=== PATIENT | male | born 1955 | race Caucasian/White ===

== ENCOUNTER 2020-04-01 14:48 | Observation (INO) | payer OTHER ==
[2020-04-01] MEDS ORDERED: SODIUM CHLORIDE 0.9% 1,000 ML IV STA (15:45)
[2020-04-01] MEDS ORDERED: KETOROLAC 15 MG/ML 1 ML VIAL IVP STA (15:45)
[2020-04-01 16:03] LABS: Basophils # (A) 0.1 k/uL (0-0.2); Basophils % (A) 1 %; Eosinophils # (A) 0.1 k/uL (0-0.7); Eosinophils % (A) 1 %; HGB 16.4 gm/dL (13.0-17.5); Lymphocytes # (A) 1.2 k/uL (1.0-4.8); Lymphocytes % (A) 11 %; MCH 31.6 pg (25.0-35.0); MCHC 34.3 g/dL (31.0-37.0); MCV 92.1 fL (80.0-100.0); Mean Platelet Volume 6.5; Monocytes # (A) 0.8 k/uL (0-1.0); Monocytes % (A) 7 %; Neutrophils # (A) 9.2 k/uL (1.3-7.7); Neutrophils % (A) 79 %; Platelet Count 342 k/uL (150-450); RBC 5.21 m/uL (4.30-5.90); RDW 13.1 % (11.5-15.5); WBC 11.6 k/uL (3.8-10.6)
[2020-04-01 16:04] LABS: Appearance,Urine Clear (Clear); Bilirubin,Urine Negative (Negative); Blood,Urine Negative (Negative); Color,Urine Light Yellow; Glucose,Urine (UA) Negative (Negative); Ketones,Urine Negative (Negative); Leukocyte Esterase,Urine Negative (Negative); Nitrite,Urine Negative (Negative); Protein,Urine Negative (Negative); Specific Gravity,Urine 1.004 (1.001-1.035); Urobilinogen,Urine <2.0 mg/dL (<2.0)
--- NOTE | 2020-04-01 16:13 | ED ---
Abdominal Pain HPI - General Source: patient Mode of arrival: ambulatory Limitations: no limitations <Radha Minor - Last Filed: 04/01/20 18:30> <Miriam Johnson - Last Filed: 04/02/20 13:24> - General Chief Complaint: Abdominal Pain Stated Complaint: abd pain Time Seen by Provider: 04/01/20 15:16 - History of Present Illness Initial Comments: Patient is a 64-year-old male presenting to emergency Department with complaints of lower abdominal pain that started about 4 AM this morning. Patient states he tried to go back to sleep however he only slept for about an hour and the pain continued. He describes the pain as going back and forth his lower abdomen but then has localized to the right lower quadrant. He denies history of abdominal surgeries. He states he does not have an appetite today, but denies any nausea or vomiting. He denies diarrhea. He denies history of fever, chills, shortness of breath or chest pain. He states he had a bowel movement today which was normal. No trouble with urination. He has no further complaints at this time. Upon arrival to the ER his vital signs are stable. (Radha Minor) - Related Data Home Medications Medication Instructions Recorded Confirmed Aspirin EC [Ecotrin Low Dose] 81 mg PO DAILY 04/01/20 04/01/20 Cholecalciferol [Vitamin D3 (25 1,000 unit PO DAILY 04/01/20 04/01/20 Mcg = 1000 Iu)] HYDROcodone/APAP 7.5-325MG [[place] 1 tab PO TID PRN 04/01/20 04/01/20 7.5-325] Metoprolol Succinate [Toprol XL] 50 mg PO DAILY 04/01/20 04/01/20 amLODIPine [Norvasc] 10 mg PO DAILY 04/01/20 04/01/20 lisinopriL 40 mg PO DAILY 04/01/20 04/01/20 Allergies Allergy/AdvReac Type Severity Reaction Status Date / Time No Known Allergies Allergy Verified 04/01/20 17:30 Review of Systems ROS Other: All systems not noted in ROS Statement are negative. <Radha Minor - Last Filed: 04/01/20 18:30> ROS Other: All systems not noted in ROS Statement are negative. <Miriam Johnson - Last Filed: 04/02/20 13:24> ROS Statement: Those systems with pertinent positive or pertinent negative responses have been documented in the HPI. Past Medical History Past Medical History: Hypertension Additional Past Medical History / Comment(s): hypercholestremia. History of Any Multi-Drug Resistant Organisms: None Reported Additional Past Surgical History / Comment(s): below the knee amputation. 2 fatty tumors removed. Past Psychological History: No Psychological Hx Reported Smoking Status: Never smoker Past Alcohol Use History: Rare Past Drug Use History: None Reported <Radha Minor - Last Filed: 04/01/20 18:30> General Exam Limitations: no limitations <Radha Minor - Last Filed: 04/01/20 18:30> - General Exam Comments Initial Comments: GENERAL: Patient is well-developed and well-nourished. Patient is nontoxic and in no acute distress, but does look mildly uncomfortable. HEAD: Atraumatic, normocephalic. EYES: Pupils equal round and reactive to light, extraocular movements intact, sclera anicteric, conjunctiva are normal. Eyelids were unremarkable. ENT: TMs normal, nares patent, oropharynx clear without exudates. Moist mucous membranes. NECK: Normal range of motion, supple without lymphadenopathy or JVD. LUNGS: Unlabored respirations. Breath sounds clear to auscultation bilaterally and equal. No wheezes rales or rhonchi. HEART: Regular rate and rhythm without murmurs, rubs or gallops. ABDOMEN: Tender to palpation in the right lower quadrant. Soft, normoactive bowel sounds. No guarding, no rebound. No masses appreciated. : Deferred MUSCULOSKELETAL: Normal extremities with adequate strength and normal range of motion, no pitting or edema. No clubbing or cyanosis. NEUROLOGICAL: Patient is alert and oriented x 3. Motor and sensory are also intact. Cranial nerves II through XII grossly intact. Symmetrical smile. Normal speech, normal gait. PSYCH: Normal mood, normal affect. SKIN: Warm, Dry, normal turgor, no rashes or lesions noted. (Radha Minor) Course Vital Signs 04/01/20 04/01/20 15:05 18:39 Temperature 98.6 F 98.8 F Pulse Rate 77 59 L Respiratory 20 12 Rate Blood Pressure 182/102 176/85 O2 Sat by Pulse 97 98 Oximetry Medical Decision Making - Lab Data Result diagrams: 04/01/20 15:52 04/01/20 15:52 <Radha Minor - Last Filed: 04/01/20 18:30> - Lab Data Result diagrams: 04/01/20 15:52 04/01/20 15:52 <Miriam Johnson - Last Filed: 04/02/20 13:24> - Medical Decision Making Patient is 64-year-old male here for right lower quadrant tenderness since 4 AM this morning. Vital signs are stable. Lab work shows slight leukocytosis of 11.6, rest of vitals are within normal limits. CT of the abdomen and pelvis shows appendix measuring up to 8 mm, no significant fast riding around the appendix. This could be very early acute appendicitis. She was given some fluids and pain control. We did speak to on-call surgeon, Dr. Box who agreed to admission. We will give him a dose of Zosyn, keep him NPO until further notice. Patient is agreeable with this plan of care. Case discussed with Dr. Johnson. (Radha Minor) I was available for consultation in the emergency department. The history and physical exam were done by the midlevel provider. I was consulted for this patie nts care. I reviewed the case with the midlevel provider and based on their presentation of the patient, I agree with the assessment, medical decision making and plan of care as documented. I evaluated the patient myself. I agree with the diagnosis and therefore called Dr. Box. She agreed to admit the patient. Patient remains NPO for her evaluation. Chart was dictated using [employer] dictation software. Attempts were made to correct any dictation errors however some typographical errors may persist. Patient was seen during a national state of emergency due to the Covid-19 pandemic. (Miriam Johnson) - Lab Data Lab Results 04/01/20 04/01/20 04/01/20 Range/Units 15:52 15:52 15:52 WBC 11.6 H (3.8-10.6) k/uL RBC 5.21 (4.30-5.90) m/uL Hgb 16.4 (13.0-17.5) gm/dL Hct 48.0 (39.0-53.0) % MCV 92.1 (80.0-100.0) fL MCH 31.6 (25.0-35.0) pg MCHC 34.3 (31.0-37.0) g/dL RDW 13.1 (11.5-15.5) % Plt Count 342 (150-450) k/uL Neutrophils % 79 % Lymphocytes % 11 % Monocytes % 7 % Eosinophils % 1 % Basophils % 1 % Neutrophils # 9.2 H (1.3-7.7) k/uL Lymphocytes # 1.2 (1.0-4.8) k/uL Monocytes # 0.8 (0-1.0) k/uL Eosinophils # 0.1 (0-0.7) k/uL Basophils # 0.1 (0-0.2) k/uL Sodium 137 (137-145) mmol/L Potassium 4.2 (3.5-5.1) mmol/L Chloride 101 (98-107) mmol/L Carbon Dioxide 26 (22-30) mmol/L Anion Gap 10 mmol/L BUN 15 (9-20) mg/dL Creatinine 0.97 (0.66-1.25) mg/dL Est GFR (CKD-EPI)AfAm >90 (>60 ml/min/1.73 sqM) Est GFR (CKD-EPI)NonAf 82 (>60 ml/min/1.73 sqM) Glucose 104 H (74-99) mg/dL Plasma Lactic Acid [place] (0.7-2.0) mmol/L Calcium 9.8 (8.4-10.2) mg/dL Total Bilirubin 1.1 (0.2-1.3) mg/dL AST 32 (17-59) U/L ALT 54 H (4-49) U/L Alkaline Phosphatase 125 (38-126) U/L Total Protein 7.9 (6.3-8.2) g/dL Albumin 4.7 (3.5-5.0) g/dL Lipase 91 (23-300) U/L Urine Color Light Yellow Urine Appearance Clear (Clear) Urine pH 6.0 (5.0-8.0) Ur Specific [place] 1.004 (1.001-1.035) Urine Protein Negative (Negative) Urine Glucose (UA) Negative (Negative) Urine Ketones Negative (Negative) Urine Blood Negative (Negative) Urine Nitrite Negative (Negative) Urine Bilirubin Negative (Negative) Urine Urobilinogen <2.0 (<2.0) mg/dL Ur Leukocyte Esterase Negative (Negative) 04/01/20 Range/Units 15:52 WBC (3.8-10.6) k/uL RBC (4.30-5.90) m/uL Hgb (13.0-17.5) gm/dL Hct (39.0-53.0) % MCV (80.0-100.0) fL MCH (25.0-35.0) pg MCHC (31.0-37.0) g/dL RDW (11.5-15.5) % Plt Count (150-450) k/uL Neutrophils % % Lymphocytes % % Monocytes % % Eosinophils % % Basophils % % Neutrophils # (1.3-7.7) k/uL Lymphocytes # (1.0-4.8) k/uL Monocytes # (0-1.0) k/uL Eosinophils # (0-0.7) k/uL Basophils # (0-0.2) k/uL Sodium (137-145) mmol/L Potassium (3.5-5.1) mmol/L Chloride (98-107) mmol/L Carbon Dioxide (22-30) mmol/L Anion Gap mmol/L BUN (9-20) mg/dL Creatinine (0.66-1.25) mg/dL Est GFR (CKD-EPI)AfAm (>60 ml/min/1.73 sqM) Est GFR (CKD-EPI)NonAf (>60 ml/min/1.73 sqM) Glucose (74-99) mg/dL Plasma Lactic Acid [place] 1.6 (0.7-2.0) mmol/L Calcium (8.4-10.2) mg/dL Total Bilirubin (0.2-1.3) mg/dL AST (17-59) U/L ALT (4-49) U/L Alkaline Phosphatase (38-126) U/L Total Protein (6.3-8.2) g/dL Albumin (3.5-5.0) g/dL Lipase (23-300) U/L Urine Color Urine Appearance (Clear) Urine pH (5.0-8.0) Ur Specific [place] (1.001-1.035) Urine Protein (Negative) Urine Glucose (UA) (Negative) Urine Ketones (Negative) Urine Blood (Negative) Urine Nitrite (Negative) Urine Bilirubin (Negative) Urine Urobilinogen (<2.0) mg/dL Ur Leukocyte Esterase (Negative) Disposition Decision Date: 04/01/20 Decision Time: 18:07 <Radha Minor - Last Filed: 04/01/20 18:30> <Miriam Johnson - Last Filed: 04/02/20 13:24> Clinical Impression: Abdominal pain, Appendicitis Disposition: ADMITTED IP TO THIS HOSP Condition: Good
[2020-04-01 16:14] LABS: ALT 54 U/L (4-49); AST 32 U/L (17-59); African American GFR (CKD) >90 (>60 ml/min/1.73 sqM); Albumin 4.7 g/dL (3.5-5.0); Alkaline Phosphatase 125 U/L (38-126); Anion Gap 10 mmol/L; Blood Urea Nitrogen 15 mg/dL (9-20); Calcium 9.8 mg/dL (8.4-10.2); Carbon Dioxide 26 mmol/L (22-30); Chloride 101 mmol/L (98-107); Glucose 104 mg/dL (74-99); Non-African American GFR(CKD) 82 (>60 ml/min/1.73 sqM); Potassium 4.2 mmol/L (3.5-5.1); Sodium 137 mmol/L (137-145); Total Bilirubin 1.1 mg/dL (0.2-1.3); Total Protein 7.9 g/dL (6.3-8.2)
--- NOTE | 2020-04-01 17:22 | CT ---
EXAMINATION TYPE: CT abdomen pelvis w con DATE OF EXAM: 04/01/2020 COMPARISON: None HISTORY: RLQ pain CT DLP: 1744.5 mGycm Automated exposure control for dose reduction was used. CONTRAST: Performed with IV Contrast, patient injected with 100 mL of Isovue 300. The lung bases are clear. There is no pleural effusion. Heart size is normal. There is no pericardial effusion. There is fatty infiltration of the liver. Gallbladder appears normal. Bile ducts are not dilated. Spl een is intact. There is no pancreatic mass. Stomach is intact. There is no adrenal mass. Kidneys show satisfactory contrast opacification. There is no hydronephrosi s. There is no retroperitoneal adenopathy. The delayed images show normal renal excretion. There is n o evidence of a renal mass. Ureters are not dilated. Bladder distends smoothly. There is no inguinal hernia. There is no free fluid in the pelvis. There is no sign of a pelvic mass. Appendix measures up to 8 mm. I do not see any significant fat stranding around the appendix. Lumbar vertebra have normal alignment. Posterior elements are intact. Disc spaces are fairly normal. There is no compression fracture. The bony pelvis is intact. Hip joints are intact. IMPRESSION: Appendix is top normal in size. No renal stone or obstruction. A very early acute appendicitis cannot be entirely excluded.
[2020-04-01] MEDS ORDERED: MORPHINE SULFATE 4 MG/ML SYRINGE IV PRN (18:05)
[2020-04-01] MEDS ORDERED: NALOXONE 0.4 MG/ML 1 ML VIAL IV PRN (18:05)
[2020-04-01] MEDS ORDERED: KETOROLAC 15 MG/ML 1 ML VIAL IVP PRN (18:05)
[2020-04-01] MEDS ORDERED: ONDANSETRON 4 MG/2 ML VIAL IVP PRN (18:05)
[2020-04-01] MEDS ORDERED: ACETAMINOPHEN TAB 325 MG TAB PO PRN (18:05)
[2020-04-01] MEDS ORDERED: PIPERACILLIN-TAZOBACTAM 3.375 GM in SODIUM CHLORIDE 0.9% 100 ML IVPB STA (18:06)
--- NOTE | 2020-04-01 18:31 | P.GSHP ---
History of Present Illness H&P Date: 04/01/20 Chief Complaint: Abdominal pain The patient's a 64-year-old man who began having abdominal pain in the mid abdomen about 4 AM. He thought maybe he needed to have a bowel movement so went into the bathroom and did have a bowel movement with no relief of pain. He laid down to go to sleep and wasn't able to fall asleep very long. The pain gradually radiated to the right lower quadrant. He had no appetite. He had some fevers and chills. He has never had anything like this in the past. No prior abdominal surgery. No diarrhea, constipation, blood in the stool or urin e. No prior viral illness. No notes is been ill. - Review of Systems All systems: negative Past Medical History Past Medical History: Hypertension Additional Past Medical History / Comment(s): hypercholestremia. History of Any Multi-Drug Resistant Organisms: None Reported Additional Past Surgical History / Comment(s): below the knee amputation. 2 fatty tumors removed. Past Psychological History: No Psychological Hx Reported Smoking Status: Never smoker Past Alcohol Use History: Rare Past Drug Use History: None Reported Medications and Allergies Home Medications Medication Instructions Recorded Confirmed Type Aspirin EC [Ecotrin Low Dose] 81 mg PO DAILY 04/01/20 04/01/20 History Cholecalciferol [Vitamin D3 (25 1,000 unit PO DAILY 04/01/20 04/01/20 History Mcg = 1000 Iu)] HYDROcodone/APAP 7.5-325MG [[place] 1 tab PO TID PRN 04/01/20 04/01/20 History 7.5-325] Metoprolol Succinate [Toprol XL] 50 mg PO DAILY 04/01/20 04/01/20 History amLODIPine [Norvasc] 10 mg PO DAILY 04/01/20 04/01/20 History lisinopriL 40 mg PO DAILY 04/01/20 04/01/20 History Allergies Allergy/AdvReac Type Severity Reaction Status Date / Time No Known Allergies Allergy Verified 04/01/20 17:30 Surgical - Exam Osteopathic Statement: *. No significant issues noted on an osteopathic structural exam other than those noted in the History and Physical/Consult. Vital Signs Temp Pulse Resp BP Pulse Ox 98.6 F 77 20 182/102 97 04/01/20 15:05 04/01/20 15:05 04/01/20 15:05 04/01/20 15:05 04/01/20 15:05 - General well developed, well nourished, no distress - Eyes normal ocular movement - Neck trachea midline - Respiratory normal respiratory effort, clear to auscultation - Cardiovascular Rhythm: regular - Abdomen Abdomen: soft, tender (Right lower quadrant), guarding (Mild voluntary), no rigid, rebound (Tender to percussion right lower quadrant) Hernia: no umbilical Results - Labs 04/01/20 15:52 04/01/20 15:52 Abnormal Lab Results - Last 24 Hours (Table) 04/01/20 04/01/20 Range/Units 15:52 15:52 WBC 11.6 H (3.8-10.6) k/uL Neutrophils # 9.2 H (1.3-7.7) k/uL Glucose 104 H (74-99) mg/dL ALT 54 H (4-49) U/L Diabetes panel 04/01/20 Range/Units 15:52 Sodium 137 (137-145) mmol/L Potassium 4.2 (3.5-5.1) mmol/L Chloride 101 (98-107) mmol/L Carbon Dioxide 26 (22-30) mmol/L BUN 15 (9-20) mg/dL Creatinine 0.97 (0.66-1.25) mg/dL Glucose 104 H (74-99) mg/dL Calcium 9.8 (8.4-10.2) mg/dL AST 32 (17-59) U/L ALT 54 H (4-49) U/L Alkaline Phosphatase 125 (38-126) U/L Total Protein 7.9 (6.3-8.2) g/dL Albumin 4.7 (3.5-5.0) g/dL Calcium panel 04/01/20 Range/Units 15:52 Calcium 9.8 (8.4-10.2) mg/dL Albumin 4.7 (3.5-5.0) g/dL Pituitary panel 04/01/20 Range/Units 15:52 Sodium 137 (137-145) mmol/L Potassium 4.2 (3.5-5.1) mmol/L Chloride 101 (98-107) mmol/L Carbon Dioxide 26 (22-30) mmol/L BUN 15 (9-20) mg/dL Creatinine 0.97 (0.66-1.25) mg/dL Glucose 104 H (74-99) mg/dL Calcium 9.8 (8.4-10.2) mg/dL Adrenal panel 04/01/20 Range/Units 15:52 Sodium 137 (137-145) mmol/L Potassium 4.2 (3.5-5.1) mmol/L Chloride 101 (98-107) mmol/L Carbon Dioxide 26 (22-30) mmol/L BUN 15 (9-20) mg/dL Creatinine 0.97 (0.66-1.25) mg/dL Glucose 104 H (74-99) mg/dL Calcium 9.8 (8.4-10.2) mg/dL Total Bilirubin 1.1 (0.2-1.3) mg/dL AST 32 (17-59) U/L ALT 54 H (4-49) U/L Alkaline Phosphatase 125 (38-126) U/L Total Protein 7.9 (6.3-8.2) g/dL Albumin 4.7 (3.5-5.0) g/dL - Imaging CT scan - abdomen: report reviewed, image reviewed Assessment and Plan (1) Abdominal pain Current Visit: Yes Status: Acute Code(s): R10.9 - UNSPECIFIED ABDOMINAL PAIN SNOMED Code(s): 99727380 (2) Appendicitis Current Visit: Yes Status: Acute Code(s): K37 - UNSPECIFIED APPENDICITIS SNOMED Code(s): 21889114 Plan: I discussed early appendicitis with the patient. His history is difficult appendicitis. I recommended laparoscopic appendectomy possible open. The procedure, risks, complications in usual postoperative course was discussed with him. Questions were encouraged and answered. He'll receive prophylactic antibiotics along with DVT and ulcer prophylaxis. Recommendations to follow.
[2020-04-01] MEDS ORDERED: ROCURONIUM 10 MG/ML (10 ML VIAL) IV ONE (19:01)
[2020-04-01] MEDS ORDERED: LACTATED RINGERS 1,000 ML IV ONE (19:01)
[2020-04-01] MEDS ORDERED: HYDROmorphone (PF) 1 MG/ML ONE (19:01)
[2020-04-01] MEDS ORDERED: SUCCINYLCHOLINE CHLORIDE 100 MG/5 ML SYR IV ONE (19:01)
[2020-04-01] MEDS ORDERED: METOPROLOL TARTRATE 5 MG/5 ML VIAL IVP ONE (19:01)
[2020-04-01] MEDS ORDERED: LIDOCAINE 1% INJ 10MG/ML (20 ML MDV) ONE (19:01)
[2020-04-01] MEDS ORDERED: PROPOFOL 10 MG/ML 20 ML VIAL IV ONE (19:01)
[2020-04-01] MEDS ORDERED: fentaNYL (PF) 50 MCG/ML 2 ML AMP ONE (19:01)
[2020-04-01] MEDS ORDERED: BUPIVACAINE (PF) 0.25% 30 ML VIAL SQ ONE ×2 (19:20)
[2020-04-01] MEDS ORDERED: LIDOCAINE 1%-EPI 1:100,000 20 ML VIAL SQ ONE ×2 (19:20)
[2020-04-01] MEDS ORDERED: HYDROcodone/APAP 5-325MG 1 EACH TAB PO PRN ×2 (19:45)
[2020-04-01] MEDS ORDERED: HYDROmorphone 0.5 MG/0.5 ML SYRINGE IVP PRN (19:45)
--- NOTE | 2020-04-01 19:45 | P.OP ---
Date of Procedure: 04/01/20 Preoperative Diagnosis: Acute appendicitis Postoperative Diagnosis: Acute appendicitis Procedure(s) Performed: Laparoscopic appendectomy Anesthesia: YUN Surgeon: Denia Box Estimated Blood Loss (ml): 10 Pathology: other (Appendix) Condition: stable Disposition: PACU Indications for Procedure: The patient presented with abdominal pain which radiated down to the right lower quadrant along with fevers, chills, nausea and vomiting. CT was suggestive of early acute appendicitis Description of Procedure: The patient's taken the operative suite where he is prepped and draped in the usual sterile manner under general endotracheal anesthetic. An infraumbilical incision was made and a Veress needle was placed into the abdominal cavity. Pneumoperitoneum was established with CO2 gas. Sites are chosen for accessory trochars needs are placed through small skin incisions. The appendix is inflamed and there is some localized peritonitis. No evidence of gangrenous change. The liver, diaphragm, large and small bowel were otherwise normal where they were seen. The mesentery the appendix was taken down with harmonic scissors. The appendix was then ligated with 0 PDS Endoloops 2. The appendix was then transected and placed into a specimen retrieval bag. Some was examined and noted be hemostatic. The excess irrigant was suctioned out. The pneumoperitoneum was released. The trochars were removed. The specimen retrieval bag was removed. The fascia at the umbilicus was closed with 0 Vicryl. The skin incisions were closed with 4-0 Vicryl in a subcuticular manner. Steri-Strips and dressings were applied. He tolerated the procedure w ithout difficulty and was taken recovery room in satisfactory condition. According to or personnel, all counts were correct.
[2020-04-01] MEDS ORDERED: HYDROcodone/APAP 7.5-325MG 1 EACH TAB PO PRN (19:47)
[2020-04-01] MEDS ORDERED: HYDROmorphone 0.5 MG/0.5 ML SYRINGE IVP ONE ×2 (19:55→20:00)
[2020-04-01] MEDS ORDERED: SODIUM CHLORIDE 0.9% 1,000 ML IV ONE (20:11)
[2020-04-01] MEDS: SODIUM CHLORIDE 0.9% 1,000 ML IV SCH (20:58)
[2020-04-01] MEDS: FAMOTIDINE 20 MG TAB PO SCH (21:17)
[2020-04-02] MEDS: FAMOTIDINE 20 MG TAB PO SCH (07:55)
[2020-04-02] MEDS ORDERED: amLODIPine 10 MG TAB PO SCH (09:00)
[2020-04-02] MEDS ORDERED: ASPIRIN 81 MG PO SCH (09:00)
[2020-04-02] MEDS ORDERED: CHOLECALCIFEROL 1,000 UNIT TAB PO SCH (09:00)
[2020-04-02] MEDS ORDERED: METOPROLOL SUCCINATE (ER) 50 MG TAB.ER.24H PO SCH (09:00)
[2020-04-02] MEDS ORDERED: lisinopriL 20 MG TAB PO SCH (09:00)
[2020-04-02 09:12] VITALS: BP 175/82; PULSE 82; RESP 18; TEMP 97.6
--- NOTE | 2020-04-02 11:40 | P.DS ---
Providers Date of admission: 04/01/20 18:12 Expected date of discharge: 04/02/20 Attending physician: Denia Box Primary care physician: Alli Spear - Discharge Diagnosis(es) (1) Abdominal pain Current Visit: Yes Status: Acute (2) Appendicitis Current Visit: Yes Status: Acute Hospital Course: Patient presented with typical symptoms and signs of acute appendicitis. He was taken to the OR where he underwent laparoscopic appendectomy. He was given prophylactic antibiotics. Watch overnight. He was doing well postoperative day 1 and felt to be stable for discharge. Patient Condition at Discharge: Good Plan - Discharge Summary Discharge Rx Participant: No New Discharge Prescriptions: No Action Metoprolol Succinate [Toprol XL] 50 mg PO DAILY HYDROcodone/APAP 7.5-325MG [[place] 7.5-325] 1 tab PO TID PRN PRN Reason: Pain Cholecalciferol [Vitamin D3 (25 Mcg = 1000 Iu)] 1,000 unit PO DAILY lisinopriL 40 mg PO DAILY amLODIPine [Norvasc] 10 mg PO DAILY Aspirin EC [Ecotrin Low Dose] 81 mg PO DAILY Discharge Medication List Aspirin EC [Ecotrin Low Dose] 81 mg PO DAILY 04/01/20 [History] Cholecalciferol [Vitamin D3 (25 Mcg = 1000 Iu)] 1,000 unit PO DAILY 04/01/20 [History] HYDROcodone/APAP 7.5-325MG [[place] 7.5-325] 1 tab PO TID PRN 04/01/20 [History] Metoprolol Succinate [Toprol XL] 50 mg PO DAILY 04/01/20 [History] amLODIPine [Norvasc] 10 mg PO DAILY 04/01/20 [History] lisinopriL 40 mg PO DAILY 04/01/20 [History] Follow up Appointment(s)/Referral(s): Alli Spear MD [Primary Care Provider] - 1-2 days Denia Box DO [Doctor of Osteopathic Medicine] - 2 Weeks Activity/Diet/Wound Care/Special Instructions: The Band-Aids may be removed Friday then you may shower. No tub bath for 1 week. Remove the small tapes in 1 week. Follow-up with Dr. Box in 2 weeks. Call with questions or concerns. Discharge Disposition: HOME SELF-CARE
[2020-04-02] MEDS: SODIUM CHLORIDE 0.9% 1,000 ML IV SCH (12:14)
== END 2020-04-02 13:54 | disposition home or self-care (01) ==
LOC: EC 14:48 → 1SOBS 18:12
PROVIDERS: ADMIT Surgery; ATTEND Surgery
DX: K35.80 Unspecified acute appendicitis (principal); I10 Essential (primary) hypertension; Z79.899 Other long term (current) drug therapy; Z89.511 Acquired absence of right leg below knee; G47.33 Obstructive sleep apnea (adult) (pediatric); Z99.89 Dependence on other enabling machines and devices; Z87.891 Personal history of nicotine dependence; Z79.82 Long term (current) use of aspirin; Z98.890 Other specified postprocedural states
CPT/HCPCS: 44970; 96361; 96374; 99285; 36415; 88304; 80053; 83605; 83690; 85025; 81003; 74177; G0378 ×2; J2405; J2001; J3010; J1170 ×2; J1885 ×2; J0330; J2704; Q9967

== ENCOUNTER 2020-12-18 02:05 | Inpatient (IN) | payer MEDICARE, OTHER ==
[2020-12-18 02:29] LABS: Basophils # (A) 0.1 k/uL (0-0.2); Basophils % (A) 1 %; Eosinophils # (A) 0.2 k/uL (0-0.7); Eosinophils % (A) 2 %; HCT 44.1 % (39.0-53.0); HGB 15.4 gm/dL (13.0-17.5); Lymphocytes # (A) 1.6 k/uL (1.0-4.8); Lymphocytes % (A) 22 %; MCH 31.2 pg (25.0-35.0); Mean Platelet Volume 6.3; Monocytes # (A) 0.6 k/uL (0-1.0); Monocytes % (A) 9 %; Neutrophils # (A) 4.5 k/uL (1.3-7.7); Neutrophils % (A) 64 %; Platelet Count 292 k/uL (150-450); RBC 4.96 m/uL (4.30-5.90); RDW 12.9 % (11.5-15.5); WBC 7.1 k/uL (3.8-10.6)
--- NOTE | 2020-12-18 02:33 | ED ---
Chest Pain HPI - General Chief Complaint: Chest Pain Stated Complaint: Chest Pain Time Seen by Provider: 12/18/20 02:13 Source: patient Mode of arrival: wheelchair Limitations: no limitations - History of Present Illness MD Complaint: chest pain Onset/Timin -: minutes(s) Onset: during rest Pain Location: left chest Pain Radiation: LUE Severity: moderate Quality: dull Consistency: constant Improves With: nothing Worsens With: nothing Anginal Symptoms: diaphoresis, dyspnea Treatments Prior to Arrival: none - Related Data Home Medications Medication Instructions Recorded Confirmed Aspirin EC [Ecotrin Low Dose] 81 mg PO DAILY 04/01/20 04/01/20 Cholecalciferol [Vitamin D3 (25 1,000 unit PO DAILY 04/01/20 04/01/20 Mcg = 1000 Iu)] HYDROcodone/APAP 7.5-325MG [[place] 1 tab PO TID PRN 04/01/20 04/01/20 7.5-325] Metoprolol Succinate [Toprol XL] 50 mg PO DAILY 04/01/20 04/01/20 amLODIPine [Norvasc] 10 mg PO DAILY 04/01/20 04/01/20 lisinopriL 40 mg PO DAILY 04/01/20 04/01/20 Allergies Allergy/AdvReac Type Severity Reaction Status Date / Time No Known Allergies Allergy Verified 12/18/20 02:10 Review of Systems ROS Statement: Those systems with pertinent positive or pertinent negative responses have been documented in the HPI. ROS Other: All systems not noted in ROS Statement are negative. Constitutional: Denies: fever, chills Respiratory: Reports: dyspnea. Denies: cough Cardiovascular: Reports: chest pain. Denies: palpitations, orthopnea, edema, syncope Gastrointestinal: Denies: abdominal pain, nausea, vomiting Genitourinary: Denies: dysuria, hematuria Musculoskeletal: Denies: back pain Skin: Denies: rash Neurological: Denies: headache, weakness, numbness EKG Findings - EKG Results: EKG: interpreted by SAI KATHLEEN, sinus rhythm (Rate 67 bpm), normal axis, normal QRS, normal ST/T, no acute changes Past Medical History Past Medical History: Coronary Artery Disease (CAD), Hypertension, Sleep Apnea/CPAP/BIPAP Additional Past Medical History / Comment(s): hypercholestremia History of Any Multi-Drug Resistant Organisms: None Reported Past Surgical History: Heart Catheterization Additional Past Surgical History / Comment(s): below the knee amputation. 2 fatty tumors removed. Past Anesthesia/Blood Transfusion Reactions: No Reported Reaction Past Psychological History: No Psychological Hx Reported Smoking Status: Former smoker Past Alcohol Use History: Rare Past Drug Use History: None Reported General Exam Limitations: no limitations General appearance: alert, in no apparent distress Head exam: Present: atraumatic, normocephalic Eye exam: Present: normal appearance. Absent: scleral icterus, conjunctival injection ENT exam: Present: normal oropharynx Neck exam: Present: normal inspection Respiratory exam: Present: normal lung sounds bilaterally. Absent: respiratory distress, wheezes, rales, rhonchi, stridor Cardiovascular Exam: Present: regular rate, normal rhythm, normal heart sounds. Absent: systolic murmur, diastolic murmur, rubs, gallop GI/Abdominal exam: Present: soft. Absent: distended, tenderness, guarding, rebound, rigid, mass Extremities exam: Present: normal capillary refill, other (Right above-knee amputation). Absent: pedal edema, calf tenderness Back exam: Present: normal inspection. Absent: CVA tenderness (R), CVA t enderness (L) Neurological exam: Present: alert Skin exam: Present: warm, dry, intact, normal color. Absent: rash Course Vital Signs 12/18/20 02:06 Temperature 98.3 F Pulse Rate 78 Respiratory 20 Rate Blood Pressure 225/96 O2 Sat by Pulse 99 Oximetry Disposition Referrals: Alli Spear MD [Primary Care Provider] - 1-2 days
[2020-12-18 02:38] LABS: INR 0.9 (<1.2); Partial Thromboplastin Time 24.9 sec (22.0-30.0); Prothrombin Time 9.8 sec (9.0-12.0)
[2020-12-18 02:45] LABS: Albumin 4.5 g/dL (3.5-5.0); Calcium 9.1 mg/dL (8.4-10.2); Magnesium 1.9 mg/dL (1.6-2.3); Potassium 3.4 mmol/L (3.5-5.1); Total Bilirubin 0.7 mg/dL (0.2-1.3); Total Protein 7.3 g/dL (6.3-8.2)
[2020-12-18] MEDS ORDERED: MORPHINE SULFATE 4 MG/ML SYRINGE IV STA (02:46)
[2020-12-18] MEDS ORDERED: ASPIRIN 81 MG PO STA (02:46)
[2020-12-18] MEDS ORDERED: NITROGLYCERIN SL TABS 0.4 MG TAB SUBLINGUAL STA (02:46)
--- NOTE | 2020-12-18 02:59 | XR ---
EXAMINATION TYPE: XR chest 2V DATE OF EXAM: 12/18/2020 COMPARISON: 04/13/2012 HISTORY: Chest pain TECHNIQUE: FINDINGS: Heart is normal. Lungs are clear of consolidation. There is no heart failure. There are aura st leads. There are no hilar masses. Costophrenic angles are clear. IMPRESSION: No active cardiopulmonary disease. Normal heart. No change.
[2020-12-18] MEDS ORDERED: HEPARIN SODIUM 1,000 UN/ML (10ML VL) IV ONE (03:10)
[2020-12-18] MEDS ORDERED: HEPARIN SODIUM 1,000 UN/ML (10ML VL) IV PRN (03:10)
[2020-12-18] MEDS ORDERED: NITROGLYCERIN SL TABS 0.4 MG TAB SUBLINGUAL PRN ×2 (03:11→12:19)
[2020-12-18] MEDS ORDERED: HEPARIN SOD,PORK IN 0.45% NACL 25,000 UNIT in 0.45% NACL 1 250ML.BAG IV SCH (03:15)
[2020-12-18] MEDS: METOPROLOL TARTRATE 25 MG TAB PO SCH ×2 (08:00→20:20)
[2020-12-18] MEDS ORDERED: ATORVASTATIN 40 MG TAB PO SCH (10:15)
[2020-12-18] MEDS ORDERED: VERAPAMIL 2.5 MG/ML 2 ML AMP ONE (11:01)
[2020-12-18] MEDS ORDERED: HEPARIN SODIUM 1,000 UN/ML (10ML VL) ONE (11:01)
[2020-12-18] MEDS ORDERED: fentaNYL (PF) 50 MCG/ML 2 ML AMP ONE (11:02)
[2020-12-18] MEDS ORDERED: LIDOCAINE 1% INJ 10MG/ML (20 ML MDV) ONE (11:02)
--- NOTE | 2020-12-18 11:10 | P.CRDCN ---
History of Present Illness Consult date: 12/18/20 Consult reason: chest pain History of present illness: The patient is a 65-year-old male who presented to the emergency room after experiencing epigastric discomfort with associated diaphoresis and tightness in his throat. He states he experienced a similar episode several months back, however it resolved within a half an hour. He states he was sitting in his recliner chair around 1 AM when his symptoms started. He did not take any nitroglycerin, however he did take a full-strength aspirin. He states when the pain did not resolve within a reasonable amount of time, he notified his son to bring him to the emergency room. The patient was interviewed and examined resting comfortably in bed. He does state he has been more fatigued with exertional activities during the last several months. He states caring in the groceries several days ago, he had to stop and rest due to fatigue and shortness of breath. No chest pain currently. The patient states his father has atrial fibrillation and his mother has congestive heart failure. No family history of coronary artery disease. The patient states he underwent left heart cath almost 10 years ago, which was unremarkable. He states he was told to take statins, however he discontinued the medication after several months. He states he is compliant with his current medical regimen including antihypertensives. He quit smoking several years back. He denies regular alcohol use or recreational drug use. DIAGNOSTICS: Chest x-ray shows no acute cardiopulmonary disease EKG shows sinus mechanism with mild ST depression in the lateral precordial leads Laboratory data: CBC 7.1, hemoglobin 15.4, hematocrit 44.1, platelet 292, sodium 137, potassium 3.4, BUN 20, creatinine 1.01, magnesium 1.9, AST 26, ALT 41, troponin 0.05, 0.29, 0.40 PAST MEDICAL HISTORY: Hypertension, dyslipidemia, appendicitis, right BKA REVIEW OF SYSTEMS: No fever or chills. No cough or expectoration. No diaphoresis. Patient denies headache, dizziness, blurred vision, double vision. Patient denies any stomach discomfort. No nausea, vomiting. No hematochezia. No hematemesis. Denies any black stools or blood in his stools. Denies dysuria or hematuria. No muscle weakness or numbness. PHYSICAL EXAMINATION: This is a 65-year-old obese male in no apparent distress at the time of my examination. HEENT: Head is atraumatic, normocephalic. Pupils are equal, round. Sclerae anicteric. Conjunctivae are clear. Mucous membranes of the mouth are moist. Neck is supple. There is no jugular venous distention. No carotid bruit is heard. CHEST EXAMINATION: Lungs are clear to auscultation. No chest wall tenderness is noted on palpation or with deep breathing. HEART EXAMINATION: Heart regular rate and rhythm. S1, S2 heard. No murmurs, gallops or rub. ABDOMEN: Soft, nontender. Bowel sounds are heard. No organomegaly noted. EXTREMITIES: 2+ peripheral pulses with no evidence of peripheral edema and no ca lf tenderness noted. Right BKA. NEUROLOGIC EXAMINATION: Patient is awake, alert and oriented x3. FINAL ASSESSMENT AND PLAN: Non-ST elevated myocardial infarction, rising troponins, proceed with coronary angiogram Hypertension Dyslipidemia, noncompliant with statin therapy Obesity, BMI 31 Former smoker PLAN: Continue heparin drip Proceed with coronary angiogram to rule out severe coronary artery disease Resume statin therapy Further recommendations will be based on clinical course The patient has been seen and evaluated. Plan of care has been reviewed and agreed upon by Dr Pendleton. Past Medical History Past Medical History: Coronary Artery Disease (CAD), Hypertension, Sleep Apnea/CPAP/BIPAP Additional Past Medical History / Comment(s): hypercholestremia History of Any Multi-Drug Resistant Organisms: None Reported Past Surgical History: Heart Catheterization Additional Past Surgical History / Comment(s): below the knee amputation. 2 fatty tumors removed. Past Anesthesia/Blood Transfusion Reactions: No Reported Reaction Past Psychological History: No Psychological Hx Reported Smoking Status: Former smoker Past Alcohol Use History: Rare Past Drug Use History: None Reported Additional Drug Use History / Comment(s): quit smoking 2015. Ocasional marijuana use. - Past Family History Mother Family Medical History: Congestive Heart Failure (CHF), Hypertension Father Family Medical History: Cancer, Hypertension Additional Family Medical History / Comment(s): prostate cancer Medications and Allergies Home Medications Medication Instructions Recorded Confirmed Type Cholecalciferol [Vitamin D3 (25 2,000 unit PO DAILY 04/01/20 12/18/20 History Mcg = 1000 Iu)] HYDROcodone/APAP 7.5-325MG [[place] 1 tab PO TID PRN 04/01/20 12/18/20 History 7.5-325] Metoprolol Succinate [Toprol XL] 50 mg PO DAILY 04/01/20 12/18/20 History amLODIPine [Norvasc] 10 mg PO DAILY 04/01/20 12/18/20 History lisinopriL 40 mg PO DAILY 04/01/20 12/18/20 History [place]-3 Fatty Acids [[place]-3] 1,000 mg PO DAILY 12/18/20 12/18/20 History Zinc 50 mg PO DAILY 12/18/20 12/18/20 History Allergies Allergy/AdvReac Type Severity Reaction Status Date / Time No Known Allergies Allergy Verified 12/18/20 07:15 Physical Exam Vitals: Vital Signs Temp Pulse Pulse Resp BP BP Pulse Ox 12/18/20 08:00 56 L 12/18/20 07:53 98.1 F 56 L 18 138/74 94 L 12/18/20 04:14 98.2 F 62 16 153/75 98 12/18/20 03:32 68 18 141/75 95 12/18/20 02:06 98.3 F 78 20 225/96 99 Intake and Output 12/17/20 12/18/20 12/18/20 22:59 06:59 14:59 Other: Voiding Method Toilet # Voids 1 Weight 112.4 kg Results 12/18/20 02:20 12/18/20 02:20 Cardiac Enzymes 12/18/20 12/18/20 12/18/20 Range/Units 02:20 02:20 06:04 AST 26 (17-59) U/L Troponin I 0.056 H* 0.293 H* (0.000-0.034) ng/mL 12/18/20 Range/Units 09:01 AST (17-59) U/L Troponin I 0.409 H* (0.000-0.034) ng/mL Coagulation 12/18/20 12/18/20 Range/Units 02:20 09:01 PT 9.8 (9.0-12.0) sec APTT 24.9 38.2 H (22.0-30.0) sec CBC 12/18/20 Range/Units 02:20 WBC 7.1 (3.8-10.6) k/uL RBC 4.96 (4.30-5.90) m/uL Hgb 15.4 (13.0-17.5) gm/dL Hct 44.1 (39.0-53.0) % Plt Count 292 (150-450) k/uL Comprehensive Metabolic Panel 12/18/20 Range/Units 02:20 Sodium 137 (137-145) mmol/L Potassium 3.4 L (3.5-5.1) mmol/L Chloride 104 (98-107) mmol/L Carbon Dioxide 24 (22-30) mmol/L BUN 20 (9-20) mg/dL Creatinine 1.01 (0.66-1.25) mg/dL Glucose 135 H (74-99) mg/dL Calcium 9.1 (8.4-10.2) mg/dL AST 26 (17-59) U/L ALT 41 (4-49) U/L Alkaline Phosphatase 138 H (38-126) U/L Total Protein 7.3 (6.3-8.2) g/dL Albumin 4.5 (3.5-5.0) g/dL Current Medications Generic Name Dose Route Start Last Admin Trade Name Freq PRN Reason Stop Dose Admin Aspirin 325 mg 12/19/20 09:00 Aspirin 325 Mg Tab PO DAILY [facility] Atorvastatin Calcium 40 mg 12/18/20 10:15 12/18/20 10:53 Atorvastatin 40 Mg Tab PO 40 mg DAILY SUNITA Administration Heparin Sodium (Porcine) 0 unit 12/18/20 03:10 Heparin Sodium 1,000 Un/Ml (10ml Vl) IV PER PROTOCOL PRN Low PTT Protocol Heparin Sodium/Sodium Chloride 250 mls @ 10 mls/hr 12/18/20 03:15 12/18/20 03:31 25,000 unit/ Sodium Chloride IV 8.5849 units/kg/hr .Q24H SUNITA 10 mls/hr Administration Protocol 8.5849 UNITS/KG/HR Metoprolol Tartrate 25 mg 12/18/20 09:00 12/18/20 08:00 Metoprolol Tartrate 25 Mg Tab PO 25 mg BID SUNITA Administration Nitroglycerin 0.4 mg 12/18/20 03:11 Nitroglycerin Sl Tabs 0.4 Mg Tab SUBLINGUAL Q5M PRN Chest Pain Intake and Output 12/17/20 12/18/20 12/18/20 22:59 06:59 14:59 Other: Voiding Method Toilet # Voids 1 Weight 112.4 kg 12/18/20 02:20 07/05/21 02:20
[2020-12-18] MEDS ORDERED: MIDAZOLAM 2 MG/2 ML VIAL IV ONE (11:18)
[2020-12-18] MEDS ORDERED: fentaNYL (PF) 50 MCG/ML 2 ML AMP IV ONE (11:18)
[2020-12-18] MEDS ORDERED: LIDOCAINE 1% INJ 10MG/ML (20 ML MDV) SQ ONE (11:19)
[2020-12-18] MEDS ORDERED: IV FLUID CONTINUATION 500 ML IV ONE (11:19)
[2020-12-18] MEDS ORDERED: VERAPAMIL SYRINGE (5 MG/10 ML) INTRAARTER ONE (11:22)
[2020-12-18] MEDS: HEPARIN SODIUM 1,000 UN/ML (10ML VL) IV ONE ×2 (11:27→11:52)
[2020-12-18] MEDS ORDERED: TICAGRELOR 90 MG TAB ONE (11:28)
[2020-12-18] MEDS ORDERED: TICAGRELOR 90 MG TAB PO ONE (11:30)
[2020-12-18] MEDS: NITROGLYCERIN 1000MCG/10ML SYRINGE INTRACORON ONE ×2 (11:39→11:52)
[2020-12-18] MEDS ORDERED: IOPAMIDOL-370 125ML BTL INJ ONE (11:50)
[2020-12-18] MEDS ORDERED: IOPAMIDOL-370 100ML BTL INJ ONE (11:57)
[2020-12-18] MEDS ORDERED: RX INFO: IV CONTRAST WAS GIVEN 1 EACH MISC MISCELLANE PRN (12:19)
[2020-12-18] MEDS ORDERED: ZOLPIDEM 5 MG TAB PO PRN (12:19)
[2020-12-18] MEDS ORDERED: ATROPINE SULFATE 0.1 MG/ML 10ML SYRINGE IV PRN (12:19)
[2020-12-18] MEDS ORDERED: MAG HYDROX/AL HYDROX/SIMETH 30 ML CUP PO PRN (12:19)
[2020-12-18] MEDS ORDERED: SODIUM CHLORIDE 0.9% 1,000 ML IV SCH (12:30)
--- NOTE | 2020-12-18 14:54 | CC ---
CARDIAC CATHETERIZATION REPORT Dear Dr. Spear: Mr Burroughs underwent cardiac cath and angioplasty on 12/18 and a full copy of his procedure note will be forwarded to you. In brief, he was found to have critical stenosis involving the distal right coronary artery and the proximal ramus intermedius and underwent successful stenting of both vessels. I am hoping this procedure will stabilize his status. Thank you again for allowing me to participate in this portion of his care. Please feel free to call for any questions or issues. Sincerely yours, Raphael Griffin MD. FELIPE / NEREIDA: [id number] / RAINE
--- NOTE | 2020-12-18 17:33 | P.HPIM ---
History of Present Illness H&P Date: 12/18/20 This is a 65-year-old pleasant gentleman patient of Dr. Spear he has underlying history of hyperlipidemia hypertension, obstructive sleep apnea, previous tobacco use, who was well until he experienced epigastric discomfort, and tightening of the chest and neck, this associated with diaphoresis, he does take daily aspirin, however she quit his cholesterol medication without any reasonable side effect, comes in now with acute coronary syndrome, and NSTEMI, during his ER presentation. He has relief with nitroglycerin when seen in emergency room, patient does not have any nitroglycerin at home, and was not provided for 1. Patient denies any history of coronary artery disease, heart cath was over 10 years ago, and was reportedly be to be normal In emergency room, chest x-ray shows no acute pulmonary disease, EKG shows normal sinus rhythm, with mild ST segment depression in lateral leads, hem oglobin was 15.4, WBC 7.1, creatinine 1.01, BUN 20, potassium 3.4, a LT ESTRELLA is acceptable limits, troponin was 0.0 5.29, and 0.4 Patient was seen by cardiology, and underwent heart cath December 18 showing critical disease, with stenosis distal right coronary artery, and proximal ramus, intermedius, underwent a successful stenting of both vessels. Patient remains to be on statin, beta debbie, aspirin, brilliant, and nitro when necessary. Lipitor is at 80 mg Review of Systems Constitutional: Reports as per HPI, Reports fatigue Ears, nose, mouth and throat: Reports as per HPI Cardiovascular: Reports as per HPI, Reports chest pain, Reports decreased exercise tolerance, Reports dyspnea on exertion, Denies claudication, Denies edema, Denies high blood pressure, Denies irregular heart beat, Denies leg marylou a, Denies lightheadedness, Denies orthopnea, Denies palpitations, Denies paroxysmal nocturnal dyspnea, Denies phlebitis, Denies rapid heart beat, Denies shortness of breath, Denies syncope Respiratory: Reports as per HPI, Reports snoring, Denies congestion, Denies cough, Denies cough with sputum, Denies dyspnea, Denies excessive sputum, Denies hemoptysis, Denies home oxygen, Denies pain, Denies pain on inspiration, Denies pleurisy, Denies respiratory infections, Denies sleep apnea, Denies wheezing Gastrointestinal: Reports as per HPI, Denies abdominal pain, Denies belching, Denies bloating, Denies BRBPR, Denies change in bowel habits, Denies coffee ground emesis, Denies constipation, Denies diarrhea, Denies dyspepsia, Denies early satiety, Denies excessive gas, Denies heartburn, Denies hematemesis, Denies hematochezia, Denies indigestion, Denies jaundice, Denies lactose intolerance, Denies loss of appetite, Denies melena, Denies nausea, Denies vomiting Genitourinary: Reports as per HPI, Denies urinary frequency Musculoskeletal: Denies gait dysfunction, Denies hot joints, Denies leg n umbness/tingling Integumentary: Reports as per HPI Neurological: Reports as per HPI, Denies aphasia, Denies ataxia, Denies balance difficulties, Denies burning pain, Denies change in mentation, Denies change in smell/taste, Denies change in speech, Denies confusion, Denies convulsions, Denies double vision, Denies gait dysfunction, Denies head injury, Denies headaches, Denies hearing difficulties, Denies lack of coordination, Denies loss of vision, Denies memory loss, Denies migraines, Denies motor disturbance, Denies numbness, Denies paralysis, Denies paresthesias, Denies seizures, Denies sensory deficit, Denies spasticity, Denies syncope, Denies tic, Denies tingling, Denies transient paralysis, Denies tremors, Denies vertigo, Denies weakness, Denies visual changes Psychiatric: Reports as per HPI, Denies change in sleep habits, Denies difficulty concentrating, Denies hypersomnia, Denies insomnia, Denies suicidal ideation Endocrine: Reports as per HPI, Denies fatigue, Denies heat intolerance, Denies high blood sugars, Denies low blood sugars Hematologic/Lymphatic: Reports as per HPI Allergic/Immunologic: Reports as per HPI Past Medical History Past Medical History: Coronary Artery Disease (CAD), Hypertension, Sleep Apnea/CPAP/BIPAP Additional Past Medical History / Comment(s): hypercholestremia History of Any Multi-Drug Resistant Organisms: None Reported Past Surgical History: Heart Catheterization Additional Past Surgical History / Comment(s): below the knee amputation. 2 fatty tumors removed. Past Anesthesia/Blood Transfusion Reactions: No Reported Reaction Past Psychological History: No Psychological Hx Reported Smoking Status: Former smoker Past Alcohol Use History: Rare Past Drug Use History: None Reported Additional Drug Use History / Comment(s): quit smoking 2016. Ocasional marijuana use. - Past Family History Mother Family Medical History: Cancer (Bladder cancer), Congestive Heart Failure (CHF), Hypertension Father Family Medical History: Cancer, Hypertension Additional Family Medical History / Comment(s): prostate cancer Brother(s) Family Medical History: Congestive Heart Failure (CHF) Sister(s) Family Medical History: Cancer (Uterine cancer) Medications and Allergies Home Medications Medication Instructions Recorded Confirmed Type Cholecalciferol [Vitamin D3 (25 2,000 unit PO DAILY 04/01/20 12/18/20 History Mcg = 1000 Iu)] HYDROcodone/APAP 7.5-325MG [[place] 1 tab PO TID PRN 04/01/20 12/18/20 History 7.5-325] Metoprolol Succinate [Toprol XL] 50 mg PO DAILY 04/01/20 12/18/20 History amLODIPine [Norvasc] 10 mg PO DAILY 04/01/20 12/18/20 History lisinopriL 40 mg PO DAILY 04/01/20 12/18/20 History [place]-3 Fatty Acids [[place]-3] 1,000 mg PO DAILY 12/18/20 12/18/20 History Zinc 50 mg PO DAILY 12/18/20 12/18/20 History Allergies Allergy/AdvReac Type Severity Reaction Status Date / Time No Known Allergies Allergy Verified 12/18/20 07:15 Physical Exam Vitals: Vital Signs Temp Pulse Pulse Resp BP BP Pulse Ox 12/18/20 08:00 56 L 12/18/20 07:53 98.1 F 56 L 18 138/74 94 L 12/18/20 04:14 98.2 F 62 16 153/75 98 12/18/20 03:32 68 18 141/75 95 12/18/20 02:06 98.3 F 78 20 225/96 99 Intake and Output 12/17/20 12/18/20 12/18/20 22:59 06:59 14:59 Intake Total 100 Balance 100 Intake: IV 100 Other: Voiding Method Toilet # Voids 1 Weight 112.4 kg - Constitutional General appearance: cooperative, no acute distress - EENT Eyes: EOMI, PERRLA, dentition normal, normal appearance ENT: hearing grossly normal - Neck Neck: normal ROM - Respiratory Respiratory: bilateral: CTA, negative: diminished, dullness, rales, rhonchi - Cardiovascular Rhythm: regular Heart sounds: normal: S1, S2 Abnormal Heart Sounds: no systolic murmur, no diastolic murmur, no rub, no S3 Gallop, no S4 Gallop, no click, no other - Gastrointestinal General gastrointestinal: normal bowel sounds, soft - Integumentary Integumentary: normal, normal turgor - Neurologic Neurologic: CNII-XII intact - Musculoskeletal Musculoskeletal: gait normal, strength equal bilaterally Results CBC & Chem 7: 12/18/20 02:20 12/18/20 02:20 Labs: Abnormal Lab Results - Last 24 Hours (Table) 12/18/20 12/18/20 12/18/20 Range/Units 02:20 02:20 06:04 APTT (22.0-30.0) sec Potassium 3.4 L (3.5-5.1) mmol/L Glucose 135 H (74-99) mg/dL Alkaline Phosphatase 138 H (38-126) U/L Troponin I 0.056 H* 0.293 H* (0.000-0.034) ng/mL 12/18/20 12/18/20 Range/Units 09:01 09:01 APTT 38.2 H (22.0-30.0) sec Potassium (3.5-5.1) mmol/L Glucose (74-99) mg/dL Alkaline Phosphatase (38-126) U/L Troponin I 0.409 H* (0.000-0.034) ng/mL Laboratory Results WBC 7.1 k/uL (3.8-10.6) 12/18/20 02:20 RBC 4.96 m/uL (4.30-5.90) 12/18/20 02:20 Hgb 15.4 gm/dL (13.0-17.5) 12/18/20 02:20 Hct 44.1 % (39.0-53.0) 12/18/20 02:20 MCV 89.0 fL (80.0-100.0) 12/18/20 02:20 MCH 31.2 pg (25.0-35.0) 12/18/20 02:20 MCHC 35.0 g/dL (31.0-37.0) 12/18/20 02:20 RDW 12.9 % (11.5-15.5) 12/18/20 02:20 Plt Count 292 k/uL (150-450) 12/18/20 02:20 MPV 6.3 12/18/20 02:20 Neutrophils % 64 % 12/18/20 02:20 Lymphocytes % 22 % 12/18/20 02:20 Monocytes % 9 % 12/18/20 02:20 Eosinophils % 2 % 12/18/20 02:20 Basophils % 1 % 12/18/20 02:20 Neutrophils # 4.5 k/uL (1.3-7.7) 12/18/20 02:20 Lymphocytes # 1.6 k/uL (1.0-4.8) 12/18/20 02:20 Monocytes # 0.6 k/uL (0-1.0) 12/18/20 02:20 Eosinophils # 0.2 k/uL (0-0.7) 12/18/20 02:20 Basophils # 0.1 k/uL (0-0.2) 12/18/20 02:20 PT 9.8 sec (9.0-12.0) 12/18/20 02:20 INR 0.9 (<1.2) 12/18/20 02:20 APTT 38.2 sec (22.0-30.0) H 12/18/20 09:01 Sodium 137 mmol/L (137-145) 12/18/20 02:20 Potassium 3.4 mmol/L (3.5-5.1) L 12/18/20 02:20 Chloride 104 mmol/L (98-107) 12/18/20 02:20 Carbon Dioxide 24 mmol/L (22-30) 12/18/20 02:20 Anion Gap 9 mmol/L 12/18/20 02:20 BUN 20 mg/dL (9-20) 12/18/20 02:20 Creatinine 1.01 mg/dL (0.66-1.25) 12/18/20 02:20 Est GFR (CKD-EPI)AfAm 89 (>60 ml/min/1.73 sqM) 12/18/20 02:20 Est GFR (CKD-EPI)NonAf 77 (>60 ml/min/1.73 sqM) 12/18/20 02:20 Glucose 135 mg/dL (74-99) H 12/18/20 02:20 Calcium 9.1 mg/dL (8.4-10.2) 12/18/20 02:20 Magnesium 1.9 mg/dL (1.6-2.3) 12/18/20 02:20 Total Bilirubin 0.7 mg/dL (0.2-1.3) 12/18/20 02:20 AST 26 U/L (17-59) 12/18/20 02:20 ALT 41 U/L (4-49) 12/18/20 02:20 Alkaline Phosphatase 138 U/L (38-126) H 12/18/20 02:20 Troponin I 0.409 ng/mL (0.000-0.034) H* 12/18/20 09:01 Total Protein 7.3 g/dL (6.3-8.2) 12/18/20 02:20 Albumin 4.5 g/dL (3.5-5.0) 12/18/20 02:20 Thrombosis Risk Factor Assmnt - Choose All That Apply Any of the Below Risk Factors Present?: Yes Each Factor Represents 1 point: Obesity (BMI >25) Other Risk Factors: Yes Each Risk Factor Represents 2 Points: Age 61-74 years Thrombosis Risk Factor Assessment Total Risk Factor Score: 3 Thrombosis Risk Factor Assessment Level: Moderate Risk Assessment and Plan Plan: [address] segment depression, and lateral leads, has critical disease in distal right coronary artery, and proximal ramus intermedius, underwent stenting on 2 vessels, 12/18/2020, patient remains to be on aspirin, Brillinta, Lipitor 80 a started, and Toprol XL 25 twice a day lisinopril 20 mg twice a day 2. Hyperlipidemia, now on statin 3. Hypertension, lisinopril 40 mg, current dose at 20 mg twice a day 4. History of obstructive sleep apnea, on CPAP device, from home no O2 requirements 5 Previous tobacco use, quit over 5 years ago, 6 Beer binging, 6 beers per 1 day each 1 weekend GI prophylaxis with Pepcid Senokot 1 daily and DVT prophylaxis early ambulation, on aspirin, and brillianta
[2020-12-18] MEDS: TICAGRELOR 90 MG TAB PO SCH (20:20)
[2020-12-18] MEDS: lisinopriL 20 MG TAB PO SCH (20:20)
[2020-12-18] MEDS: FAMOTIDINE 20 MG TAB PO SCH (20:20)
[2020-12-18] MEDS ORDERED: ATORVASTATIN 80 MG TAB PO SCH (21:00)
[2020-12-18] MEDS ORDERED: FUROSEMIDE 10 MG/ML 4 ML VIAL IV STA (22:22)
[2020-12-18] MEDS ORDERED: ALPRAZolam 0.25 MG TAB PO PRN (22:22)
--- NOTE | 2020-12-18 23:47 | XR ---
EXAMINATION TYPE: XR chest 1V portable DATE OF EXAM: 12/18/2020 COMPARISON: Today HISTORY: Fluid overload. TECHNIQUE: FINDINGS: Heart is normal. Lungs are clear of infiltrate. There is no heart failure. I see no evidenc e of pleural fluid. There are no hilar masses. There is minimal pleural thickening at the lung apices . IMPRESSION: Apical pleural scarring. No acute lung disease. No heart failure. No change.
--- NOTE | 2020-12-19 07:18 | ECHOF ---
Referral Reason:abn CE MEASUREMENTS -------- HEIGHT: 188.0 cm WEIGHT: 112.0 kg BP: 138/74 RVIDd: 2.8 cm (< 3.3) IVSd: 1.3 cm (0.6 - 1.1) LVIDd: 4.2 cm (3.9 - 5.3) LVPWd: 1.3 cm (0.6 - 1.1) IVSs: 1.9 cm LVIDs: 3.0 cm LVPWs: 1.6 cm LA Diam: 4.2 cm (2.7 - 3.8) LAESV Index (A-L): 31.29 ml/m Ao Diam: 3.7 cm (2.0 - 3.7) AV Cusp: 2.2 cm (1.5 - 2.6) MV EXCURSION: 17.332 mm (> 18.000) MV EF SLOPE: 104 mm/s (70 - 150) EPSS: 0.8 cm MV E Ashish: 0.76 m/s MV DecT: 272 ms MV A Ashish: 0.75 m/s MV E/A Ratio: 1.01 FINDINGS -------- Sinus rhythm. This was a technically adequate study. The left ventricular size is normal. There is mild concentric left ventricular hypertrophy. Overa ll left ventricular systolic function is low-normal with, an EF between 50 - 55 %. Basal inferior L V wall motion is hypokinetic. Basal inferoseptal LV wall motion is hypokinetic. The right ventricle is normal in size. LA is midly dilated 29-33ml/m2. The right atrial size is normal. There is mild aortic valve sclerosis. The mitral valve is normal. Mild mitral regurgitation is present. The tricuspid valve appears structurally normal. Trace tricuspid regurgitation present. There is no pulmonic regurgitation present. The aortic root size is normal. IVC Not well visulized. There is no pericardial effusion. CONCLUSIONS -------- 1. There is mild concentric left ventricular hypertrophy. 2. Overall left ventricular systolic function is low-normal with, an EF between 50 - 55 %. 3. Basal inferior LV wall motion is hypokinetic. 4. Basal inferoseptal LV wall motion is hypokinetic. 5. LA is midly dilated 29-33ml/m2. 6. There is mild aortic valve sclerosis. 7. Mild mitral regurgitation is present. 8. Trace tricuspid regurgitation present. 9. There is no pericardial effusion. FILAMENT MAKER: Aliya Varma RDCS
[2020-12-19 08:04] LABS: Basophils # (A) 0.1 k/uL (0-0.2); Basophils % (A) 1 %; Eosinophils # (A) 0.1 k/uL (0-0.7); Eosinophils % (A) 1 %; HCT 43.3 % (39.0-53.0); HGB 14.9 gm/dL (13.0-17.5); Lymphocytes % (A) 13 %; MCH 30.5 pg (25.0-35.0); MCHC 34.3 g/dL (31.0-37.0); Mean Platelet Volume 6.4; Monocytes # (A) 0.5 k/uL (0-1.0); Monocytes % (A) 7 %; Neutrophils # (A) 6.2 k/uL (1.3-7.7); Neutrophils % (A) 78 %; Platelet Count 278 k/uL (150-450); RBC 4.87 m/uL (4.30-5.90)
--- NOTE | 2020-12-19 08:04 | CC ---
CARDIAC CATHETERIZATION REPORT PROCEDURE PERFORMED: Cardiac catheterization. INDICATIONS FOR PROCEDURE: Mr. Burroughs is a 65-year-old male with a known history of hypertension who presented with symptoms of chest discomfort, with mild troponin elevation. He was evaluated by Dr. Pendleton and recommendation made regarding cardiac catheterization. The procedure, as well as the risks and the complications, were discussed with the patient who is in full understanding and agreement. 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 Using Xylocaine anesthesia such technique a 6-[place] sheath was introduced in the right radial artery. Selective right and left coronary angiography performed using 5-[place] 3.5 bend right and left Ej catheter. Multiple views of the coronary artery including hemiaxial views were obtained. Following that, a 5-[place] tight pigtail catheter introduced into the left ventricle and pressures were calculated. Following that, catheters were removed, images were reviewed. LEFT MAIN: This is a short-sized vessel bifurcating into left anterior descending and left circumflex, and ramus intermedius. Left main coronary artery has no evidence of high-grade stenosis. LEFT ANTERIOR DESCENDING ARTERY: This is a large-sized vessel reaching to the apex tapers down distal third, giving rise to large diagonal branch proximally. The left anterior descending artery has mild plaque proximally of 20% without any evidence of high-grade stenosis. LEFT CIRCUMFLEX: This is a nondominant vessel giving rise to one obtuse marginal branch the left circumflex, as well as branches, have no evidence of obstructive disease. RAMUS INTERMEDIUS: This is a large-sized vessel reaching to the apical lateral wall. The ramus intermedius has a tubular lesion of 85% stenosis. The rest of the vessel has no high-grade stenosis. RIGHT CORONARY ARTERY: This is a dominant vessel bifurcating distally PDA and posterolateral segment branches prior to the bifurcation. It has a 99% stenosis. The rest of the vessel has no high-grade stenosis. LEFT VENTRICULOGRAM: Left ventriculogram was not performed. HEMODYNAMICS: There was no gradient across the aortic valve the ventricle end-diastolic pressure was 20-22 mmHg. CONCLUSION: 1. Critical stenosis at the distal segment of the RCA prior to the bifurcation. 2. Significant stenosis in the ramus intermedius. RECOMMENDATION: In view of finding anatomy, I recommend proceeding with angioplasty and stenting of the RCA and the ramus intermedius. The procedure as well as the risks and the complications were discussed with the patient who is in full understanding and agreement. MMSVITLANAL / IJN: [id number] / MTDD
[2020-12-19 08:08] LABS: Prothrombin Time 10.3 sec (9.0-12.0)
--- NOTE | 2020-12-19 08:08 | CC ---
CARDIAC CATHETERIZATION REPORT PROCEDURE PERFORMED: Angioplasty. INDICATIONS FOR PROCEDURE: Mr. Burroughs is a 65-year-old male with known history of hypertension who presented with symptoms of chest discomfort, had evidence non ST-segment elevation myocardial infarction. He underwent cardiac catheterization, was found to have critical stenosis in the distal right coronary artery and the proximal ramus intermedius. In view of that, recommendation regarding angioplasty and stenting. The procedure as well as the risks and complications were discussed with the patient who is in full understanding and agreement. PROCEDURE: A 6-Syriac 0.75 AL guiding catheter introduced in the system after encountering the right coronary ostium. a 0.014 balanced medium weight J-wire was advanced across the lesion, positioned distally. Then, a 2.25 x 12 mm Trek balloon was advanced and one inflation at 10 atmospheres was done. Following that, the balloon was removed and a 2.5 x 15 mm Xience Luci stent was advanced, deployed and post dilated at 14 atmospheres. After the last inflation, after appropriate wait, the balloon and the guidewire were withdrawn back in the guiding catheter. Images were obtained, repeated those images, reveal stable successful stenting. At that point, the guiding catheter, the balloon and the guidewire were removed and a 6-Syriac [place] 3.5 guiding catheter introduced in the system and a 0.014 balanced medium weight J-wire was advanced across the ramus intermedius, positioned distally. Subsequently, a 3.0 x 33 mm Xience Luci stent was advanced, deployed and dilated at 16 atmospheres. After the last inflation, after appropriate wait, the balloon and the guidewire were withdrawn back in the guiding catheter. Images were obtained, repeated. Those images reveal stable successful stenting. At that point, the guiding catheter, the balloon and the guidewire were removed. The sheath was removed, hemostasis was obtained with deployment of a TR band. There was no immediate complication, patient was returned to his room in stable condition. Of note, the patient had mild chest discomfort with the inflation that resulted in the procedure. He received 9000 units intravenous heparin throughout the procedure. His ACT was followed and he received an oral loading dose of Brilinta. RESULTS: 1. Successful stenting of the distal right coronary artery with reduction of stenosis from 99% to to 0%. 2. Successful stenting of the ramus intermedius with reduction of stenosis from 85% to 0%. RECOMMENDATION: Patient be continued on aspirin, Brilinta, beta debbie, ESTRELLA and statin the importance of dual antiplatelet treatment were discussed with the patient and his family who are in full understanding and agreement. Duration of sedation is 45 minutes. MMODL / IJN: [id number] / MTDD
[2020-12-19 08:09] LABS: African American GFR (CKD) >90 (>60 ml/min/1.73 sqM); Anion Gap 9 mmol/L; Blood Urea Nitrogen 13 mg/dL (9-20); Calcium 9.2 mg/dL (8.4-10.2); Carbon Dioxide 25 mmol/L (22-30); Chloride 103 mmol/L (98-107); Glucose 101 mg/dL (74-99); Non-African American GFR(CKD) >90 (>60 ml/min/1.73 sqM); Potassium 3.8 mmol/L (3.5-5.1); Sodium 137 mmol/L (137-145)
[2020-12-19] MEDS: lisinopriL 20 MG TAB PO SCH (08:53)
[2020-12-19] MEDS: FAMOTIDINE 20 MG TAB PO SCH (08:54)
[2020-12-19] MEDS: TICAGRELOR 90 MG TAB PO SCH (08:54)
[2020-12-19] MEDS: METOPROLOL TARTRATE 25 MG TAB PO SCH (08:54)
[2020-12-19] MEDS ORDERED: FUROSEMIDE 20 MG TAB PO SCH (09:00)
[2020-12-19] MEDS ORDERED: ASPIRIN 81 MG PO SCH (09:00)
[2020-12-19] MEDS ORDERED: SENNOSIDES-DOCUSATE SODIUM 1 EACH TAB PO SCH (09:00)
[2020-12-19] MEDS ORDERED: ASPIRIN 325 MG TAB PO SCH (09:00)
[2020-12-19 09:01] VITALS: BP 173/99; PULSE 78; RESP 18; TEMP 98.2
--- NOTE | 2020-12-19 09:50 | P.DS ---
Providers Date of admission: 12/18/20 11:37 Expected date of discharge: 12/19/20 Attending physician: Kiesha Tapia Consults: 12/18/20 03:11 Consult Physician Urgent Consulting Provider: [facility] Reason/Comments: Chief coronary syndrome Do you want consulting provider notified?: Yes 12/18/20 12:19 Consult Physician Routine Consulting Provider: [facility] Consult Reason/Comments: Post Interventional patient Do you want consulting provider notified?: Already Contacted Primary care physician: Alli Spear [facility] Course: HISTORY OF PRESENT ILLNESS This is a 65-year-old pleasant gentleman patient of Dr. Spear he has underlying history of hyperlipidemia hypertension, obstructive sleep apnea, previous tobacco use, who was well until he experienced epigastric discomfort, and tightening of the chest and neck, this associated with diaphoresis, he does take daily aspirin, however she quit his cholesterol medication without any reasonable side effect, comes in now with acute coronary syndrome, and NSTEMI, during his ER presentation. He has relief with nitroglycerin when seen in emergency room, patient does not have any nitroglycerin at home, and was not provided for 1. Patient denies any history of coronary artery disease, heart cath was over 10 years ago, and was reportedly be to be normal In emergency room, chest x-ray shows no acute pulmonary disease, EKG shows normal sinus rhythm, with mild ST segment depression in lateral leads, hemoglobin was 15.4, WBC 7.1, creatinine 1.01, BUN 20, potassium 3.4, a LT ESTRELLA is acceptable limits, troponin was 0.0 5.29, and 0.4 Patient was seen by cardiology, and underwent heart cath December 18 showing critical disease, with stenosis distal right coronary artery, and proximal ramus, intermedius, underwent a successful stenting of both vessels. Patient remains to be on statin, beta debbie, aspirin, brilliant, and nitro when necessary. Lipitor is at 80 mg 12/19: Echocardiogram reveals EF of 50-55%, mild mitral regurgitation, trace tricuspid regurgitation. Patient denies having any chest pain or shortness of breath. No lightheadedness or dizziness. Patient has been afebrile, heart rate in the 60s and 70s, blood pressure 166/93. nursing home director is sinus rhythm. Repeat blood work reveals normal CBC, normal electrolytes and renal function with creatinine of 0.78 and BUN 13. Blood sugar 101. Right triglycerides 363, cholesterol 202, LDL 101, HDL 28. Patient will be discharged home today in stable condition. Patient has been seen by cardiology and cleared for discharge. DISCHARGE DIAGNOSES 1. NSTEMI status post heart catheterization finding critical disease in distal right coronary artery, and proximal ramus intermedius, underwent stenting to the RCA and ramus intermedius on 12/18., 2. Hyperlipidemia 3. Hypertension 4. History of obstructive sleep apnea, on CPAP 5. Previous tobacco use, quit over 5 years ago, 6. Beer binging, 6 beers per 1 day each 1 weekend DISCHARGE PLAN Home Impression and plan of care have been directed as dictated by the signing physician. Gaby Doyle nurse practitioner acting as scribe for signing physician. Plan - Discharge Summary Discharge Rx Participant: No New Discharge Prescriptions: New Aspirin 81 mg PO DAILY chew Furosemide [Lasix] 20 mg PO MOWEFR #30 tab Atorvastatin [Lipitor] 80 mg PO HS #30 tab lisinopriL [Zestril] 20 mg PO BID #60 tab Ticagrelor [Brilinta] 90 mg PO BID #60 tab Metoprolol Tartrate [Lopressor] 25 mg PO BID #60 tab Nitroglycerin Sl Tabs [Nitrostat] 0.4 mg SUBLINGUAL Q5M PRN #25 tab PRN Reason: Chest Pain amLODIPine [Norvasc] 10 mg PO DAILY #90 tablet Continue HYDROcodone/APAP 7.5-325MG [[place] 7.5-325] 1 tab PO TID PRN PRN Reason: Pain Cholecalciferol [Vitamin D3 (25 Mcg = 1000 Iu)] 2,000 unit PO DAILY Zinc 50 mg PO DAILY [place]-3 Fatty Acids [[place]-3] 1,000 mg PO DAILY Discontinued Metoprolol Succinate [Toprol XL] 50 mg PO DAILY lisinopriL 40 mg PO DAILY amLODIPine [Norvasc] 10 mg PO DAILY Discharge Medication List Cholecalciferol [Vitamin D3 (25 Mcg = 1000 Iu)] 2,000 unit PO DAILY 04/01/20 [History] HYDROcodone/APAP 7.5-325MG [[place] 7.5-325] 1 tab PO TID PRN 04/01/20 [History] [place]-3 Fatty Acids [[place]ma-3] 1,000 mg PO DAILY 12/18/20 [History] Zinc 50 mg PO DAILY 12/18/20 [History] Aspirin 81 mg PO DAILY chew 12/19/20 [Rx] Atorvastatin [Lipitor] 80 mg PO HS #30 tab 12/19/20 [Rx] Furosemide [Lasix] 20 mg PO MOWEFR #30 tab 12/19/20 [Rx] Metoprolol Tartrate [Lopressor] 25 mg PO BID #60 tab 12/19/20 [Rx] Nitroglycerin Sl Tabs [Nitrostat] 0.4 mg SUBLINGUAL Q5M PRN #25 tab 12/19/20 [Rx] Ticagrelor [Brilinta] 90 mg PO BID #60 tab 12/19/20 [Rx] amLODIPine [Norvasc] 10 mg PO DAILY #90 tablet 12/19/20 [Rx] lisinopriL [Zestril] 20 mg PO BID #60 tab 12/19/20 [Rx] Follow up Appointment(s)/Referral(s): Zhang Pendleton MD [STAFF PHYSICIAN] - 1 Week (Office will call patient with an appointment date and time.) Alli Spear MD [Primary Care Provider] - 12/26/20 11:00 am Patient Instructions/Handouts: *Surgery [facility] - After Heart Catheterization - Band Sewer Instructions Discharge Disposition: HOME SELF-CARE
[2020-12-19 10:52] VITALS: BMI 31.0
[2020-12-19 12:49] LABS: Chol/HDL Ratio 7.21; LDL Cholesterol,Calculated 101.4 mg/dL (0.0-131.0); VLDL Calculation 72.6 mg/dL (5.00-40.00)
--- NOTE | 2020-12-19 13:36 | P.PN ---
Subjective Progress Note Date: 12/19/20 HISTORY OF PRESENT ILLNESS: Patient is status post cardiac catheterization with PCI to RCA and ramus intermedius. Patient examined this for the bedside. Patient denies chest pain or pressure. He denies shortness of breath. Patient's blood pressure is elevated with a systolic in the 190s. PHYSICAL EXAM: VITAL SIGNS: Reviewed. GENERAL: Well-developed in no acute distress. NECK: Supple. No JVD or thyromegaly LUNGS: Respirations even and unlabored. Lungs essentially clear to auscultation bilaterally. HEART: Regular rate and rhythm. S1 and S2 heard. EXTREMITIES: Normal range of motion. No clubbing or cyanosis. Peripheral pulses intact. No lower extremity edema. Right radial cath site with pulse present. ASSESSMENT: Non-STEMI, s/p PCI Hypertension Hyperlipidemia, noncompliant with statin therapy Former nicotine dependence Obesity PLAN: Continue dual antiplatelet therapy Continue additional cardiac medications Add Norvasc 10mg daily for optimal blood pressure control Patient may be discharged home today from a cardiac standpoint Nurse practitioner note has been reviewed by physician. Signing provider agrees with the documented findings, assessment, and plan of care. Objective - Vital Signs Vital signs: Vital Signs Temp 98.2 F 12/19/20 08:50 Pulse 78 12/19/20 08:50 Resp 18 12/19/20 08:50 BP 173/99 12/19/20 08:50 Pulse Ox 96 12/19/20 08:50 Intake & Output 12/18/20 12/19/20 12/19/20 18:59 06:59 18:59 Intake Total 100 740 180 Output Total 525 Balance 100 215 180 Weight 109.6 kg 109.6 kg Intake: IV 100 Oral 740 180 Output: Urine 525 Other: Voiding Method Toilet # Voids 2 - Labs CBC & Chem 7: 12/19/20 06:46 12/19/20 06:46 Labs: Abnormal Lab Results - Last 24 Hours (Table) 12/19/20 12/19/20 Range/Units 06:46 06:46 Glucose 101 H (74-99) mg/dL Triglycerides 363.0 H (0.0-149.0) mg/dL Cholesterol 202 H (0-200) mg/dL VLDL Cholesterol, Calc 72.60 H (5.00-40.00) mg/dL HDL Cholesterol 28.0 L (40.0-60.0) mg/dL
== END 2020-12-19 11:19 | disposition home or self-care (01) | DRG 247 ==
LOC: EC 02:05 → 3SCARD 03:11 → OBSVTOIN 11:37
PROVIDERS: ADMIT Family Medicine; ATTEND Family Medicine
PROC: 4A023N7 Measurement of Cardiac Sampling and Pressure, Left Heart, Percutaneous Approach (ICD-10-PCS; principal; 2020-12-18 10:49)
PROC: 027135Z Dilation of Coronary Artery, Two Arteries with Two Drug-eluting Intraluminal Devices, Percutaneous Approach (ICD-10-PCS; principal; 2020-12-18 10:49)
PROC: B2111ZZ Fluoroscopy of Multiple Coronary Arteries using Low Osmolar Contrast (ICD-10-PCS; principal; 2020-12-18 10:49)
DX: I21.4 Non-ST elevation (NSTEMI) myocardial infarction (principal); E78.5 Hyperlipidemia, unspecified; Z89.511 Acquired absence of right leg below knee; I25.10 Atherosclerotic heart disease of native coronary artery without angina pectoris; I08.0 Rheumatic disorders of both mitral and aortic valves; I10 Essential (primary) hypertension; G47.33 Obstructive sleep apnea (adult) (pediatric); T46.6X6A Underdosing of antihyperlipidemic and antiarteriosclerotic drugs, initial encounter; Z91.128 Patient's intentional underdosing of medication regimen for other reason; E66.9 Obesity, unspecified; Z68.31 Body mass index [BMI] 31.0-31.9, adult; Z79.82 Long term (current) use of aspirin; Z79.899 Other long term (current) drug therapy; Z87.891 Personal history of nicotine dependence; Z87.2 Personal history of diseases of the skin and subcutaneous tissue; Z87.19 Personal history of other diseases of the digestive system; Z90.49 Acquired absence of other specified parts of digestive tract; Z98.890 Other specified postprocedural states; Z71.3 Dietary counseling and surveillance; Z80.52 Family history of malignant neoplasm of bladder; Z82.49 Family history of ischemic heart disease and other diseases of the circulatory system; Z80.42 Family history of malignant neoplasm of prostate; Z80.49 Family history of malignant neoplasm of other genital organs
CPT/HCPCS: 36415; 71045; 71046; 80048; 80053; 80061; 83735; 83880; 84484; 85025; 85610; 85730; 93005; 93306; 93458; 96374; 99285

== ENCOUNTER 2021-03-15 01:08 | Emergency (ER) | payer MEDICARE, OTHER ==
[2021-03-15 01:17] VITALS: BP 162/85; PULSE 89; RESP 20; TEMP 98.4
--- NOTE | 2021-03-15 02:20 | ED ---
General Adult HPI - General Chief complaint: Extremity Injury, Upper Stated complaint: R arm bruising Time Seen by Provider: 03/15/21 01:31 Source: patient Mode of arrival: ambulatory Limitations: no limitations - History of Present Illness Initial comments: 65-year-old male presents to the emergency room for a chief complaint of pain in the right arm. Patient reports that about a week ago he was pulling on a wrench very hard when he felt a pop in his bicep area. It has been slightly painful at that time. A couple days ago he started to notice bruising around the area and became concerned as he is on Brillinta. Patient does have an appointment with his doctor who wanted to get it checked out.Patient has no other complaints at this time including shortness of breath, chest pain, abdominal pain, nausea or vomiting, headache, or visual changes. - Related Data Home Medications Medication Instructions Recorded Confirmed Cholecalciferol [Vitamin D3 (25 2,000 unit PO DAILY 04/01/20 12/18/20 Mcg = 1000 Iu)] HYDROcodone/APAP 7.5-325MG [[place] 1 tab PO TID PRN 04/01/20 12/18/20 7.5-325] [place]-3 Fatty Acids [[place]-3] 1,000 mg PO DAILY 12/18/20 12/18/20 Zinc 50 mg PO DAILY 12/18/20 12/18/20 Previous Rx's Medication Instructions Recorded Aspirin 81 mg PO DAILY chew 12/19/20 Atorvastatin [Lipitor] 80 mg PO HS #30 tab 12/19/20 Furosemide [Lasix] 20 mg PO MOWEFR #30 tab 12/19/20 Metoprolol Tartrate [Lopressor] 25 mg PO BID #60 tab 12/19/20 Nitroglycerin Sl Tabs [Nitrostat] 0.4 mg SUBLINGUAL Q5M PRN #25 tab 12/19/20 Ticagrelor [Brilinta] 90 mg PO BID #60 tab 12/19/20 amLODIPine [Norvasc] 10 mg PO DAILY #90 tablet 12/19/20 lisinopriL [Zestril] 20 mg PO BID #60 tab 12/19/20 Allergies Allergy/AdvReac Type Severity Reaction Status Date / Time No Known Allergies Allergy Verified 03/15/21 01:13 Review of Systems ROS Statement: Those systems with pertinent positive or pertinent negative responses have been documented in the HPI. ROS Other: All systems not noted in ROS Statement are negative. Past Medical History Past Medical History: Coronary Artery Disease (CAD), Hypertension, Sleep Apnea/CPAP/BIPAP Additional Past Medical History / Comment(s): hypercholestremia History of Any Multi-Drug Resistant Organisms: None Reported Past Surgical History: Heart Catheterization Additional Past Surgical History / Comment(s): below the knee amputation. 2 fatty tumors removed. Past Anesthesia/Blood Transfusion Reactions: No Reported Reaction Past Psychological History: No Psychological Hx Reported Smoking Status: Former smoker Past Alcohol Use History: Rare Past Drug Use History: None Reported - Past Family History Mother Family Medical History: Cancer (Bladder cancer), Congestive Heart Failure (CHF), Hypertension Father Family Medical History: Cancer, Hypertension Additional Family Medical History / Comment(s): prostate cancer Brother(s) Family Medical History: Congestive Heart Failure (CHF) Sister(s) Family Medical History: Cancer (Uterine cancer) General Exam Limitations: no limitations General appearance: alert, in no apparent distress Head exam: Present: atraumatic Eye exam: Present: normal appearance, PERRL, EOMI. Absent: scleral icterus, conjunctival injection ENT exam: Present: normal exam, mucous membranes moist Neck exam: Present: normal inspection, full ROM. Absent: tenderness Respiratory exam: Present: normal lung sounds bilaterally. Absent: respiratory distress, wheezes Cardiovascular Exam: Present: regular rate, normal rhythm, normal heart sounds Extremities exam: Present: full ROM (Full range of motion noted of the right arm.), normal capillary refill (Capillary refill less than 2 seconds, radial pulse 2+.), joint swelling (Patient does have ecchymosis of the right antecubital area and anterior humerus. No increased warmth or redness. No significant swelling.), other (Ecchymosis noted on the anterior aspect of the proximal forearm and distal humerus.) Course Vital Signs 03/15/21 01:14 Temperature 98.4 F Pulse Rate 89 Respiratory 20 Rate Blood Pressure 162/85 O2 Sat by Pulse 96 Oximetry Medical Decision Making - Medical Decision Making Vitals are stable. Patient has a radial pulse of 2+. He does have ecchymosis of the left anterior arm and bicep area. X-ray does not show any obvious fractures. At this time patient likely has injury to the biceps tendon and biceps muscle. He will follow up with orthopedics. He will return for any worsening symptoms. Disposition Clinical Impression: Biceps tendon tear, Ecchymosis Disposition: HOME SELF-CARE Condition: Good Instructions (If sedation given, give patient instructions): Tendon Rupture (ED) Additional Instructions: Please follow up with orthopedics or primary care in 1-2 days. Return to the ER for any worsening symptoms. Is patient prescribed a controlled substance at d/c from ED?: No Referrals: Alli Spear MD [Primary Care Provider] - 1-2 days Yan Doherty DO [Doctor of Osteopathic Medicine] - 1-2 days Time of Disposition: 03:20
--- NOTE | 2021-03-15 03:28 | XR ---
EXAMINATION TYPE: XR elbow complete RT DATE OF EXAM: 03/15/2021 COMPARISON: NONE HISTORY: Elbow pain TECHNIQUE: 3 views FINDINGS: There is no sign of fracture nor dislocation. There is no evidence of joint effusion. Joint spaces appear normal. IMPRESSION: Negative right elbow exam.
== END 2021-03-15 03:33 | disposition home or self-care (01) ==
LOC: EC 01:08
DX: S46.212A Strain of muscle, fascia and tendon of other parts of biceps, left arm, initial encounter (principal); I10 Essential (primary) hypertension; I25.10 Atherosclerotic heart disease of native coronary artery without angina pectoris; Z79.82 Long term (current) use of aspirin; Z79.899 Other long term (current) drug therapy; Z87.891 Personal history of nicotine dependence; Z82.49 Family history of ischemic heart disease and other diseases of the circulatory system; X50.1XXA Overexertion from prolonged static or awkward postures, initial encounter
CPT/HCPCS: 99283

== ENCOUNTER 2022-04-01 19:53 | Emergency (ER) | payer MEDICARE, OTHER ==
[2022-04-01 20:17] VITALS: TEMP 99
[2022-04-01] MEDS ORDERED: SODIUM CHLORIDE 0.9% 1,000 ML IV STA (23:31)
[2022-04-01] MEDS ORDERED: MORPHINE SULFATE 4 MG/ML SYRINGE IV STA (23:32)
[2022-04-01] MEDS ORDERED: ONDANSETRON 4 MG/2 ML VIAL IVP STA (23:32)
--- NOTE | 2022-04-01 23:37 | ED ---
Skin/Abscess/FB HPI - General Chief complaint: Skin/Abscess/Foreign Body Stated complaint: INFECTION IN LEG Time Seen by Provider: 04/01/22 23:26 Source: patient, RN notes reviewed Mode of arrival: wheelchair Limitations: no limitations - History of Present Illness Initial comments: This is a pleasant 66-year-old male with a history of hypertension, coronary artery disease, and sleep apnea. 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 Patient states he occasionally gets irritation to the residual limb. He states he tried to scrape off a callus to the end of the limb. HEENT, some bleeding and believes he may have cause an infection. Patient states the right lower extremity is hot and somewhat painful. States he can actually feel discomfort up into the medial eye area. No definitive fever. No history of MRSA or other recalcitrant skin infections. No headache, no fever or chills, no changes in vision or hearing, no sore throat or difficulty with speech, no neck pain, no chest pain or shortness of breath, no abdominal pain, no nausea or vomiting, no changes in urination or bowel movements, no numbness or tingling, no extremity pain, no skin rashes or lesions. Past medical, surgical, social, and family history reviewed. - Related Data Home Medications Medication Instructions Recorded Confirmed Cholecalciferol [Vitamin D3 (25 2,000 unit PO DAILY 04/01/20 12/18/20 Mcg = 1000 Iu)] HYDROcodone/APAP 7.5-325MG [[place] 1 tab PO TID PRN 04/01/20 12/18/20 7.5-325] [place]-3 Fatty Acids [[place]-3] 1,000 mg PO DAILY 12/18/20 12/18/20 Zinc 50 mg PO DAILY 12/18/20 12/18/20 Previous Rx's Medication Instructions Recorded Aspirin 81 mg PO DAILY chew 12/19/20 Atorvastatin [Lipitor] 80 mg PO HS #30 tab 12/19/20 Furosemide [Lasix] 20 mg PO MOWEFR #30 tab 12/19/20 Metoprolol Tartrate [Lopressor] 25 mg PO BID #60 tab 12/19/20 Nitroglycerin Sl Tabs [Nitrostat] 0.4 mg SUBLINGUAL Q5M PRN #25 tab 12/19/20 Ticagrelor [Brilinta] 90 mg PO BID #60 tab 12/19/20 amLODIPine [Norvasc] 10 mg PO DAILY #90 tablet 12/19/20 lisinopriL [Zestril] 20 mg PO BID #60 tab 12/19/20 HYDROcodone/APAP 5-325MG [[place] 1 tab PO Q6HR PRN 3 Days #12 tab 04/02/22 5-325] Allergies Allergy/AdvReac Type Severity Reaction Status Date / Time No Known Allergies Allergy Verified 04/01/22 20:17 Review of Systems ROS Statement: Those systems with pertinent positive or pertinent negative responses have been documented in the HPI. ROS Other: All systems not noted in ROS Statement are negative. Past Medical History Past Medical History: Coronary Artery Disease (CAD), Hypertension, Myocardial Infarction (HI), Sleep Apnea/CPAP/BIPAP Additional Past Medical History / Comment(s): hypercholestremia History of Any Multi-Drug Resistant Organisms: None Reported Past Surgical History: Heart Catheterization With Stent Additional Past Surgical History / Comment(s): below the knee amputation. 2 fatty tumors removed. Past Anesthesia/Blood Transfusion Reactions: No Reported Reaction Past Psychological History: No Psychological Hx Reported Smoking Status: Former smoker Past Alcohol Use History: Rare Past Drug Use History: None Reported - Past Family History Mother Family Medical History: Cancer (Bladder cancer), Congestive Heart Failure (CHF), Hypertension Father Family Medical History: Cancer, Hypertension Additional Family Medical History / Comment(s): prostate cancer Brother(s) Family Medical History: Congestive Heart Failure (CHF) Sister(s) Family Medical History: Cancer (Uterine cancer) General Exam - General Exam Comments Initial Comments: Vital signs reviewed, patient does not appear to be overtly ill or toxic. Noted to be tachycardic. Limitations: no limitations General appearance: alert, in distress Head exam: Present: atraumatic, normocephalic, normal inspection Eye exam: Present: normal appearance, PERRL, EOMI. Absent: scleral icterus, conjunctival injection, periorbital swelling ENT exam: Present: normal exam, mucous membranes moist Neck exam: Present: normal inspection, full ROM. Absent: tenderness, meningismus, lymphadenopathy Respiratory exam: Present: normal lung sounds bilaterally. Absent: respiratory distress, wheezes, rales, rhonchi, stridor Cardiovascular Exam: Present: normal rhythm, tachycardia, normal heart sounds. Absent: systolic murmur, diastolic murmur, rubs, gallop, clicks GI/Abdominal exam: Present: soft, normal bowel sounds. Absent: distended, tenderness, guarding, rebound, rigid Extremities exam: Present: full ROM, normal capillary refill. Absent: normal inspection (Right BKA with a noted abrasion to the residual limb. Calor is p resent with tenderness of the soft tissues up to and including the medial aspect of the thigh. No definitive palpable cord. No crepitus. Mild if any erythema.), tenderness, pedal edema, joint swelling, calf tenderness Back exam: Present: normal inspection. Absent: rash noted Neurological exam: Present: alert, oriented X3, CN II-XII intact Psychiatric exam: Present: normal affect, normal mood Skin exam: Present: warm, dry, intact, normal color. Absent: rash Course Vital Signs 04/01/22 04/02/22 20:14 02:49 Temperature 99 F 99 F Pulse Rate 118 H 82 Respiratory 20 18 Rate Blood Pressure 152/83 140/87 O2 Sat by Pulse 98 97 Oximetry - Reevaluation(s) Reevaluation #1: 04/02/22 01:54 Patient reevaluated prior to discharge as doing well. Pain is controlled. Hemodynamically stable. Heart rate 84 by auscultation and radial pulse. Medical Decision Making - Medical Decision Making Patient presents with symptomology consistent with cellulitis of the right lower extremity. Patient noted to be tachycardic but did miss his carvedilol dose. Patient is going to take his own home medications here. We'll order pain medication. I'm going to order antibiotics in the form of cefazolin 2 g IV piggyback. Will also order a venous Doppler to ensure there is no blood clot. Patient has no chest pain or shortness of breath. Patient hemodynamically stable at discharge. I did give the patient the option of admission versus discharge. Patient feels well enough to go home and follow- up with his regular physician. Patient states he'll make an appointment in the morning. Patient was told to return to the ER for any signs or symptoms worsen. Told to return immediately if any other problems arise. All questions answered. Treatment plan discussed. Patient in agreement Every effort has been made to ensure accuracy of this dictation. However, due to the limitations of electronic medical records and dictation devices, errors in charting still occur. The case was discussed in detail with ED attending physician. Presentation, findings, treatment plan discussed in detail. Supervising Dr. Quinteros - Lab Data Result diagrams: 04/02/22 00:40 04/02/22 00:40 Lab Results 04/02/22 04/02/22 04/02/22 Range/Units 00:40 00:40 00:40 WBC 14.8 H (3.8-10.6) k/uL RBC 5.19 (4.30-5.90) m/uL Hgb 16.5 (13.0-17.5) gm/dL Hct 46.3 (39.0-53.0) % MCV 89.1 (80.0-100.0) fL MCH 31.7 (25.0-35.0) pg MCHC 35.6 (31.0-37.0) g/dL RDW 13.4 (11.5-15.5) % Plt Count 276 (150-450) k/uL MPV 7.1 Neutrophils % 83 % Lymphocytes % 8 % Monocytes % 6 % Eosinophils % 1 % Basophils % 1 % Neutrophils # 12.3 H (1.3-7.7) k/uL Lymphocytes # 1.2 (1.0-4.8) k/uL Monocytes # 0.9 (0-1.0) k/uL Eosinophils # 0.1 (0-0.7) k/uL Basophils # 0.1 (0-0.2) k/uL Sodium 135 L (137-145) mmol/L Potassium 3.8 (3.5-5.1) mmol/L Chloride 95 L (98-107) mmol/L Carbon Dioxide 25 (22-30) mmol/L Anion Gap 15 mmol/L BUN 12 (9-20) mg/dL Creatinine 1.06 (0.66-1.25) mg/dL Est GFR (CKD-EPI)AfAm 84 (>60 ml/min/1.73 sqM) Est GFR (CKD-EPI)NonAf 73 (>60 ml/min/1.73 sqM) Glucose 112 H (74-99) mg/dL Plasma Lactic Acid P[place] 1.6 (0.7-2.0) mmol/L Calcium 9.2 (8.4-10.2) mg/dL Total Bilirubin 1.4 H (0.2-1.3) mg/dL AST 37 (17-59) U/L ALT 61 H (4-49) U/L Alkaline Phosphatase 161 H (38-126) U/L Total Protein 7.8 (6.3-8.2) g/dL Albumin 4.8 (3.5-5.0) g/dL Disposition Clinical Impression: Cellulitis of right leg without foot Disposition: HOME SELF-CARE Condition: Stable Instructions (If sedation given, give patient instructions): Cellulitis (ED) Additional Instructions: Follow-up with your regular physician as directed. Return to the ER immediately if any symptoms worsen, new symptoms arise, or any other problems develop. Take the antibiotics as directed. Call tomorrow morning to schedule follow-up appointment with your primary physician. Prescriptions: HYDROcodone/APAP 5-325MG [[place] 5-325] 1 tab PO Q6HR PRN 3 Days #12 tab PRN Reason: Pain Is patient prescribed a controlled substance at d/c from ED?: Yes When asked, does pt state using other controlled substances?: No If prescribed controlled substance>3 days was MAPS reviewed?: Prescribed <3 Days If opioid is for acute pain is fill amount 7 days or less?: Yes Referrals: Alli Spear MD [Primary Care Provider] - 1-2 days Time of Disposition: 01:55
--- NOTE | 2022-04-02 00:12 | XR ---
EXAMINATION TYPE: XR Femur RT 1 View DATE OF EXAM: 04/02/2022 COMPARISON: NONE HISTORY: Infection TECHNIQUE: 2 views FINDINGS: The hip joint and knee joint appear intact. I see no fracture nor dislocation. Soft tissues are intact. No evidence of soft tissue air. IMPRESSION: Negative right femur exam
--- NOTE | 2022-04-02 00:14 | XR ---
EXAMINATION TYPE: XR tibia fibula RT DATE OF EXAM: 04/02/2022 COMPARISON: NONE HISTORY: Infection TECHNIQUE: 2 views FINDINGS: There is below-knee amputation at the mid tibia. I see no fracture nor dislocation. No foca l bone destruction. Knee joint spaces are normal. IMPRESSION: Amputation deformity. No fracture. No sign of osteomyelitis.
[2022-04-02 01:02] LABS: Basophils # (A) 0.1 k/uL (0-0.2); Basophils % (A) 1 %; Eosinophils # (A) 0.1 k/uL (0-0.7); Eosinophils % (A) 1 %; HCT 46.3 % (39.0-53.0); HGB 16.5 gm/dL (13.0-17.5); Lymphocytes # (A) 1.2 k/uL (1.0-4.8); Lymphocytes % (A) 8 %; MCH 31.7 pg (25.0-35.0); MCHC 35.6 g/dL (31.0-37.0); MCV 89.1 fL (80.0-100.0); Mean Platelet Volume 7.1; Monocytes # (A) 0.9 k/uL (0-1.0); Monocytes % (A) 6 %; Neutrophils # (A) 12.3 k/uL (1.3-7.7); Neutrophils % (A) 83 %; Platelet Count 276 k/uL (150-450); RBC 5.19 m/uL (4.30-5.90); RDW 13.4 % (11.5-15.5); WBC 14.8 k/uL (3.8-10.6)
[2022-04-02 01:18] LABS: Albumin 4.8 g/dL (3.5-5.0); Calcium 9.2 mg/dL (8.4-10.2); Potassium 3.8 mmol/L (3.5-5.1); Total Bilirubin 1.4 mg/dL (0.2-1.3); Total Protein 7.8 g/dL (6.3-8.2)
--- NOTE | 2022-04-02 01:27 | US ---
EXAMINATION TYPE: US venous doppler duplex LE RT DATE OF EXAM: 04/02/2022 12:03 AM COMPARISON: NONE CLINICAL HISTORY: Right leg pain. Right leg pain SIDE PERFORMED: Right TECHNIQUE: The lower extremity deep venous system is examined utilizing real time linear array sonog mitesh with graded compression, doppler sonography and color-flow sonography. VESSELS IMAGED: Common Femoral Vein Deep Femoral Vein Greater Saphenous Vein * Femoral Vein Popliteal Vein Small Saphenous Vein * Proximal Calf Veins (* superficial vessels) Right Leg: Appears negative for DVT IMPRESSION: No evidence of deep vein thrombosis in the right leg.
[2022-04-02] MEDS ORDERED: ACET/COD 300 MG/30 MG STARTER PACK 6 TAB BTL PO STA (01:48)
[2022-04-02] MEDS ORDERED: CEPHALEXIN 500MG STARTER PACK 4 CAP BTL PO STA (01:48)
[2022-04-02 02:50] VITALS: BP 140/87; PULSE 82; RESP 18
== END 2022-04-02 02:50 | disposition home or self-care (01) ==
LOC: EC 19:53
DX: L03.115 Cellulitis of right lower limb (principal); I25.10 Atherosclerotic heart disease of native coronary artery without angina pectoris; I10 Essential (primary) hypertension; I25.2 Old myocardial infarction; Z87.891 Personal history of nicotine dependence; Z79.82 Long term (current) use of aspirin; Z79.899 Other long term (current) drug therapy
CPT/HCPCS: 36415; 80053; 83605; 85025; 87040; 73551; 73590; 93971; 99284; 96365; 96375 ×2; J2270; J0690; J2405

== ENCOUNTER 2023-09-24 19:31 | Emergency (ER) | payer MEDICARE, OTHER ==
[2023-09-24 19:44] VITALS: TEMP 98.6
--- NOTE | 2023-09-24 19:59 | XR ---
EXAMINATION TYPE: XR chest 2V DATE OF EXAM: 09/24/2023 7:55 PM CLINICAL INDICATION:Male, 68 years old with history of fever, cough. COMPARISON: Chest radiographs from 12/18/2020. TECHNIQUE: XR chest 2V Frontal and lateral views of the chest. FINDINGS: Lungs/Pleura: There is no evidence of pleural effusion, focal consolidation, or pneumothorax. Pulmonary vascularity: Unremarkable. Heart/mediastinum: Cardiomediastinal silhouette is unremarkable. Musculoskeletal: No acute osseous pathology. IMPRESSION: No acute cardiopulmonary disease/process.
--- NOTE | 2023-09-24 20:18 | ED ---
General Adult HPI - General Chief complaint: Upper Respiratory Infection Stated complaint: SOB congestion Time Seen by Provider: 09/24/23 19:46 Source: patient Mode of arrival: ambulatory Limitations: no limitations - History of Present Illness Initial comments: 68-year-old male presenting to the ED with a chief complaint of. Patient reports for the past week and a half has had cough productive with green-yellow sputum, congestion, rhinorrhea. Patient also notes some associated chills and subjective fever with this. Patient states that he wears a CPAP to sleep at night and this dries him out for a few hours however reports that congestion and rhinorrhea progressively return during the day. No chest pain or shortness of breath. Patient is a former smoker. No other complaints at this time. - Related Data Home Medications Medication Instructions Recorded Confirmed Cholecalciferol [Vitamin D3 (25 2,000 unit PO DAILY 04/01/20 12/18/20 Mcg = 1000 Iu)] HYDROcodone/APAP 7.5-325MG [[place] 1 tab PO TID PRN 04/01/20 12/18/20 7.5-325] [place]-3 Fatty Acids [[place]-3] 1,000 mg PO DAILY 12/18/20 12/18/20 Zinc 50 mg PO DAILY 12/18/20 12/18/20 Previous Rx's Medication Instructions Recorded Aspirin 81 mg PO DAILY chew 12/19/20 Atorvastatin [Lipitor] 80 mg PO HS #30 tab 12/19/20 Furosemide [Lasix] 20 mg PO MOWEFR #30 tab 12/19/20 Metoprolol Tartrate [Lopressor] 25 mg PO BID #60 tab 12/19/20 Nitroglycerin Sl Tabs [Nitrostat] 0.4 mg SUBLINGUAL Q5M PRN #25 tab 12/19/20 Ticagrelor [Brilinta] 90 mg PO BID #60 tab 12/19/20 amLODIPine [Norvasc] 10 mg PO DAILY #90 tablet 12/19/20 lisinopriL [Zestril] 20 mg PO BID #60 tab 12/19/20 HYDROcodone/APAP 5-325MG [[place] 1 tab PO Q6HR PRN 3 Days #12 tab 04/02/22 5-325] Albuterol Inhaler [Ventolin Hfa 1 - 2 puff INHALATION Q6H PRN #1 09/24/23 Inhaler] each predniSONE [Deltasone] 60 mg PO DAILY 5 Days #15 tab 09/24/23 Allergies Allergy/AdvReac Type Severity Reaction Status Date / Time No Known Allergies Allergy Verified 09/24/23 19:44 Review of Systems ROS Statement: Those systems with pertinent positive or pertinent negative responses have been documented in the HPI. ROS Other: All systems not noted in ROS Statement are negative. Past Medical History Past Medical History: Coronary Artery Disease (CAD), Hypertension, Myocardial Infarction (MT), Sleep Apnea/CPAP/BIPAP Additional Past Medical History / Comment(s): hypercholestremia History of Any Multi-Drug Resistant Organisms: None Reported Past Surgical History: Heart Catheterization With Stent Additional Past Surgical History / Comment(s): below the knee amputation. 2 fatty tumors removed. Past Anesthesia/Blood Transfusion Reactions: No Reported Reaction Past Psychological History: No Psychological Hx Reported Smoking Status: Former smoker Past Alcohol Use History: Rare Past Drug Use History: Marijuana - Past Family History Mother Family Medical History: Cancer (Bladder cancer), Congestive Heart Failure (CHF), Hypertension Father Family Medical History: Cancer, Hypertension Additional Family Medical History / Comment(s): prostate cancer Brother(s) Family Medical History: Congestive Heart Failure (CHF) Sister(s) Family Medical History: Cancer (Uterine cancer) General Exam Limitations: no limitations General appearance: alert, in no apparent distress Eye exam: Present: normal appearance Neck exam: Present: normal inspection Respiratory exam: Present: other (Coarse breath sounds bilaterally.). Absent: respiratory distress, accessory muscle use Cardiovascular Exam: Present: regular rate GI/Abdominal exam: Present: soft Extremities exam: Absent: pedal edema Neurological exam: Present: alert, oriented X3 Skin exam: Present: warm, dry Course Vital Signs 09/24/23 09/24/23 09/24/23 19:37 21:16 22:07 Temperature 98.6 F Pulse Rate 92 82 75 Respiratory 20 18 Rate Blood Pressure 104/52 117/70 O2 Sat by Pulse 92 L 93 L Oximetry 09/24/23 09/24/23 22:12 22:21 Temperature Pulse Rate 76 Respiratory Rate Blood Pressure O2 Sat by Pulse 95 Oximetry Medical Decision Making - Medical Decision Making Was pt. sent in by a medical professional or institution (, PA, ABRASIVE W[employer] JET CUTTER OPERATOR, urgent care, hospital, or half-way...) When possible be specific @ -No Did you speak to anyone other than the patient for history (EMS, parent, family, police, friend...)? What history was obtained from this source @ -No Did you review nursing and triage notes (agree or disagree)? Why? @ -I reviewed and agree with nursing and triage notes Were old charts reviewed (outside hosp., previous admission, EMS record, old EKG, old radiological studies, urgent care reports/EKG's, half-way records)? Report findings @ -No old charts were reviewed Differential Diagnosis (chest pain, altered mental status, abdominal pain women, abdominal pain men, vaginal bleeding, weakness, fever, dyspnea, syncope, headache, dizziness, GI bleed, back pain, seizure, CVA, palpatations, mental health, musculoskeletal)? @ -Differential Dyspnea: Coronary syndrome, arrhythmia, tamponade, asthma, COPD, pulmonary embolism, pneumonia, pneumothorax, pulmonary effusion, anaphylaxis, diabetic ketoacidosis, flailed chest, pulmonary contusion, diaphragmatic rupture, anemia, neuromuscular, this is not meant to be an all-inclusive list. EKG interpreted by me (3pts min.). @ -None X-rays interpreted by me (1pt min.). @ -Chest x-ray interpreted me which revealed no evidence of acute finding. CT interpreted by me (1pt min.). @ -None done U/S interpreted by me (1pt. min.). @ -None done What testing was considered but not performed or refused? (CT, X-rays, U/S, labs)? Why? @ -None What meds were considered but not given or refused? Why? @ -None Did you discuss the management of the patient with other professionals (professionals i.e. , PA, ABR[employer]IVE W[employer] J[employer] CUTTER OPERATOR, lab, RT, psych nurse, vp digital marketing social media and crm, assistant clinical director, teacher, sales and service officer, sample case porter)? Give summary @ -No Was smoking cessation discussed for >3mins.? @ -No Was critical care preformed (if so, how long)? @ -No Were there social determinants of health that impacted care today? How? ( Homelessness, low income, unemployed, alcoholism, drug addiction, transportation, low edu. Level, literacy, decrease access to med. care, assisted, rehab)? @ -No Was there de-escalation of care discussed even if they declined (Discuss DNR or withdrawal of care, Hospice)? DNR status @ -No What co-morbidities impacted this encounter? (DM, HTN, Smoking, COPD, CAD, Cancer, CVA, ARF, Chemo, Hep., AIDS, mental health diagnosis, sleep apnea, morbid obesity)? @ -Obesity, prior tobacco use Was patient admitted / discharged? Hospital course, mention meds given and route, prescriptions, significant lab abnormalities, going to OR and other pertinent info. @ -Discharge 68-year-old male presenting to the ED with complaints of cough and congestion for the past week and a half. Serology panel unremarkable. Chest x-ray revealed no evidence of pneumonia or other acute process. On exam some wheezing in bilateral lung peoples which showed some improvement after breathing treatment here. Patient provided dose of prednisone here and discharged home with prescriptions for prednisone and albuterol inhaler. Advise close follow-up with his PCP. Discussed return precautions with patient who verbalized agreement. Undiagnosed new problem with uncertain prognosis? @ -No Drug Therapy requiring intensive monitoring for toxicity (Heparin, Nitro, Insulin, Cardizem)? @ -No Were any procedures done? @ -No Diagnosis/symptom? @ -Viral URI Acute, or Chronic, or Acute on Chronic? @ -Acute Uncomplicated (without systemic symptoms) or Complicated (systemic symptoms)? @ -Uncomplicated Side effects of treatment? @ -No Exacerbation, Progression, or Severe Exacerbation? @ -No Poses a threat to life or bodily function? How? (Chest pain, [place], MT, pneumonia, PE, COPD, DKA, ARF, appy, cholecystitis, CVA, Diverticulitis, Homicidal, Suicidal, threat to staff... and all critical care pts) @ -No - Lab Data Lab Results 09/24/23 Range/Units 19:51 Influenza Type A (PCR) Not Detected (Not Detectd) Influenza Type B (PCR) Not Detected (Not Detectd) RSV (PCR) Not Detected (Not Detectd) SARS-CoV-2 (PCR) Not Detected (Not Detectd) Disposition Clinical Impression: Viral URI Disposition: HOME SELF-CARE Condition: Good Additional Instructions: Please return to the Emergency Department if symptoms worsen or any other concerns. Please follow-up with your PCP. Prescriptions: predniSONE [Deltasone] 60 mg PO DAILY 5 Days #15 tab Albuterol Inhaler [Ventolin Hfa Inhaler] 1 - 2 puff INHALATION Q6H PRN #1 each PRN Reason: Dyspnea Is patient prescribed a controlled substance at d/c from ED?: No Referrals: Alli Spear [Primary Care Provider] - 1-2 days Time of Disposition: 22:40
[2023-09-24 21:33] VITALS: RESP 18
[2023-09-24] MEDS: IPRATROPIUM-ALBUTEROL 3 ML NEB INHALATION STA (22:06)
[2023-09-24] MEDS: predniSONE 20 MG TAB PO STA (22:51)
[2023-09-24 23:23] VITALS: BP 142/78; PULSE 86
== END 2023-09-24 22:54 | disposition home or self-care (01) ==
LOC: EC 19:31
DX: J06.9 Acute upper respiratory infection, unspecified (principal); F12.90 Cannabis use, unspecified, uncomplicated; Z87.891 Personal history of nicotine dependence
CPT/HCPCS: 94640; 87636; 71046; 99285; J7512

== ENCOUNTER 2024-09-12 02:10 | Inpatient (IN) | payer MEDICARE, OTHER ==
--- NOTE | 2024-09-12 02:53 | ED ---
General Adult HPI - General Chief complaint: Urogenital Stated complaint: poss uti Time Seen by Provider: 09/12/24 02:30 Source: patient, RN notes reviewed, old records reviewed Mode of arrival: wheelchair Limitations: no limitations - History of Present Illness Initial comments: Patient is a 69-year-old male who presents emergency department complaining of fevers, body aches. Concerned that he may have a UTI. Has been having some burning with urination and some lower back discomfort. It is not severe. Has also noticed a nonproductive cough ongoing for a few days. Denies any known sick contacts. Denies sore throat. Denies chest pain or shortness of breath. Denies nausea or vomiting or diarrhea. Presents for further evaluation. He is concerned he has a UTI. Does have a history of UTIs and states he felt similar. - Related Data Home Medications Medication Instructions Recorded Confirmed Cholecalciferol [Vitamin D3 (25 2,000 unit PO DAILY 04/01/20 12/18/20 Mcg = 1000 Iu)] HYDROcodone/APAP 7.5-325MG [[place] 1 tab PO TID PRN 04/01/20 12/18/20 7.5-325] [place]-3 Fatty Acids [[place]-3] 1,000 mg PO DAILY 12/18/20 12/18/20 Zinc 50 mg PO DAILY 12/18/20 12/18/20 Previous Rx's Medication Instructions Recorded Aspirin 81 mg PO DAILY chew 12/19/20 Atorvastatin [Lipitor] 80 mg PO HS #30 tab 12/19/20 Furosemide [Lasix] 20 mg PO MOWEFR #30 tab 12/19/20 Metoprolol Tartrate [Lopressor] 25 mg PO BID #60 tab 12/19/20 Nitroglycerin Sl Tabs [Nitrostat] 0.4 mg SUBLINGUAL Q5M PRN #25 tab 12/19/20 Ticagrelor [Brilinta] 90 mg PO BID #60 tab 12/19/20 amLODIPine [Norvasc] 10 mg PO DAILY #90 tablet 12/19/20 lisinopriL [Zestril] 20 mg PO BID #60 tab 12/19/20 HYDROcodone/APAP 5-325MG [[place] 1 tab PO Q6HR PRN 3 Days #12 tab 04/02/22 5-325] Albuterol Inhaler [Ventolin Hfa 1 - 2 puff INHALATION Q6H PRN #1 09/24/23 Inhaler] each predniSONE [Deltasone] 60 mg PO DAILY 5 Days #15 tab 09/24/23 Allergies Allergy/AdvReac Type Severity Reaction Status Date / Time No Known Allergies Allergy Verified 09/12/24 02:30 Review of Systems ROS Statement: Those systems with pertinent positive or pertinent negative responses have been documented in the HPI. Review of Systems: CONST: Denies fever EYES: Denies blurry vision ENT: Endorses nasal congestion C/V: Denies Chest pain RESP: Denies shortness of breath GI: Denies abdominal pain : Endorses dysuria SKIN: Denies rash. MSK: Denies joint pain. NEURO: Denies headache ROS Other: All systems not noted in ROS Statement are negative. Past Medical History Past Medical History: Coronary Artery Disease (CAD), Hypertension, Myocardial Infarction ([place]), Sleep Apnea/CPAP/BIPAP Additional Past Medical History / Comment(s): hypercholestremia History of Any Multi-Drug Resistant Organisms: None Reported Past Surgical History: Heart Catheterization With Stent Additional Past Surgical History / Comment(s): below the knee amputation. 2 fatty tumors removed. Past Anesthesia/Blood Transfusion Reactions: No Reported Reaction Past Psychological History: No Psychological Hx Reported Smoking Status: Former smoker Past Alcohol Use History: Rare Past Drug Use History: Marijuana - Past Family History Mother Family Medical History: Cancer (Bladder cancer), Congestive Heart Failure (CHF), Hypertension Father Family Medical History: Cancer, Hypertension Additional Family Medical History / Comment(s): prostate cancer Brother(s) Family Medical History: Congestive Heart Failure (CHF) Sister(s) Family Medical History: Cancer (Uterine cancer) General Exam - General Exam Comments Initial Comments: General: Appears in no acute distress. HEAD: Normal with no signs of head trauma. EYES: EOMI ENT: Hearing grossly intact, normal oropharynx. RESPIRATORY: Clear breath sounds bilaterally. No wheezes, rales, or rhonchi. No hypoxia. C/V: Regular rate and rhythm. S1 and S2 auscultated, no edema, peripheral pulses 2+ and intact throughout ABD: Mild suprapubic abdominal discomfort on palpation. No guarding or rebound tenderness. No peritoneal signs. EXT: No obvious deformity SKIN: No rashes or lesions observed on exposed skin. NEURO: Alert and oriented x 4 Limitations: no limitations Course Vital Signs 09/12/24 09/12/24 09/12/24 02:26 04:05 05:18 Temperature 103 F H 102.6 F H Pulse Rate 132 H 108 H Respiratory 20 16 Rate Blood Pressure 114/72 112/65 O2 Sat by Pulse 96 93 L Oximetry Medical Decision Making - Medical Decision Making Was pt. sent in by a medical professional or institution (, [facility], [employer], urgent care, hospital, or custodial...) When possible be specific @ -No Did you speak to anyone other than the patient for history (EMS, parent, family, police, friend...)? What history was obtained from this source @ -No Did you review nursing and triage notes (agree or disagree)? Why? @ -I reviewed and agree with nursing and triage notes Were old charts reviewed (outside hosp., previous admission, EMS record, old EKG, old radiological studies, urgent care reports/EKG's, custodial records)? Report findings @ -No old charts were reviewed Differential Diagnosis (chest pain, altered mental status, abdominal pain women, abdominal pain men, vaginal bleeding, weakness, fever, dyspnea, syncope, headache, dizziness, GI bleed, back pain, seizure, CVA, palpatations, mental health, musculoskeletal)? @ -UTI, viral syndrome, COVID, flu, pneumonia. This list is not all inclusive. EKG interpreted by me (3pts min.). @ -As above X-rays interpreted by me (1pt min.). @ -Chest x-ray reveals no obvious acute cardiopulmonary process. CT interpreted by me (1pt min.). @ -None done U/S interpreted by me (1pt. min.). @ -None done What testing was considered but not performed or refused? (CT, X-rays, U/S, labs)? Why? @ -None What meds were considered but not given or refused? Why? @ -None Did you discuss the management of the patient with other professionals (professionals i.e. ELROY Lagunas, [employer]E COMBINER, lab, RT, psych nurse, geriatric social work professor, audiovisual lead technician, teacher, payroll officer, watch caser)? Give summary @ -I spoke with the admitting provider, Dr. Sinha who accepted the admission. Was smoking cessation discussed for >3mins.? @ -No Was critical care preformed (if so, how long)? @ -yes, 31 minutes Were there social determinants of health that impacted care today? How? (Homelessness, low income, unemployed, alcoholism, drug addiction, transpor tation, low edu. Level, literacy, decrease access to med. care, group home, rehab)? @ -No Was there de-escalation of care discussed even if they declined (Discuss DNR or withdrawal of care, Hospice)? DNR status @ -No What co-morbidities impacted this encounter? (DM, HTN, Smoking, COPD, CAD, Cancer, CVA, ARF, Chemo, Hep., AIDS, mental health diagnosis, sleep apnea, morbid obesity)? @ -None Was patient admitted / discharged? Hospital course, mention meds given and route, prescriptions, significant lab abnormalities, going to OR and other pertinent info. @ -Patient presents emergency department complaining of fever with urinary complaints as well as a cough. Concern for UTI or possible URI. We will obtain chest x-ray, basic labs, as well as urinalysis. Viral swabs will be obtained. Patient is febrile with tachycardia, tachycardia likely secondary to the fever. Patient be treat with Tylenol and Motrin and 1 L fluid bolus. He was in agreement this plan. Chest x-ray returns unremarkable. Laboratory studies remarkable for leukocytosis of 17.4, a mild ANKITA with a creatinine of 1.54, as well as a positive urine for UTI. I updated the patient. His patient technically does meet sepsis criteria at 0400, patient will be admitted to the hospital.Patient has multiple SIRS criteria. Started on broad-spectrum vancomycin as well as cefepime. Blood culture obtained and sent. Urine culture sent. Vital signs are improving his temperature is improving. He was in agreement this plan. Patient was not given 30 cc/kg fluid bolus as he does have a history of CHF. He is hemodynamically s table and we will continue to monitor and apply fluids as needed. Patient was in agreement this plan. I spoke with the admitting provider, Dr. Sinha who accepted the admission. Undiagnosed new problem with uncertain prognosis? @ -No Drug Therapy requiring intensive monitoring for toxicity (Heparin, Nitro, Insulin, Cardizem)? @ -No Were any procedures done? @ -No Diagnosis/symptom? @ -UTI, sepsis Acute, or Chronic, or Acute on Chronic? @ -Acute Uncomplicated (without systemic symptoms) or Complicated (systemic symptoms)? @ -Complicated Side effects of treatment? @ -None Exacerbation, Progression, or Severe Exacerbation] @ -No Poses a threat to life or bodily function? @ -Yes - Lab Data Result diagrams: 09/12/24 02:50 09/12/24 02:50 Lab Results 09/12/24 09/12/24 09/12/24 Range/Units 02:50 02:50 02:50 WBC 17.4 H (3.8-10.6) k/uL RBC 5.19 (4.30-5.90) m/uL Hgb 15.3 (13.0-17.5) gm/dL Hct 46.8 (39.0-53.0) % MCV 90.3 (80.0-100.0) fL MCH 29.4 (25.0-35.0) pg MCHC 32.6 (31.0-37.0) g/dL RDW 13.8 (11.5-15.5) % Plt Count 331 (150-450) k/uL MPV 7.2 Neutrophils % 94 % Lymphocytes % 3 % Monocytes % 2 % Eosinophils % 1 % Basophils % 0 % Neutrophils # 16.4 H (1.3-7.7) k/uL Lymphocytes # 0.5 L (1.0-4.8) k/uL Monocytes # 0.4 (0-1.0) k/uL Eosinophils # 0.1 (0-0.7) k/uL Basophils # 0.0 (0-0.2) k/uL Sodium 135 L (137-145) mmol/L Potassium 3.5 (3.5-5.1) mmol/L Chloride 99 (98-107) mmol/L Carbon Dioxide 24 (22-30) mmol/L Anion Gap 12 mmol/L BUN 20 (9-20) mg/dL Creatinine 1.54 H (0.66-1.25) mg/dL Est GFR (CKD-EPI)AfAm 52 (>60 ml/min/1.73 sqM) Est GFR (CKD-EPI)NonAf 45 (>60 ml/min/1.73 sqM) Glucose 126 H (74-99) mg/dL Calcium 10.1 (8.4-10.2) mg/dL Total Bilirubin 1.0 (0.2-1.3) mg/dL AST 31 (17-59) U/L ALT 46 (4-49) U/L Alkaline Phosphatase 145 H (38-126) U/L Total Protein 7.0 (6.3-8.2) g/dL Albumin 4.4 (3.5-5.0) g/dL Urine Color Light Yellow Urine Appearance Clear (Clear) Urine pH 6.0 (5.0-8.0) Ur Specific [place] 1.014 (1.001-1.035) Urine Protein Negative (Negative) Urine Glucose (UA) Negative (Negative) Urine Ketones Trace H (Negative) Urine Blood Negative (Negative) Urine Nitrite Negative (Negative) Urine Bilirubin Negative (Negative) Urine Urobilinogen <2.0 (<2.0) mg/dL Ur Leukocyte Esterase Large H (Negative) Urine RBC 2 (0-5) /hpf Urine WBC 109 H (0-5) /hpf Urine WBC Clumps Rare H (None) /hpf Urine Bacteria Rare H (None) /hpf Hyaline Casts 1 (0-2) /lpf Influenza Type A (PCR) (Not Detectd) Influenza Type B (PCR) (Not Detectd) RSV (PCR) (Not Detectd) SARS-CoV-2 (PCR) (Not Detectd) 09/12/24 Range/Units 02:50 WBC (3.8-10.6) k/uL RBC (4.30-5.90) m/uL Hgb (13.0-17.5) gm/dL Hct (39.0-53.0) % MCV (80.0-100.0) fL MCH (25.0-35.0) pg MCHC (31.0-37.0) g/dL RDW (11.5-15.5) % Plt Count (150-450) k/uL MPV Neutrophils % % Lymphocytes % % Monocytes % % Eosinophils % % Basophils % % Neutrophils # (1.3-7.7) k/uL Lymphocytes # (1.0-4.8) k/uL Monocytes # (0-1.0) k/uL Eosinophils # (0-0.7) k/uL Basophils # (0-0.2) k/uL Sodium (137-145) mmol/L Potassium (3.5-5.1) mmol/L Chloride (98-107) mmol/L Carbon Dioxide (22-30) mmol/L Anion Gap mmol/L BUN (9-20) mg/dL Creatinine (0.66-1.25) mg/dL Est GFR (CKD-EPI)AfAm (>60 ml/min/1.73 sqM) Est GFR (CKD-EPI)NonAf (>60 ml/min/1.73 sqM) Glucose (74-99) mg/dL Calcium (8.4-10.2) mg/dL Total Bilirubin (0.2-1.3) mg/dL AST (17-59) U/L ALT (4-49) U/L Alkaline Phosphatase (38-126) U/L Total Protein (6.3-8.2) g/dL Albumin (3.5-5.0) g/dL Urine Color Urine Appearance (Clear) Urine pH (5.0-8.0) Ur Specific [place] (1.001-1.035) Urine Protein (Negative) Urine Glucose (UA) (Negative) Urine Ketones (Negative) Urine Blood (Negative) Urine Nitrite (Negative) Urine Bilirubin (Negative) Urine Urobilinogen (<2.0) mg/dL Ur Leukocyte Esterase (Negative) Urine RBC (0-5) /hpf Urine WBC (0-5) /hpf Urine WBC Clumps (None) /hpf Urine Bacteria (None) /hpf Hyaline Casts (0-2) /lpf Influenza Type A (PCR) Not Detected (Not Detectd) Influenza Type B (PCR) Not Detected (Not Detectd) RSV (PCR) Not Detected (Not Detectd) SARS-CoV-2 (PCR) Not Detected (Not Detectd) - EKG Data -: EKG Interpreted by Me EKG Comments: 12-lead Electrocardiogram Interpretation Note EKG was reviewed and interpreted by myself. 12-lead ECG performed at 0302 is interpreted by me as revealing sinus tachycardia at a rate of 127 beats per minute. Rupert is normal. NH interval is 169 ms, QRS duration is 96 ms, QTc is 468 ms.. There were no ST or T wave abnormalities to suggest myocardial ischemia or injury. R wave progression across the precordium was satisfactory. By my interpretation this EKG is non-diagnostic for acute ischemia. Critical Care Time Critical Care Time: Yes Total Critical Care Time: 31 Disposition Clinical Impression: UTI (urinary tract infection), Sepsis Disposition: ADMITTED IP TO THIS HOSP Condition: Serious Time of Disposition: 04:07
[2024-09-12] MEDS: IBUPROFEN 800 MG TAB PO STA (02:58)
[2024-09-12] MEDS: ACETAMINOPHEN TAB 500 MG TAB PO STA (02:58)
[2024-09-12] MEDS: SODIUM CHLORIDE 0.9% 1,000 ML IV ONE (03:00)
[2024-09-12 03:23] LABS: ALT 46 U/L (4-49); AST 31 U/L (17-59); African American GFR (CKD) 52 (>60 ml/min/1.73 sqM); Albumin 4.4 g/dL (3.5-5.0); Alkaline Phosphatase 145 U/L (38-126); Anion Gap 12 mmol/L; Blood Urea Nitrogen 20 mg/dL (9-20); Calcium 10.1 mg/dL (8.4-10.2); Carbon Dioxide 24 mmol/L (22-30); Chloride 99 mmol/L (98-107); Glucose 126 mg/dL (74-99); Non-African American GFR(CKD) 45 (>60 ml/min/1.73 sqM); Potassium 3.5 mmol/L (3.5-5.1); Sodium 135 mmol/L (137-145)
[2024-09-12 03:29] LABS: Basophils % (A) 0 %; Eosinophils # (A) 0.1 k/uL (0-0.7); Eosinophils % (A) 1 %; HCT 46.8 % (39.0-53.0); HGB 15.3 gm/dL (13.0-17.5); Lymphocytes # (A) 0.5 k/uL (1.0-4.8); Lymphocytes % (A) 3 %; MCH 29.4 pg (25.0-35.0); MCHC 32.6 g/dL (31.0-37.0); MCV 90.3 fL (80.0-100.0); Mean Platelet Volume 7.2; Monocytes # (A) 0.4 k/uL (0-1.0); Monocytes % (A) 2 %; Neutrophils # (A) 16.4 k/uL (1.3-7.7); Neutrophils % (A) 94 %; Platelet Count 331 k/uL (150-450); RBC 5.19 m/uL (4.30-5.90); RDW 13.8 % (11.5-15.5); WBC 17.4 k/uL (3.8-10.6)
[2024-09-12 03:36] LABS: Appearance,Urine Clear (Clear); Bacteria,Urine Rare /hpf; Bilirubin,Urine Negative (Negative); Blood,Urine Negative (Negative); Color,Urine Light Yellow; Glucose,Urine (UA) Negative (Negative); Hyaline Casts,Urine 1 /lpf (0-2); Ketones,Urine Trace (Negative); Leukocyte Esterase,Urine Large (Negative); Nitrite,Urine Negative (Negative); Protein,Urine Negative (Negative); RBC,Urine 2 /hpf (0-5); Specific Gravity,Urine 1.014 (1.001-1.035); Urobilinogen,Urine <2.0 mg/dL (<2.0); WBC,Urine 109 /hpf (0-5)
[2024-09-12 03:43] LABS: Influenza A Not Detected (Not Detectd); Influenza B Not Detected (Not Detectd); RSV Not Detected (Not Detectd)
[2024-09-12] MEDS ORDERED: NALOXONE 0.4 MG/ML 1 ML VIAL IV PRN (04:04)
[2024-09-12] MEDS ORDERED: VANCOMYCIN IV PER PHARMACY 1 EACH MISC MISCELLANE PRN (04:06)
--- NOTE | 2024-09-12 04:10 | XR ---
EXAM: XR Chest, 2 Views CLINICAL HISTORY: ITS.REASON XR Reason: cough TECHNIQUE: Frontal and lateral views of the chest. COMPARISON: No relevant prior studies available. FINDINGS: Lungs: No consolidation or mass. Pleural space: No effusion. Heart: Mild cardiomegaly. Bones/joints: No acute findings. IMPRESSION: No acute cardiopulmonary process.
[2024-09-12] MEDS: SODIUM CHLORIDE 0.9% 1,000 ML IV STA (05:14)
[2024-09-12] MEDS: VANCOMYCIN 1,000 MG in SODIUM CHLORIDE 0.9% 250 ML IVPB ONE (05:15)
[2024-09-12] MEDS ORDERED: HEPARIN SODIUM,PORCINE 5,000 UNIT/ML 1 ML VIAL SQ SCH (08:00)
--- NOTE | 2024-09-12 08:19 | P.HPIM ---
History of Present Illness H&P Date: 09/12/24 History of present illness; patient is a 69-year-old gentleman with past medical history significant for hypertension, hyperlipidemia who presented to the ER because of fevers and bodyaches. Patient stated that he has been having burning with urination for the last few days. Patient also complained of lower back pain. Patient also endorsing that he was having fevers with chills. Patient also complaining of bodyaches. Patient denies any chest pain. There is no complaint of shortness of breath. Patient complaining of nonproductive cough. Because of the symptoms, patient brought in the ER Initial lab work done in the ER showed WBC 17.4, hemoglobin 15.3, platelet count 331, sodium 135, potassium 3.5, chloride 99, carbon is a 24, BUN 20, creatinine 0.54, lactate 2.1 alk phos 145 UA done showed large amount of leukocyte Estrace, urine WBC 109 Influenza A not detected Influenza B not detected RSV not detected COVID-19 not detected EKG done in the ER showed heart rate of 127, no ST segment elevation or depression seen, no T-wave inversions seen. Chest x-ray done in the ER showed no acute cardiopulmonary process Patient admitted to internal medicine service REVIEW OF SYSTEMS: CONSTITUTIONAL: As mentioned above HEENT: No recent visual problems or hearing problems. Denied any sore throat. CARDIOVASCULAR: No chest pain, orthopnea, PND, no palpitations, no syncope. PULMONARY: No shortness of breath, no cough, no hemoptysis. GASTROINTESTINAL: No diarrhea, no nausea, no vomiting, no abdominal pain. NEUROLOGICAL: No headaches, no weakness, no numbness. HEMATOLOGICAL: Denies any bleeding or petechiae. GENITOURINARY: As mentioned above MUSCULOSKELETAL/RHEUMATOLOGICAL: Denies any joint pain, swelling, or any muscle pain. ENDOCRINE: Denies any polyuria or polydipsia. The rest of the 14-point review of systems is negative. PHYSICAL EXAMINATION: GENERAL: The patient is alert and oriented x3, not in any acute distress. Well developed, well nourished. HEENT: Pupils are round and equally reacting to light. EOMI. No scleral icterus. No conjunctival pallor. Normocephalic, atraumatic. No pharyngeal erythema. No thyromegaly. CARDIOVASCULAR: S1 and S2 present. No murmurs, rubs, or gallops. PULMONARY: Chest is clear to auscultation, no wheezing or crackles. ABDOMEN: Soft, nontender, nondistended, normoactive bowel sounds. No palpable organomegaly. MUSCULOSKELETAL: No joint swelling or deformity. EXTREMITIES: No cyanosis, clubbing, or pedal edema. NEUROLOGICAL: Gross neurological examination did not reveal any focal deficits. SKIN: No rashes. Assessment and plan Acute pyelonephritis Sepsis Hypertension Hyperlipidemia History of coronary artery disease Monitor vital signs Monitor CBC Monitor CMP Continue telemetry monitoring Blood cultures Ordered urine cultures Order ultrasound of kidneys Start cefepime Resume home med Consult ID Labs and medication were reviewed.. Continue same treatment. Continue with symptomatic treatment. Resume home medication. Monitor labs and vitals. DVT and GI prophylaxis. Further recommendations as per clinical course of the patient Dictation was produced using [employer] dictation software. please excuse any gra mmatical, word or spelling errors. Past Medical History Past Medical History: Coronary Artery Disease (CAD), Hypertension, Myocardial Infarction ([place]), Sleep Apnea/CPAP/BIPAP Additional Past Medical History / Comment(s): hypercholestremia History of Any Multi-Drug Resistant Organisms: None Reported Past Surgical History: Heart Catheterization With Stent Additional Past Surgical History / Comment(s): below the knee amputation. 2 fatty tumors removed. Past Anesthesia/Blood Transfusion Reactions: No Reported Reaction Past Psychological History: No Psychological Hx Reported Smoking Status: Former smoker Past Alcohol Use History: Rare Past Drug Use History: Marijuana - Past Family History Mother Family Medical History: Cancer (Bladder cancer), Congestive Heart Failure (CHF), Hypertension Father Family Medical History: Cancer, Hypertension Additional Family Medical History / Comment(s): prostate cancer Brother(s) Family Medical History: Congestive Heart Failure (CHF) Sister(s) Family Medical History: Cancer (Uterine cancer) Medications and Allergies Home Medications Medication Instructions Recorded Confirmed Type Cholecalciferol [Vitamin D3 (25 2,000 unit PO DAILY 04/01/20 12/18/20 History Mcg = 1000 Iu)] HYDROcodone/APAP 7.5-325MG [[place] 1 tab PO TID PRN 04/01/20 12/18/20 History 7.5-325] Levasy-3 Fatty Acids [Levasy-3] 1,000 mg PO DAILY 07/05/21 07/05/21 History Zinc 50 mg PO DAILY 12/18/20 12/18/20 History Aspirin 81 mg PO DAILY chew 12/19/20 Rx Atorvastatin [Lipitor] 80 mg PO HS #30 tab 12/19/20 Rx Furosemide [Lasix] 20 mg PO MOWEFR #30 tab 12/19/20 Rx Metoprolol Tartrate [Lopressor] 25 mg PO BID #60 tab 12/19/20 Rx Nitroglycerin Sl Tabs [Nitrostat] 0.4 mg SUBLINGUAL Q5M PRN #25 tab 12/19/20 Rx Ticagrelor [Brilinta] 90 mg PO BID #60 tab 12/19/20 Rx amLODIPine [Norvasc] 10 mg PO DAILY #90 tablet 12/19/20 Rx lisinopriL [Zestril] 20 mg PO BID #60 tab 12/19/20 Rx HYDROcodone/APAP 5-325MG [[place] 1 tab PO Q6HR PRN 3 Days #12 tab 04/02/22 Rx 5-325] Albuterol Inhaler [Ventolin Hfa 1 - 2 puff INHALATION Q6H PRN #1 09/24/23 Rx Inhaler] each predniSONE [Deltasone] 60 mg PO DAILY 5 Days #15 tab 09/24/23 Rx Allergies Allergy/AdvReac Type Severity Reaction Status Date / Time No Known Allergies Allergy Verified 09/12/24 02:30 Physical Exam Vitals: Vital Signs Temp Pulse Resp BP Pulse Ox 09/12/24 06:46 99.3 F 98 09/12/24 05:18 108 H 16 112/65 93 L 09/12/24 04:05 102.6 F H 09/12/24 02:26 103 F H 132 H 20 114/72 96 Intake and Output 09/11/24 09/12/24 09/12/24 22:59 06:59 14:59 Other: Weight 61.235 kg Results CBC & Chem 7: 09/12/24 02:50 09/12/24 02:50 Labs: Abnormal Lab Results - Last 24 Hours (Table) 09/12/24 09/12/24 09/12/24 Range/Units 02:50 02:50 02:50 WBC 17.4 H (3.8-10.6) k/uL Neutrophils # 16.4 H (1.3-7.7) k/uL Lymphocytes # 0.5 L (1.0-4.8) k/uL Sodium 135 L (137-145) mmol/L Creatinine 1.54 H (0.66-1.25) mg/dL Glucose 126 H (74-99) mg/dL Plasma Lactic Acid [place] (0.7-2.0) mmol/L Alkaline Phosphatase 145 H (38-126) U/L Urine Ketones Trace H (Negative) Ur Leukocyte Esterase Large H (Negative) Urine WBC 109 H (0-5) /hpf Urine WBC Clumps Rare H (None) /hpf Urine Bacteria Rare H (None) /hpf 09/12/24 Range/Units 04:18 WBC (3.8-10.6) k/uL Neutrophils # (1.3-7.7) k/uL Lymphocytes # (1.0-4.8) k/uL Sodium (137-145) mmol/L Creatinine (0.66-1.25) mg/dL Glucose (74-99) mg/dL Plasma Lactic Acid [place] 2.1 H* (0.7-2.0) mmol/L Alkaline Phosphatase (38-126) U/L Urine Ketones (Negative) Ur Leukocyte Esterase (Negative) Urine WBC (0-5) /hpf Urine WBC Clumps (None) /hpf Urine Bacteria (None) /hpf
--- NOTE | 2024-09-12 09:31 | US ---
EXAMINATION TYPE: US kidneys/renal and bladder DATE OF EXAM: 09/12/2024 COMPARISON: CT CLINICAL INDICATION: Male, 69 years old with history of Ankita; ANKITA TECHNIQUE: Grayscale imaging of the bilateral kidneys and urinary bladder: FINDINGS: EXAM MEASUREMENTS: Right Kidney: 11.2 x 4.5 x 5.0 cm Left Kidney: 10.5 x 5.6 x 5.3 cm Right Kidney: No evidence of hydro Left Kidney: No evidence of hydro, lower pole gassed out Bladder: wnl Bilateral Jets seen: No There is no evidence for hydronephrosis at this point in time. No nephrolithiasis is seen. No corry s are identified. The urinary bladder is anechoic. IMPRESSION: No significant abnormality seen in the kidneys or urinary bladder. [facility], Workstation: [email or web address] 09/12/2024 9:29 AM
[2024-09-12] MEDS: CEFEPIME 2 GM in SODIUM CHLORIDE 0.9% 100 ML IVPB SCH (09:51)
--- NOTE | 2024-09-12 13:40 | P.CONS ---
History of Present Illness - Reason for Consult Consult date: 09/12/24 Sepsis, UTI Requesting physician: Gopi Calzada - Chief Complaint Fever rigors and chills x 1 day - History of Present Illness Patient is a 69-year-old male with a past medical history significant for hypertension [place] sleep apnea coronary artery disease, did have some symptoms of urine outflow obstruction and some cloudy urine in March 2024 the patient mention he was using some herbal medication started having a problem with rigors and chills and bodyaches the day of presentation to the hospital also complaining of pain to bilateral flank area pain to the flank is mostly dull aching moderate intense without radiation with associated cloudy urine with no hematuria patient denies having any significant headache or URI symptoms no chest pain shortness with or cough some nausea but no vomiting. On presentation to hospital patient was febrile with a pressure of 103 F patient was tachycardic but not hypotensive or hypoxic and no need for supplemental oxygen patient did have a elevated lactic acid with a white count 17.4 creatinine is 1.54 CRP 4.9 urine is positive influenza RSV COVID testing has been negative patient did have a abdominal bladder ultrasound no significant prominence seen in the kidneys or bladder patient was started on cefepime and vancomycin infectious disease was consulted for further management of antibiotic therapy Review of Systems Positive point and negatives has been mentioned in the HPI, complete review of systems was performed and all other systems are negative Past Medical History Past Medical History: Coronary Artery Disease (CAD), Hypertension, Myocardial Infarction ([place]), Sleep Apnea/CPAP/BIPAP Additional Past Medical History / Comment(s): hypercholestremia History of Any Multi-Drug Resistant Organisms: None Reported Past Surgical History: Heart Catheterization With Stent Additional Past Surgical History / Comment(s): below the knee amputation. 2 fatty tumors removed. Past Anesthesia/Blood Transfusion Reactions: No Reported Reaction Past Psychological History: No Psychological Hx Reported Smoking Status: Former smoker Past Alcohol Use History: Rare Past Drug Use History: Marijuana - Past Family History Mother Family Medical History: Cancer (Bladder cancer), Congestive Heart Failure (CHF), Hypertension Father Family Medical History: Cancer, Hypertension Additional Family Medical History / Comment(s): prostate cancer Brother(s) Family Medical History: Congestive Heart Failure (CHF) Sister(s) Family Medical History: Cancer (Uterine cancer) Medications and Allergies Home Medications Medication Instructions Recorded Confirmed Type Cholecalciferol [Vitamin D3 (25 50 mcg PO DAILY@1100 04/01/20 09/12/24 History Mcg = 1000 Iu)] Zinc 50 mg PO DAILY@1100 12/18/20 09/12/24 History Aspirin EC [Ecotrin Low Dose] 81 mg PO BID@1100,2300 09/12/24 09/12/24 History Atorvastatin [Lipitor] 80 mg PO HS@2300 09/12/24 09/12/24 History Beet Root Powder 1 dose PO DAILY@109909/12/24 09/12/24 History Magnesium(Unknown Dose) 1 tab PO HS@2300 09/12/24 09/12/24 History NIFEdipine XL [Procardia XL] 60 mg PO DAILY@1100 09/12/24 09/12/24 History Valsartan 320 mg PO HS@2300 09/12/24 09/12/24 History carvediloL [Coreg] 3.125 mg PO BID@1100,2300 09/12/24 09/12/24 History hydroCHLOROthiazide [Hydrodiuril] 25 mg PO DAILY@1100 09/12/24 09/12/24 History Allergies Allergy/AdvReac Type Severity Reaction Status Date / Time No Known Allergies Allergy Verified 09/12/24 10:49 Physical Exam Vitals: Vital Signs Temp Pulse Pulse Resp BP BP Pulse Ox 09/12/24 09:54 98.5 F 82 16 112/65 97 09/12/24 06:46 99.3 F 98 09/12/24 05:18 108 H 16 112/65 93 L 09/12/24 04:05 102.6 F H 09/12/24 02:26 103 F H 132 H 20 114/72 96 Intake and Output 09/11/24 09/12/24 09/12/24 22:59 06:59 14:59 Other: Weight 61.235 kg GENERAL DESCRIPTION: Elderly male up in the chair, no distress. No tachypnea or accessory muscle of respiration use. HEENT: Shows Pallor , no scleral icterus. Oral mucous membrane is dry. NECK: Trachea central, no thyromegaly. LUNGS: Unlabored breathing. Clear to auscultation anteriorly. No wheeze or crackle. HEART: S1, S2, regular rate and rhythm. No loud murmur ABDOMEN: Soft, no tenderness , guarding or rigidity, no organomegaly EXTREMITIES: No edema of feet. SKIN: No rash, no masses palpable. NEUROLOGICAL: The patient is awake, alert, oriented x3, mood and affect normal. Results CBC & Chem 7: 09/12/24 02:50 09/12/24 02:50 Labs: Abnormal Lab Results - Last 24 Hours (Table) 09/12/24 09/12/24 09/12/24 Range/Units 02:50 02:50 02:50 WBC 17.4 H (3.8-10.6) k/uL Neutrophils # 16.4 H (1.3-7.7) k/uL Lymphocytes # 0.5 L (1.0-4.8) k/uL Sodium 135 L (137-145) mmol/L Creatinine 1.54 H (0.66-1.25) mg/dL Glucose 126 H (74-99) mg/dL Plasma Lactic Acid Ponce (0.7-2.0) mmol/L Alkaline Phosphatase 145 H (38-126) U/L C-Reactive Protein (<1.0) mg/dL Urine Ketones Trace H (Negative) Ur Leukocyte Esterase Large H (Negative) Urine WBC 109 H (0-5) /hpf Urine WBC Clumps Rare H (None) /hpf Urine Bacteria Rare H (None) /hpf 09/12/24 09/12/24 09/12/24 Range/Units 04:18 08:04 09:29 WBC (3.8-10.6) k/uL Neutrophils # (1.3-7.7) k/uL Lymphocytes # (1.0-4.8) k/uL Sodium (137-145) mmol/L Creatinine (0.66-1.25) mg/dL Glucose (74-99) mg/dL Plasma Lactic Acid Ponce 2.1 H* 2.7 H* (0.7-2.0) mmol/L Alkaline Phosphatase (38-126) U/L C-Reactive Protein 4.9 H (<1.0) mg/dL Urine Ketones (Negative) Ur Leukocyte Esterase (Negative) Urine WBC (0-5) /hpf Urine WBC Clumps (None) /hpf Urine Bacteria (None) /hpf Assessment and Plan (1) Sepsis Current Visit: Yes Status: Acute Code(s): A41.9 - SEPSIS, UNSPECIFIED ORGANISM SNOMED Code(s): 80591330 (2) UTI (urinary tract infection) Current Visit: Yes Status: Acute Code(s): N39.0 - URINARY TRACT INFECTION, SITE NOT SPECIFIED SNOMED Code(s): 86413319 Plan: 1patient was in the hospital with sepsis in this patient noted to have fever tachycardia elevated white count, elevated lactic acid meeting criteria for SIRS source is urinary in this patient who did have a urinary symptom concerning for possible Pyelonephritis ultrasound was negative for any hydronephrosis or stone. 2patient with mild elevated creatinine high risk of nephrotoxicity from vancomycin which will be discontinued. 3will discontinue cefepime start the patient Rocephin 2 g daily while waiting for the culture to finalize. We will follow on clinical condition and cultures to further adjust medication if needed Thank you for this consultation we will follow the patient along with you Dictation was produced using [employer] dictation software. please excuse any grammatical, word or spelling errors. Time with Patient: Greater than 30
[2024-09-12] MEDS: ONDANSETRON 4 MG/2 ML VIAL IVP PRN (13:54)
[2024-09-13 04:21] LABS: Basophils # (A) 0.1 k/uL (0-0.2); Basophils % (A) 0 %; Eosinophils # (A) 0.2 k/uL (0-0.7); Eosinophils % (A) 1 %; HGB 13.7 gm/dL (13.0-17.5); Lymphocytes # (A) 0.9 k/uL (1.0-4.8); Lymphocytes % (A) 3 %; MCH 29.7 pg (25.0-35.0); MCHC 33.3 g/dL (31.0-37.0); MCV 89.2 fL (80.0-100.0); Monocytes # (A) 1.1 k/uL (0-1.0); Monocytes % (A) 4 %; Neutrophils # (A) 26.1 k/uL (1.3-7.7); Neutrophils % (A) 91 %; Platelet Count 266 k/uL (150-450); RDW 13.5 % (11.5-15.5); WBC 28.6 k/uL (3.8-10.6)
[2024-09-13 04:34] LABS: ALT 32 U/L (4-49); African American GFR (CKD) 85 (>60 ml/min/1.73 sqM); Albumin 3.4 g/dL (3.5-5.0); Albumin/Globulin Ratio 1.3; Anion Gap 9 mmol/L; Blood Urea Nitrogen 19 mg/dL (9-20); Calcium 8.7 mg/dL (8.4-10.2); Carbon Dioxide 21 mmol/L (22-30); Chloride 100 mmol/L (98-107); Globulin 2.6 g/dL; Glucose 95 mg/dL (74-99); Non-African American GFR(CKD) 74 (>60 ml/min/1.73 sqM); Sodium 130 mmol/L (137-145); Total Bilirubin 1.3 mg/dL (0.2-1.3)
[2024-09-13 04:58] LABS: AST 29 U/L (17-59); Alkaline Phosphatase 95 U/L (38-126); Potassium 3.5 mmol/L (3.5-5.1)
[2024-09-13] MEDS ORDERED: VANCOMYCIN 1,000 MG in SODIUM CHLORIDE 0.9% 250 ML IVPB SCH (05:00)
[2024-09-13] MEDS: ZINC SULFATE 220 MG CAP PO SCH (08:44)
[2024-09-13] MEDS: CHOLECALCIFEROL 25 MCG (1000 IU) TABLET PO SCH (08:44)
[2024-09-13] MEDS: hydroCHLOROthiazide 25 MG TAB PO SCH (08:44)
[2024-09-13 11:50] VITALS: BMI 29.1
--- NOTE | 2024-09-13 13:49 | US ---
EXAMINATION TYPE: US venous doppler duplex LE LT DATE OF EXAM: 09/13/2024 1:07 PM COMPARISON: NONE CLINICAL INDICATION: Male, 69 years old with history of pain and swelling; Pain in left calf. , Pain TECHNIQUE: The lower extremity deep venous system is examined utilizing real time linear array sonog mitesh with graded compression, color doppler sonography, and spectral doppler. SIDE PERFORMED: Left FINDINGS: VESSELS IMAGED: Common Femoral Vein Deep Femoral Vein Greater Saphenous Vein * Femoral Vein Popliteal Vein Small Saphenous Vein * Proximal Calf Veins (* superficial vessels) Left Leg: Negative for DVT, Color Doppler imaging shows patency of the vessels. Spectral waveforms a re within normal limits. IMPRESSION: 1. No evidence of deep vein thrombosis of the left lower extremity. [facility], , 09/13/2024 1:46 PM
--- NOTE | 2024-09-13 14:58 | P.PN ---
Subjective Progress Note Date: 09/13/24 Interval History: History of present illness; patient is a 69-year-old gentleman with past medical history significant for hypertension, hyperlipidemia who presented to the ER because of fevers and bodyaches. Patient stated that he has been having burning with urination for the last few days. Patient also complained of lower back pain. Patient also endorsing that he was having fevers with chills. Patient also complaining of bodyaches. Patient denies any chest pain. There is no complaint of shortness of breath. Patient complaining of nonproductive cough. Because of the symptoms, patient brought in the ER Initial lab work done in the ER showed WBC 17.4, hemoglobin 15.3, platelet count 331, sodium 135, potassium 3.5, chloride 99, carbon is a 24, BUN 20, creatinine 0.54, lactate 2.1 alk phos 145 UA done showed large amount of leukocyte Estrace, urine WBC 109 Influenza A not detected Influenza B not detected RSV not detected COVID-19 not detected EKG done in the ER showed heart rate of 127, no ST segment elevation or depression seen, no T-wave inversions seen. Chest x-ray done in the ER showed no acute cardiopulmonary process 09/13--patient was seen and examined today. Patient feeling better today. Complaining of left lower extremity swelling. Ultrasound venous ordered to rule out DVT, of left lower extremity. Had a fever of 101.5 today. WBCs trended up to 28.6, hemoglobin 13.7, platelet 266. Sodium 130 potassium 3.5, BUN 19, creatinine trended down 1.03. Urine culture blood culture negative so far. Assessment and plan: Sepsis: Acute pyelonephritis Leukocytosis: Acute lactic acidosis: ANKITA: Resolved, secondary to above Presented with fevers, body aches, burning with urination, lower back pain, bilateral flank pain. Tachycardia, leukocytosis, 17.4, lactate 2.1 on presentation. UA positive for large amount of leukocyte esterase Ultrasound kidneys negative for hydronephrosis or stone. Urine culture, blood culture. Was initially on vancomycin and cefepime, now switched to Rocephin Infectious disease consulted and following. Ultrasound venous left lower extremity to rule out DVT Hypertension Hyperlipidemia History of coronary artery disease Right lower extremity prosthetic: Continue home meds DVT prophylaxis: Subcutaneous heparin Monitor vital signs and labs Labs and medication were reviewed. Continue same treatment. Further recommendations as per clinical course of the patient PHYSICAL EXAMINATION: GENERAL: The patient is A&O x3, NAD HEENT: EOMI, Sclerae anicteric, Moist Mucous membranes Neck: Supple, Non tender, No JVD PULMONARY: Equal breath souds B/L, No wheezing, No crackles. CARDIOVASCULAR: S1, S2 present. No murmurs, rubs, or gallops. ABDOMEN: Soft, nontender, nondistended, normoactive bowel sounds. No guarding or rebound tenderness. MUSCULOSKELETAL: No edema, No cyanosis. No clubbing. Normal ROM. Intact peripheral pulses. NEUROLOGICAL: CN 2-12 grossly intact. No FND Skin: No Rash REVIEW OF SYSTEMS: CONSTITUTIONAL: Complains of fever and fatigue. CARDIOVASCULAR: No chest pain, palpitations or syncope. PULMONARY: No shortness of breath, no cough, sore throat. GASTROINTESTINAL: No nausea, vomiting, diarrhea, abdominal pain. : No Dysuria, urgency, frequency. Extremities: Left lower extremity pain and swelling. NEUROLOGICAL: No headaches, no weakness, or numbness Dictation was produced using [employer] dictation software. please excuse any grammatical, word or spelling errors. Objective - Vital Signs Vital signs: Vital Signs Temp 98.8 F 09/13/24 13:44 Pulse 91 09/13/24 13:44 Resp 16 09/13/24 13:44 BP 116/66 09/13/24 13:44 Pulse Ox 91 L 09/13/24 13:44 FiO2 Intake & Output 09/12/24 09/13/24 09/13/24 18:59 06:59 18:59 Weight 61.235 kg 102.965 kg Other: Voiding Method Toilet Toilet # Voids 2 2 - Labs CBC & Chem 7: 09/13/24 03:44 09/13/24 03:44 Labs: Abnormal Lab Results - Last 24 Hours (Table) 09/13/24 09/13/24 Range/Units 03:44 03:44 WBC 28.6 H (3.8-10.6) k/uL Neutrophils # 26.1 H (1.3-7.7) k/uL Lymphocytes # 0.9 L (1.0-4.8) k/uL Monocytes # 1.1 H (0-1.0) k/uL Sodium 130 L (137-145) mmol/L Carbon Dioxide 21 L (22-30) mmol/L Total Protein 6.0 L (6.3-8.2) g/dL Albumin 3.4 L (3.5-5.0) g/dL Microbiology - Last 24 Hours (Table) 09/12/24 04:18 Blood Culture - Preliminary Blood 09/12/24 02:50 Urine Culture - Preliminary Urine,Clean Catch
[2024-09-13] MEDS: IBUPROFEN 400 MG TAB PO PRN (18:02)
[2024-09-13] MEDS: ATORVASTATIN 80 MG TAB PO SCH (20:27)
[2024-09-13] MEDS: VALSARTAN 160 MG TAB PO SCH (20:28)
[2024-09-13] MEDS: HEPARIN SODIUM,PORCINE 5,000 UNIT/ML 1 ML VIAL SQ SCH (20:28)
[2024-09-13] MEDS: carvediloL 3.125 MG TAB PO SCH (20:28)
[2024-09-13] MEDS: ASPIRIN 81 MG PO SCH (20:28)
[2024-09-14 08:25] LABS: Basophils # (A) 0.07 X 10*3/uL (0.00-0.10); Basophils % (A) 0.4 %; Eosinophils # (A) 0.11 X 10*3/uL (0.04-0.35); Eosinophils % (A) 0.7 %; HCT 37.2 % (39.6-50.0); HGB 12.3 g/dL (13.0-17.0); Lymphocytes # (A) 1.27 X 10*3/uL (0.90-5.00); MCH 30.1 pg (27.0-32.0); MCHC 33.1 g/dL (32.0-37.0); Mean Platelet Volume 9.8 FL (9.5-12.2); Monocytes # (A) 1.37 X 10*3/uL (0.20-1.00); Monocytes % (A) 8.7 %; NRBC Per 100 WBC 0 X 10*3/uL (0.00-0.01); Neutrophils % (A) 81.6 %; Platelet Count 243 X 10*3/uL (140-440); RBC 4.09 X 10*6/uL (4.40-5.60); WBC 15.81 X 10*3/uL (4.50-10.00)
[2024-09-14 08:34] LABS: BUN/Creat Ratio 12.67 Ratio (12.00-20.00); Blood Urea Nitrogen 15.2 mg/dL (9.0-27.0); Calcium 8.9 mg/dL (8.7-10.3); Carbon Dioxide 25.9 mmol/L (21.6-31.8); Chloride 101 mmol/L (96-109); Glucose 94 mg/dL (70-110); Potassium 3.6 mmol/L (3.5-5.5); Sodium 139 mmol/L (135-145)
--- NOTE | 2024-09-14 13:17 | P.PN ---
Subjective Interval History: History of present illness; patient is a 69-year-old gentleman with past medical history significant for hypertension, hyperlipidemia who presented to the ER because of fevers and bodyaches. Patient stated that he has been having burning with urination for the last few days. Patient also complained of lower back pain. Patient also endorsing that he was having fevers with chills. Patient also complaining of bodyaches. Patient denies any chest pain. There is no complaint of shortness of breath. Patient complaining of nonproductive cough. Because of the symptoms, patient brought in the ER Initial lab work done in the ER showed WBC 17.4, hemoglobin 15.3, platelet count 331, sodium 135, potassium 3.5, chloride 99, carbon is a 24, BUN 20, creatinine 0.54, lactate 2.1 alk phos 145 UA done showed large amount of leukocyte Estrace, urine WBC 109 Influenza A not detected Influenza B not detected RSV not detected COVID-19 not detected EKG done in the ER showed heart rate of 127, no ST segment elevation or depression seen, no T-wave inversions seen. Chest x-ray done in the ER showed no acute cardiopulmonary process 09/13--patient was seen and examined today. Patient feeling better today. Complaining of left lower extremity swelling. Ultrasound venous ordered to rule out DVT, of left lower extremity. Had a fever of 101.5 today. WBCs trended up to 28.6, hemoglobin 13.7, platelet 266. Sodium 130 potassium 3.5, BUN 19, creatinine trended down 1.03. Urine culture blood culture negative so far. 09/14--patient was seen and examined today. Abdominal pain, flank pain is better. Continues complain of left lower extremity pain, which improved yesterday with ibuprofen, reported pain again overnight. Ultrasound venous was negative for DVT.Patient is afebrile since yesterday, heart rate 67, respiratory rate 18, blood pressure 97/59, saturating 95% on room air. WBC 15.8, hemoglobin 12.3, platelet 243. BUN unremarkable, creatinine 1.2stable. Patient currently on Rocephin. Urine culture growing staph epi. Blood culture prelim report. Assessment and plan: Sepsis: Acute pyelonephritis Leukocytosis: Acute lactic acidosis: ANKITA: Resolved, secondary to above Presented with fevers, body aches, burning with urination, lower back pain, bilateral flank pain. Tachycardia, leukocytosis, 17.4, lactate 2.1 on presentation. UA positive for large amount of leukocyte esterase Ultrasound kidneys negative for hydronephrosis or stone. Urine cultur--staph epi blood culture. Was initially on vancomycin and cefepime, now switched to Rocephin Infectious disease consulted and following. Ultrasound venous left lower extremity for DVT Hypertension Hyperlipidemia History of coronary artery disease Right lower extremity prosthetic: Continue home meds DVT prophylaxis: Subcutaneous heparin Monitor vital signs and labs Labs and medication were reviewed. Continue same treatment. Further recommendations as per clinical course of the patient PHYSICAL EXAMINATION: GENERAL: The patient is A&O x3, NAD HEENT: EOMI, Sclerae anicteric, Moist Mucous membranes Neck: Supple, Non tender, No JVD PULMONARY: Equal breath souds B/L, No wheezing, No crackles. CARDIOVASCULAR: S1, S2 present. No murmurs, rubs, or gallops. ABDOMEN: Soft, nontender, nondistended, normoactive bowel sounds. No guarding or rebound tenderness. MUSCULOSKELETAL: No edema, No cyanosis. No clubbing. Normal ROM. Intact peripheral pulses. NEUROLOGICAL: CN 2-12 grossly intact. No FND Skin: No Rash REVIEW OF SYSTEMS: CONSTITUTIONAL: Complains of fever and fatigue. CARDIOVASCULAR: No chest pain, palpitations or syncope. PULMONARY: No shortness of breath, no cough, sore throat. GASTROINTESTINAL: No nausea, vomiting, diarrhea, abdominal pain. : No Dysuria, urgency, frequency. Extremities: Left lower extremity pain and swelling. NEUROLOGICAL: No headaches, no weakness, or numbness Dictation was produced using [employer] dictation software. please excuse any grammatical, word or spelling errors. Objective - Vital Signs Vital signs: Vital Signs Temp 98.0 F 09/14/24 07:06 Pulse 67 09/14/24 07:06 Resp 18 09/14/24 07:06 BP 97/59 09/14/24 07:06 Pulse Ox 95 09/14/24 07:06 FiO2 Intake & Output 09/13/24 09/14/24 09/14/24 18:59 06:59 18:59 Weight 102.965 kg Other: Voiding Method Toilet Toilet Toilet # Voids 4 2 # Bowel Movements 2 - Labs CBC & Chem 7: 09/14/24 03:27 09/14/24 03:27 Labs: Abnormal Lab Results - Last 24 Hours (Table) 09/14/24 09/14/24 Range/Units 03:27 03:27 WBC 15.81 H (4.50-10.00) X 10*3/uL RBC 4.09 L (4.40-5.60) X 10*6/uL Hgb 12.3 L (13.0-17.0) g/dL Hct 37.2 L (39.6-50.0) % Immature Gran # 0.09 H (0.00-0.04) X 10*3/uL Neutrophils # 12.90 H (1.80-7.70) X 10*3/uL Monocytes # 1.37 H (0.20-1.00) X 10*3/uL Anion Gap 12.10 H (4.00-12.00) mmol/L Microbiology - Last 24 Hours (Table) 09/12/24 04:18 Blood Culture - Preliminary Blood 09/12/24 02:50 Urine Culture - Final Urine,Clean Catch Staphylococcus epidermidis
[2024-09-14] MEDS ORDERED: VANCOMYCIN IV PER PHARMACY 1 EACH MISC MISCELLANE PRN (15:13)
--- NOTE | 2024-09-14 15:17 | P.PN ---
Subjective Progress Note Date: 09/14/24 Principal diagnosis: Reason for follow-up is UTI Patient is a 69-year-old male with a past medical history significant for hypertension [place] sleep apnea coronary artery disease, presenting to the hospital with difficulty burning urination and pain diagnosed with a symptomatic UTI On today's evaluation that is 09/14/2024, Patient did have resolution of his fever and is afebrile this morning patient denies having any chest pain shortness of breath or cough, the patient is currently on room air, patient denies any abdominal pain no diarrhea no nausea no vomiting. Patient white count is down to 15.81, creatinine is 1.2 urine is growing oxacillin resistant staph epi blood cultures are pending Objective - Vital Signs Vital signs: Vital Signs Temp 98.0 F 09/14/24 07:06 Pulse 67 09/14/24 07:06 Resp 18 09/14/24 07:06 BP 97/59 09/14/24 07:06 Pulse Ox 95 09/14/24 07:06 FiO2 Intake & Output 09/13/24 09/14/24 09/14/24 18:59 06:59 18:59 Weight 102.965 kg Other: Voiding Method Toilet Toilet Toilet # Voids 4 2 # Bowel Movements 2 - Exam GENERAL DESCRIPTION: An elderly male lying in bed in no distress RESPIRATORY SYSTEM: Unlabored breathing , decreased breath sounds at bases HEART: S1 S2 regular rate and rhythm , ABDOMEN: Soft , no tenderness EXTREMITIES: Left leg with some swelling but no redness or skin breakdown - Labs CBC & Chem 7: 09/14/24 03:27 09/14/24 03:27 Labs: Abnormal Lab Results - Last 24 Hours (Table) 09/14/24 09/14/24 Range/Units 03:27 03:27 WBC 15.81 H (4.50-10.00) X 10*3/uL RBC 4.09 L (4.40-5.60) X 10*6/uL Hgb 12.3 L (13.0-17.0) g/dL Hct 37.2 L (39.6-50.0) % Immature Gran # 0.09 H (0.00-0.04) X 10*3/uL Neutrophils # 12.90 H (1.80-7.70) X 10*3/uL Monocytes # 1.37 H (0.20-1.00) X 10*3/uL Anion Gap 12.10 H (4.00-12.00) mmol/L Microbiology - Last 24 Hours (Table) 09/12/24 04:18 Blood Culture - Preliminary Blood 09/12/24 02:50 Urine Culture - Preliminary Urine,Clean Catch Assessment and Plan (1) Sepsis Current Visit: Yes Status: Acute Code(s): A41.9 - SEPSIS, UNSPECIFIED ORGANISM SNOMED Code(s): 11701485 (2) UTI (urinary tract infection) Current Visit: Yes Status: Acute Code(s): N39.0 - URINARY TRACT INFECTION, SITE NOT SPECIFIED SNOMED Code(s): 13558313 Plan: 1patient was in the hospital with sepsis in this patient noted to have fever tachycardia elevated white count, elevated lactic acid meeting criteria for SIRS source is urinary in this patient who did have a urinary symptom concerning for possible Pyelonephritis ultrasound was negative for any hydronephrosis or stone. 2patient urine has been finalized with oxacillin resistant staph epi we will going to sclerosis and start the patient on vancomycin pharmacy to dose repeat a UA and a culture and monitor clinical course closely Dictation was produced using [employer] dictation software. please excuse any grammatical, word or spelling errors. Time with Patient: Less than 30
[2024-09-14] MEDS: VANCOMYCIN 1,750 MG in SODIUM CHLORIDE 0.9% 500 ML 500 ML IVPB SCH (16:06)
[2024-09-14 21:40] LABS: Appearance,Urine Clear (Clear); Bilirubin,Urine Negative (Negative); Blood,Urine Negative (Negative); Color,Urine Colorless; Glucose,Urine (UA) Negative (Negative); Ketones,Urine Negative (Negative); Leukocyte Esterase,Urine Negative (Negative); Nitrite,Urine Negative (Negative); Protein,Urine Negative (Negative); Specific Gravity,Urine 1.008 (1.001-1.035); Urobilinogen,Urine <2.0 mg/dL (<2.0)
[2024-09-15 08:32] LABS: Blood Urea Nitrogen 12.4 mg/dL (9.0-27.0); Carbon Dioxide 26.3 mmol/L (21.6-31.8); Chloride 102 mmol/L (96-109); Glucose 91 mg/dL (70-110); Potassium 3.7 mmol/L (3.5-5.5); Sodium 141 mmol/L (135-145)
[2024-09-15 08:52] LABS: Basophils # (A) 0.06 X 10*3/uL (0.00-0.10); Basophils % (A) 0.5 %; Eosinophils # (A) 0.17 X 10*3/uL (0.04-0.35); Eosinophils % (A) 1.5 %; HCT 40.8 % (39.6-50.0); HGB 13.8 g/dL (13.0-17.0); Lymphocytes # (A) 1.43 X 10*3/uL (0.90-5.00); MCH 30.6 pg (27.0-32.0); MCHC 33.8 g/dL (32.0-37.0); MCV 90.5 FL (80.0-97.0); Mean Platelet Volume 9.7 FL (9.5-12.2); Monocytes # (A) 0.86 X 10*3/uL (0.20-1.00); Monocytes % (A) 7.8 %; NRBC Per 100 WBC 0 X 10*3/uL (0.00-0.01); Neutrophils # (A) 8.38 X 10*3/uL (1.80-7.70); Neutrophils % (A) 76.5 %; Platelet Count 285 X 10*3/uL (140-440); RBC 4.51 X 10*6/uL (4.40-5.60); RDW 13.9 % (11.5-14.5); WBC 10.98 X 10*3/uL (4.50-10.00)
--- NOTE | 2024-09-15 13:21 | P.PN ---
Subjective Interval History: History of present illness; patient is a 69-year-old gentleman with past medical history significant for hypertension, hyperlipidemia who presented to the ER because of fevers and bodyaches. Patient stated that he has been having burning with urination for the last few days. Patient also complained of lower back pain. Patient also endorsing that he was having fevers with chills. Patient also complaining of bodyaches. Patient denies any chest pain. There is no complaint of shortness of breath. Patient complaining of nonproductive cough. Because of the symptoms, patient brought in the ER Initial lab work done in the ER showed WBC 17.4, hemoglobin 15.3, platelet count 331, sodium 135, potassium 3.5, chloride 99, carbon is a 24, BUN 20, creatinine 0.54, lactate 2.1 alk phos 145 UA done showed large amount of leukocyte Estrace, urine WBC 109 Influenza A not detected Influenza B not detected RSV not detected COVID-19 not detected EKG done in the ER showed heart rate of 127, no ST segment elevation or depression seen, no T-wave inversions seen. Chest x-ray done in the ER showed no acute cardiopulmonary process 09/13--patient was seen and examined today. Patient feeling better today. Complaining of left lower extremity swelling. Ultrasound venous ordered to rule out DVT, of left lower extremity. Had a fever of 101.5 today. WBCs trended up to 28.6, hemoglobin 13.7, platelet 266. Sodium 130 potassium 3.5, BUN 19, creatinine trended down 1.03. Urine culture blood culture negative so far. 09/14--patient was seen and examined today. Abdominal pain, flank pain is better. Continues complain of left lower extremity pain, which improved yesterday with ibuprofen, reported pain again overnight. Ultrasound venous was negative for DVT.Patient is afebrile since yesterday, heart rate 67, respiratory rate 18, blood pressure 97/59, saturating 95% on room air. WBC 15.8, hemoglobin 12.3, platelet 243. BUN unremarkable, creatinine 1.2stable. Patient currently on Rocephin. Urine culture growing staph epi. Blood culture prelim report. 09/15--patient was seen and examined today. Continues complain of left lower extremity pain. Urine culture grew Staphylococcus epididymitis, resistant to oxacillin, repeat UA and urine culture ordered by infectious disease. Antibiotics changed from Rocephin to vancomycin per infectious disease. Patient is afebrile, heart rate 72, respiratory rate 17, blood pressure 114/63, saturating 95% on room air.WBCs 10.9, hemoglobin 13.8, platelets 285. Sodium 141 potassium 3.7 chloride 102 BUN 12.4 creatinine 1.0. Blood culture negative so far. Assessment and plan: Sepsis: Acute pyelonephritis Left lower extremity cellulitis: Leukocytosis: Acute lactic acidosis: ANKITA: Resolved, secondary to above Presented with fevers, body aches, burning with urination, lower back pain, bilateral flank pain. Tachycardia, leukocytosis, 17.4, lactate 2.1 on presentation. UA positive for large amount of leukocyte esterase Ultrasound kidneys negative for hydronephrosis or stone. Urine cultur--staph epi--oxacillin resistant, repeat urine culture per infectious disease blood culture. Was initially on Rocephin, now switched to vancomycin. Infectious disease consulted and following. Ultrasound venous left lower extremity negative for DVT Hypertension Hyperlipidemia History of coronary artery disease Right lower extremity prosthetic: Continue home meds DVT prophylaxis: Subcutaneous heparin Monitor vital signs and labs Labs and medication were reviewed. Continue same treatment. Further recommendations as per clinical course of the patient PHYSICAL EXAMINATION: GENERAL: The patient is A&O x3, NAD HEENT: EOMI, Sclerae anicteric, Moist Mucous membranes Neck: Supple, Non tender, No JVD PULMONARY: Equal breath souds B/L, No wheezing, No crackles. CARDIOVASCULAR: S1, S2 present. No murmurs, rubs, or gallops. ABDOMEN: Soft, nontender, nondistended, normoactive bowel sounds. No guarding or rebound tenderness. MUSCULOSKELETAL: No edema, No cyanosis. No clubbing. Normal ROM. Intact aubree pheral pulses. NEUROLOGICAL: CN 2-12 grossly intact. No FND Skin: No Rash REVIEW OF SYSTEMS: CONSTITUTIONAL: Complains of fever and fatigue. CARDIOVASCULAR: No chest pain, palpitations or syncope. PULMONARY: No shortness of breath, no cough, sore throat. GASTROINTESTINAL: No nausea, vomiting, diarrhea, abdominal pain. : No Dysuria, urgency, frequency. Extremities: Left lower extremity warmth, pain and swelling. NEUROLOGICAL: No headaches, no weakness, or numbness Dictation was produced using [employer] software. please excuse any grammatical, word or spelling errors. Objective - Vital Signs Vital signs: Vital Signs Temp 97.8 F 09/15/24 07:25 Pulse 72 09/15/24 07:25 Resp 17 09/15/24 07:25 BP 114/63 09/15/24 07:25 Pulse Ox 95 09/15/24 07:25 FiO2 Intake & Output 09/14/24 09/15/24 09/15/24 18:59 06:59 18:59 Other: Voiding Method Toilet Toilet # Voids 6 1 # Bowel Movements 1 - Labs CBC & Chem 7: 09/15/24 03:23 09/15/24 03:23 Labs: Abnormal Lab Results - Last 24 Hours (Table) 09/15/24 09/15/24 Range/Units 03:23 03:23 WBC 10.98 H (4.50-10.00) X 10*3/uL Immature Gran # 0.08 H (0.00-0.04) X 10*3/uL Neutrophils # 8.38 H (1.80-7.70) X 10*3/uL Anion Gap 12.70 H (4.00-12.00) mmol/L Microbiology - Last 24 Hours (Table) 09/12/24 04:18 Blood Culture - Preliminary Blood 09/12/24 02:50 Urine Culture - Final Urine,Clean Catch Staphylococcus epidermidis
--- NOTE | 2024-09-15 15:06 | P.PN ---
Subjective Progress Note Date: 09/15/24 Principal diagnosis: Reason for follow-up is UTI Patient is a 69-year-old male with a past medical history significant for hypertension [place] sleep apnea coronary artery disease, presenting to the hospital with difficulty burning urination and pain diagnosed with a symptomatic UTI On today's evaluation that is 09/15/2024,the patient denies any fever or any chills, patient is breathing comfortably on room air, the patient denies chest pain shortness of breath and no significant cough, patient denies abdominal pain, no nausea vomiting or diarrhea. Left leg redness that was noted yesterday has slightly decreased. Patient white count is down to 10.98, creat is 1.0, repeat UA is negative Objective - Vital Signs Vital signs: Vital Signs Temp 97.8 F 09/15/24 07:25 Pulse 72 09/15/24 07:25 Resp 17 09/15/24 07:25 BP 114/63 09/15/24 07:25 Pulse Ox 95 09/15/24 07:25 FiO2 Intake & Output 09/14/24 09/15/24 09/15/24 18:59 06:59 18:59 Other: Voiding Method Toilet Toilet # Voids 6 1 # Bowel Movements 1 - Exam GENERAL DESCRIPTION: An elderly male lying in bed in no distress RESPIRATORY SYSTEM: Unlabored breathing , decreased breath sounds at bases HEART: S1 S2 regular rate and rhythm , ABDOMEN: Soft , no tenderness EXTREMITIES: Left leg redness has decreased from billy placed yesterday - Labs CBC & Chem 7: 09/15/24 03:23 09/15/24 03:23 Labs: Abnormal Lab Results - Last 24 Hours (Table) 09/15/24 09/15/24 Range/Units 03:23 03:23 WBC 10.98 H (4.50-10.00) X 10*3/uL Immature Gran # 0.08 H (0.00-0.04) X 10*3/uL Neutrophils # 8.38 H (1.80-7.70) X 10*3/uL Anion Gap 12.70 H (4.00-12.00) mmol/L Microbiology - Last 24 Hours (Table) 09/12/24 04:18 Blood Culture - Preliminary Blood 09/12/24 02:50 Urine Culture - Final Urine,Clean Catch Staphylococcus epidermidis Assessment and Plan (1) UTI (urinary tract infection) Current Visit: Yes Status: Acute Code(s): N39.0 - URINARY TRACT INFECTION, SITE NOT SPECIFIED SNOMED Code(s): 61257711 (2) Left leg cellulitis Current Visit: Yes Status: Acute Code(s): L03.116 - CELLULITIS OF LEFT LOWER LIMB SNOMED Code(s): 29396484348346452 Plan: 1patient was in the hospital with sepsis in this patient noted to have fever tachycardia elevated white count, elevated lactic acid meeting criteria for SIRS source is urinary in this patient who did have a urinary symptom concerning for possible Pyelonephritis ultrasound was negative for any hydronephrosis or stone. 2patient urine has been finalized with oxacillin resistant staph epi, possible contaminant as repeat UA done yesterday has been negative 3patient has developed cellulitis of left lower extremity seem to have responded to the vancomycin to continue to follow 24-hour before transition to oral antibiotic Dictation was produced using [employer] dictation software. please excuse any grammatical, word or spelling errors. Time with Patient: Less than 30
[2024-09-16] MEDS: ACETAMINOPHEN TAB 325 MG TAB PO PRN (09:05)
[2024-09-16 10:36] LABS: BUN/Creat Ratio 11.75 Ratio (12.00-20.00); Blood Urea Nitrogen 9.4 mg/dL (9.0-27.0); Calcium 8.7 mg/dL (8.7-10.3); Chloride 106 mmol/L (96-109); Glucose 100 mg/dL (70-110); Potassium 3.5 mmol/L (3.5-5.5); Sodium 142 mmol/L (135-145)
[2024-09-16 11:07] LABS: Basophils % (A) 1.1 %; Eosinophils # (A) 0.22 X 10*3/uL (0.04-0.35); Eosinophils % (A) 2.4 %; HCT 39.3 % (39.6-50.0); HGB 13.5 g/dL (13.0-17.0); Lymphocytes # (A) 1.57 X 10*3/uL (0.90-5.00); Lymphocytes % (A) 17.1 %; MCH 30.7 pg (27.0-32.0); MCHC 34.4 g/dL (32.0-37.0); MCV 89.3 FL (80.0-97.0); Mean Platelet Volume 9.2 FL (9.5-12.2); Monocytes % (A) 9.8 %; NRBC Per 100 WBC 0 X 10*3/uL (0.00-0.01); Neutrophils # (A) 6.32 X 10*3/uL (1.80-7.70); Neutrophils % (A) 68.9 %; Platelet Count 306 X 10*3/uL (140-440); RDW 13.6 % (11.5-14.5); WBC 9.17 X 10*3/uL (4.50-10.00)
--- NOTE | 2024-09-16 14:58 | P.PN ---
Subjective Progress Note Date: 09/13/24 Principal diagnosis: Reason for follow-up is UTI Patient is a 69-year-old male with a past medical history significant for hypertension [place] sleep apnea coronary artery disease, presenting to the hospital with difficulty burning urination and pain diagnosed with a symptomatic UTI On today's evaluation that is 09/13/2024, patient did have a fever of 101.5 at 1:49 AM, the patient has been afebrile since then, patient is breathing comfortably and is currently on room air, patient denies having any significant cough no chest pain, patient denies nausea vomiting or diarrhea and no abdominal pain, has been complaining of mostly swelling and pain in the left lower extre mity Patient white count is up to 28.6, creatinine is 1.03 urine is currently pending Objective - Vital Signs Vital signs: Vital Signs Temp 98.4 F 09/13/24 07:11 Pulse 91 09/13/24 07:11 Resp 16 09/13/24 07:11 BP 128/63 09/13/24 07:11 Pulse Ox 94 L 09/13/24 07:11 FiO2 Intake & Output 09/12/24 09/13/24 09/13/24 18:59 06:59 18:59 Weight 61.235 kg 102.965 kg Other: Voiding Method Toilet Toilet # Voids 2 2 - Exam GENERAL DESCRIPTION: An elderly male lying in bed in no distress RESPIRATORY SYSTEM: Unlabored breathing , decreased breath sounds at bases HEART: S1 S2 regular rate and rhythm , ABDOMEN: Soft , no tenderness EXTREMITIES: Left leg with some swelling but no redness or skin breakdown - Labs CBC & Chem 7: 09/14/24 03:27 09/14/24 03:27 Labs: Abnormal Lab Results - Last 24 Hours (Table) 09/12/24 09/13/24 09/13/24 Range/Units 09:29 03:44 03:44 WBC 28.6 H (3.8-10.6) k/uL Neutrophils # 26.1 H (1.3-7.7) k/uL Lymphocytes # 0.9 L (1.0-4.8) k/uL Monocytes # 1.1 H (0-1.0) k/uL Sodium 130 L (137-145) mmol/L Carbon Dioxide 21 L (22-30) mmol/L Total Protein 6.0 L (6.3-8.2) g/dL Albumin 3.4 L (3.5-5.0) g/dL Procalcitonin 9.50 H (0.02-0.50) ng/mL Microbiology - Last 24 Hours (Table) 09/12/24 04:18 Blood Culture - Preliminary Blood 09/12/24 02:50 Urine Culture - Preliminary Urine,Clean Catch Assessment and Plan (1) Sepsis Current Visit: Yes Status: Acute Code(s): A41.9 - SEPSIS, UNSPECIFIED ORGANISM SNOMED Code(s): 95781440 (2) UTI (urinary tract infection) Current Visit: Yes Status: Acute Code(s): N39.0 - URINARY TRACT INFECTION, SITE NOT SPECIFIED SNOMED Code(s): 41804694 Plan: 1patient was in the hospital with sepsis in this patient noted to have fever tachycardia elevated white count, elevated lactic acid meeting criteria for SIRS source is urinary in this patient who did have a urinary symptom concerning for possible Pyelonephritis ultrasound was negative for any hydronephrosis or stone. 2patient is currently being treated with Rocephin 2 g daily while waiting for the culture to finalize. We will order Doppler ultrasound of the lower extremity because of his symptom and follow-up on the results Dictation was produced using [employer] dictation software. please excuse any grammatical, word or spelling errors.
--- NOTE | 2024-09-16 14:59 | P.PN ---
Subjective Progress Note Date: 09/16/24 Principal diagnosis: Reason for follow-up is UTI Patient is a 69-year-old male with a past medical history significant for hypertension [place] sleep apnea coronary artery disease, presenting to the hospital with difficulty burning urination and pain diagnosed with a symptomatic UTI On today's evaluation that is 09/16/2024,the patient remains to be afebrile, patient is on room air not requiring supplemental oxygen and denies any shortness of breath no chest pain or cough.Patient denies having any nausea or vomiting, no abdominal pain and no diarrhea mention improvement in symptoms in the left lower extremity which is currently wrapped. Patient white count is 9.17 creatinine is 0.8 Objective - Vital Signs Vital signs: Vital Signs Temp 98.5 F 09/16/24 07:06 Pulse 74 09/16/24 08:51 Resp 18 09/16/24 07:06 BP 135/78 09/16/24 08:51 Pulse Ox 96 09/16/24 07:06 FiO2 Intake & Output 09/15/24 09/16/24 09/16/24 18:59 06:59 18:59 Output Total 600 1150 Balance -600 -1150 Output: Urine 600 1150 Other: Voiding Method Toilet Urinal # Voids 1 - Exam GENERAL DESCRIPTION: An elderly male lying in bed in no distress RESPIRATORY SYSTEM: Unlabored breathing , decreased breath sounds at bases HEART: S1 S2 regular rate and rhythm , ABDOMEN: Soft , no tenderness EXTREMITIES: Left leg currently wrapped with [place] wrap no drainage - Labs CBC & Chem 7: 09/16/24 07:24 09/16/24 07:24 Labs: Abnormal Lab Results - Last 24 Hours (Table) 09/16/24 09/16/24 Range/Units 07:24 07:24 Hct 39.3 L (39.6-50.0) % MPV 9.2 L (9.5-12.2) FL Immature Gran # 0.06 H (0.00-0.04) X 10*3/uL BUN/Creatinine Ratio 11.75 L (12.00-20.00) Ratio Microbiology - Last 24 Hours (Table) 09/12/24 04:18 Blood Culture - Preliminary Blood Assessment and Plan (1) UTI (urinary tract infection) Current Visit: Yes Status: Acute Code(s): N39.0 - URINARY TRACT INFECTION, SITE NOT SPECIFIED SNOMED Code(s): 81816795 (2) Left leg cellulitis Current Visit: Yes Status: Acute Code(s): L03.116 - CELLULITIS OF LEFT LOWER LIMB SNOMED Code(s): 55529169989874221 Plan: 1patient was in the hospital with sepsis in this patient noted to have fever tachycardia elevated white count, elevated lactic acid meeting criteria for SIRS source is urinary in this patient who did have a urinary symptom concerning for possible Pyelonephritis ultrasound was negative for any hydronephrosis or stone. 2patient urine has been finalized with oxacillin resistant staph epi, possible contaminant as repeat UA done yesterday has been negative, UTI has been adequately treated 3patient with cellulitis of left lower extremity continue with the [place] wrap for compression along with vancomycin for another 24 hours before transition to oral Zyvox multiple question concern answered Dictation was produced using [employer] dictation software. please excuse any grammatical, word or spelling errors.
--- NOTE | 2024-09-16 15:23 | P.PN ---
Subjective Interval History: History of present illness; patient is a 69-year-old gentleman with past medical history significant for hypertension, hyperlipidemia who presented to the ER because of fevers and bodyaches. Patient stated that he has been having burning with urination for the last few days. Patient also complained of lower back pain. Patient also endorsing that he was having fevers with chills. Patient also complaining of bodyaches. Patient denies any chest pain. There is no complaint of shortness of breath. Patient complaining of nonproductive cough. Because of the symptoms, patient brought in the ER Initial lab work done in the ER showed WBC 17.4, hemoglobin 15.3, platelet count 331, sodium 135, potassium 3.5, chloride 99, carbon is a 24, BUN 20, creatinine 0.54, lactate 2.1 alk phos 145 UA done showed large amount of leukocyte Estrace, urine WBC 109 Influenza A not detected Influenza B not detected RSV not detected COVID-19 not detected EKG done in the ER showed heart rate of 127, no ST segment elevation or depression seen, no T-wave inversions seen. Chest x-ray done in the ER showed no acute cardiopulmonary process 09/13--patient was seen and examined today. Patient feeling better today. Complaining of left lower extremity swelling. Ultrasound venous ordered to rule out DVT, of left lower extremity. Had a fever of 101.5 today. WBCs trended up to 28.6, hemoglobin 13.7, platelet 266. Sodium 130 potassium 3.5, BUN 19, creatinine trended down 1.03. Urine culture blood culture negative so far. 09/14--patient was seen and examined today. Abdominal pain, flank pain is better. Continues complain of left lower extremity pain, which improved yesterday with ibuprofen, reported pain again overnight. Ultrasound venous was negative for DVT.Patient is afebrile since yesterday, heart rate 67, respiratory rate 18, blood pressure 97/59, saturating 95% on room air. WBC 15.8, hemoglobin 12.3, platelet 243. BUN unremarkable, creatinine 1.2stable. Patient currently on Rocephin. Urine culture growing staph epi. Blood culture prelim report. 09/15--patient was seen and examined today. Continues complain of left lower extremity pain. Urine culture grew Staphylococcus epididymitis, resistant to oxacillin, repeat UA and urine culture ordered by infectious disease. Antibiotics changed from Rocephin to vancomycin per infectious disease. Patient is afebrile, heart rate 72, respiratory rate 17, blood pressure 114/63, saturating 95% on room air.WBCs 10.9, hemoglobin 13.8, platelets 285. Sodium 141 potassium 3.7 chloride 102 BUN 12.4 creatinine 1.0. Blood culture negative so far. 09/16--- patient was seen and examined today. Continues complain of lateral extremity pain, gradually improving. Infectious disease following, currently on IV vancomycin, plan to switch to p.o. Zyvox tomorrow. Assessment and plan: Sepsis: Acute pyelonephritis Left lower extremity cellulitis: Leukocytosis: Acute lactic acidosis: ANKITA: Resolved, secondary to above Presented with fevers, body aches, burning with urination, lower back pain, bilateral flank pain. Tachycardia, leukocytosis, 17.4, lactate 2.1 on presentation. UA positive for large amount of leukocyte esterase Ultrasound kidneys negative for hydronephrosis or stone. Urine cultur--staph epi--oxacillin resistant, repeat urine culture per infectious disease blood culture. Was initially on Rocephin, now switched to vancomycin. Plan for p.o. Zyvox at discharge. Infectious disease consulted and following. Ultrasound venous left lower extremity negative for DVT Hypertension Hyperlipidemia History of coronary artery disease Right lower extremity prosthetic: Continue home meds DVT prophylaxis: Subcutaneous heparin Monitor vital signs and labs Labs and medication were reviewed. Continue same treatment. Further recommendations as per clinical course of the patient PHYSICAL EXAMINATION: GENERAL: The patient is A&O x3, NAD HEENT: EOMI, Sclerae anicteric, Moist Mucous membranes Neck: Supple, Non tender, No JVD PULMONARY: Equal breath souds B/L, No wheezing, No crackles. CARDIOVASCULAR: S1, S2 present. No murmurs, rubs, or gallops. ABDOMEN: Soft, nontender, nondistended, normoactive bowel sounds. No guarding or rebound tenderness. MUSCULOSKELETAL: No edema, No cyanosis. No clubbing. Normal ROM. Intact peripheral pulses. NEUROLOGICAL: CN 2-12 grossly intact. No FND Skin: No Rash REVIEW OF SYSTEMS: CONSTITUTIONAL: Complains of fever and fatigue. CARDIOVASCULAR: No chest pain, palpitations or syncope. PULMONARY: No shortness of breath, no cough, sore throat. GASTROINTESTINAL: No nausea, vomiting, diarrhea, abdominal pain. : No Dysuria, urgency, frequency. Extremities: Left lower extremity warmth, pain and swelling. NEUROLOGICAL: No headaches, no weakness, or numbness Dictation was produced using [employer] dictation software. please excuse any grammatical, word or spelling errors. Objective - Vital Signs Vital signs: Vital Signs Temp 98.5 F 09/16/24 07:06 Pulse 74 09/16/24 08:51 Resp 18 09/16/24 07:06 BP 135/78 09/16/24 08:51 Pulse Ox 96 09/16/24 07:06 FiO2 Intake & Output 09/15/24 09/16/24 09/16/24 18:59 06:59 18:59 Output Total 600 1150 Balance -600 -1150 Output: Urine 600 1150 Other: Voiding Method Toilet Urinal # Voids 1 - Labs CBC & Chem 7: 09/16/24 07:24 09/16/24 07:24 Labs: Abnormal Lab Results - Last 24 Hours (Table) 09/16/24 09/16/24 Range/Units 07:24 07:24 Hct 39.3 L (39.6-50.0) % MPV 9.2 L (9.5-12.2) FL Immature Gran # 0.06 H (0.00-0.04) X 10*3/uL BUN/Creatinine Ratio 11.75 L (12.00-20.00) Ratio Microbiology - Last 24 Hours (Table) 09/12/24 04:18 Blood Culture - Preliminary Blood
[2024-09-17] MEDS: VANCOMYCIN TROUGH DUE 1 EACH MISC MISCELLANE ONE (01:39)
[2024-09-17 06:28] LABS: African American GFR (CKD) >90 (>60 ml/min/1.73 sqM); Non-African American GFR(CKD) >90 (>60 ml/min/1.73 sqM)
[2024-09-17 06:50] VITALS: PULSE 68
[2024-09-17 08:17] VITALS: BP 141/76; RESP 18; TEMP 98.3
--- NOTE | 2024-09-17 13:26 | P.DS ---
Providers Date of admission: 09/12/24 04:06 Expected date of discharge: 09/17/24 Attending physician: Michele Sinha MD Consults: 09/12/24 08:11 Consult Physician Routine Consulting Provider: Vinayak Hunter Consult Reason/Comments: Sepsis, UTI Do you want consulting provider notified?: Yes Primary care physician: Alli Spear Hospital Course: Discharge diagnoses: Sepsis: Acute pyelonephritis Left lower extremity cellulitis: Leukocytosis: Acute lactic acidosis: ANKITA: Resolved, secondary to above Presented with fevers, body aches, burning with urination, lower back pain, bilateral flank pain. Tachycardia, leukocytosis, 17.4, lactate 2.1 on presentation. UA positive for large amount of leukocyte esterase Ultrasound kidneys negative for hydronephrosis or stone. Urine cultur--staph epi--oxacillin resistant, repeat urine culture per infectious disease Blood culture remain negative. Ultrasound venous left lower extremity negative for DVT Infectious disease consulted, received vancomycin during hospitalization, continued on Zyvox for 10 days at discharge. Hypertension Hyperlipidemia History of coronary artery disease Right lower extremity prosthetic: Continue home meds Hospital course: History of present illness; patient is a 69-year-old gentleman with past medical history significant for hypertension, hyperlipidemia who presented to the ER because of fevers and bodyaches. Patient stated that he has been having burning with urination for the last few days. Patient also complained of lower back pain. Patient also endorsing that he was having fevers with chills. Patient also complaining of bodyaches. Patient denies any chest pain. There is no complaint of shortness of breath. Patient complaining of nonproductive cough. Because of the symptoms, patient brought in the ER Initial lab work done in the ER showed WBC 17.4, hemoglobin 15.3, platelet count 331, sodium 135, potassium 3.5, chloride 99, carbon is a 24, BUN 20, creatinine 0.54, lactate 2.1 alk phos 145 UA done showed large amount of leukocyte Estrace, urine WBC 109 Influenza A not detected Influenza B not detected RSV not detected COVID-19 not detected EKG done in the ER showed heart rate of 127, no ST segment elevation or depression seen, no T-wave inversions seen. Chest x-ray done in the ER showed no acute cardiopulmonary process Further Hospital course: Patient was admitted hospital for further evaluation and management of sepsis secondary to acute pyelonephritis and left lower extremity cellulitis. Ultrasound venous lower extremity was negative for DVT. Urine culture grew staph epi oxacillin resistant, repeat urine analysis was unremarkable. Patient received IV vancomycin during hospitalization, continued on Zyvox for 10 days at discharge per infectious disease recommendations. Patient's condition and vital stable at discharge. Follow-up with PCP in 1 week. PHYSICAL EXAMINATION: GENERAL: The patient is A&O x3, NAD HEENT: EOMI, Sclerae anicteric, Moist Mucous membranes Neck: Supple, Non tender, No JVD PULMONARY: Equal breath souds B/L, No wheezing, No crackles. CARDIOVASCULAR: S1, S2 present. No murmurs, rubs, or gallops. ABDOMEN: Soft, nontender, nondistended, normoactive bowel sounds. No guarding or rebound tenderness. MUSCULOSKELETAL: No edema, No cyanosis. No clubbing. Normal ROM. Intact peripheral pulses. Left lower extremityace wrapped NEUROLOGICAL: CN 2-12 grossly intact. No FND SKIN: No rashes. Dictation was produced using [employer] dictation software. please excuse any grammatical, word or spelling errors. Patient Condition at Discharge: Stable Plan - Discharge Summary Discharge Rx Participant: Yes New Discharge Prescriptions: New Linezolid [Zyvox] 600 mg PO Q12H #20 tab Acetaminophen Tab [Tylenol] 650 mg PO Q6HR PRN tab PRN Reason: Mild Pain Or Fever > 100.5 Continue Cholecalciferol [Vitamin D3 (25 Mcg = 1000 Iu)] 50 mcg PO DAILY@1100 Zinc 50 mg PO DAILY@1100 Beet Root Powder 1 dose PO DAILY@1100 hydroCHLOROthiazide [Hydrodiuril] 25 mg PO DAILY@1100 Atorvastatin [Lipitor] 80 mg PO HS@2300 Magnesium(Unknown Dose) 1 tab PO HS@2300 Aspirin EC [Ecotrin Low Dose] 81 mg PO BID@1100,2300 carvediloL [Coreg] 3.125 mg PO BID@1100,2300 NIFEdipine XL [Procardia XL] 60 mg PO DAILY@1100 Valsartan 320 mg PO HS@2300 Discharge Medication List Cholecalciferol [Vitamin D3 (25 Mcg = 1000 Iu)] 50 mcg PO DAILY@1100 04/01/20 [History] Zinc 50 mg PO DAILY@1100 12/18/20 [History] Aspirin EC [Ecotrin Low Dose] 81 mg PO BID@1100,2300 09/12/24 [History] Atorvastatin [Lipitor] 80 mg PO HS@229909/12/24 [History] Beet Root Powder 1 dose PO DAILY@109909/12/24 [History] Magnesium(Unknown Dose) 1 tab PO HS@229909/12/24 [History] NIFEdipine XL [Procardia XL] 60 mg PO DAILY@109909/12/24 [History] Valsartan 320 mg PO HS@229909/12/24 [History] carvediloL [Coreg] 3.125 mg PO BID@1100,229909/12/24 [History] hydroCHLOROthiazide [Hydrodiuril] 25 mg PO DAILY@109909/12/24 [History] Linezolid [Zyvox] 600 mg PO Q12H #20 tab 09/16/24 [Rx] Acetaminophen Tab [Tylenol] 650 mg PO Q6HR PRN tab 09/17/24 [Rx] Follow up Appointment(s)/Referral(s): Alli Spear [Primary Care Provider] - 1-2 days Discharge Disposition: HOME SELF-CARE
--- NOTE | 2024-09-17 14:51 | P.PN ---
Subjective Progress Note Date: 09/17/24 Principal diagnosis: Reason for follow-up is UTI Patient is a 69-year-old male with a past medical history significant for hypertension [place] sleep apnea coronary artery disease, presenting to the hospital with difficulty burning urination and pain diagnosed with a symptomatic UTI On today's evaluation that is 09/17/2024, the patient continues to be afebrile, the patient is on room air and breathing comfortably, the Pt denies having any chest pain or cough, the patient denies having any abdominal pain no vomiting or any diarrhea overall pain swelling and redness to the left leg has decreased admission feeling better. Patient did have creatinine 0.73 blood culture has been negative Objective - Vital Signs Vital signs: Vital Signs Temp 98.3 F 09/17/24 06:59 Pulse 68 09/17/24 06:59 Resp 18 09/17/24 06:59 BP 141/76 09/17/24 06:59 Pulse Ox 98 09/17/24 06:59 FiO2 Intake & Output 09/16/24 09/17/24 09/17/24 18:59 06:59 18:59 Output Total 375 Balance -375 Output: Urine 375 Other: Voiding Method Toilet Urinal # Voids 3 650 - Exam GENERAL DESCRIPTION: An elderly male lying in bed in no distress RESPIRATORY SYSTEM: Unlabored breathing , decreased breath sounds at bases HEART: S1 S2 regular rate and rhythm , ABDOMEN: Soft , no tenderness EXTREMITIES: Left leg currently wrapped with [place] wrap no drainage - Labs CBC & Chem 7: 09/16/24 07:24 09/17/24 05:33 Assessment and Plan (1) UTI (urinary tract infection) Status: Acute Code(s): N39.0 - URINARY TRACT INFECTION, SITE NOT SPECIFIED SNOMED Code(s): 82164400 (2) Left leg cellulitis Status: Acute Code(s): L03.116 - CELLULITIS OF LEFT LOWER LIMB SNOMED Code(s): 83293925308934416 Plan: 1patient was in the hospital with sepsis in this patient noted to have fever tachycardia elevated white count, elevated lactic acid meeting criteria for SIRS source is urinary in this patient who did have a urinary symptom concerning for possible Pyelonephritis ultrasound was negative for any hydronephrosis or stone. 2patient urine has been finalized with oxacillin resistant staph epi, possible contaminant as repeat UA done yesterday has been negative, UTI has been adequately treated 3patient with cellulitis of left lower extremity, did have improvement with IV vancomycin will finish therapy with oral Zyvox prescription already sent to the pharmacy advised to continue with [place] wrap for compression and will benefit from vascular surgery evaluation in the outpatient setting Dictation was produced using [employer] dictation software. please excuse any grammatical, word or spelling errors. Time with Patient: Less than 30
== END 2024-09-17 14:06 | disposition home or self-care (01) | DRG 872 ==
LOC: EC 02:10 → 4SSUR 04:06
PROVIDERS: ADMIT Internal Medicine; ATTEND Internal Medicine
DX: A41.1 Sepsis due to other specified staphylococcus (principal); E87.21 Acute metabolic acidosis; I10 Essential (primary) hypertension; N17.9 Acute kidney failure, unspecified; N10 Acute pyelonephritis; L03.116 Cellulitis of left lower limb; Z89.519 Acquired absence of unspecified leg below knee; I25.10 Atherosclerotic heart disease of native coronary artery without angina pectoris; M54.50 Low back pain, unspecified; E78.00 Pure hypercholesterolemia, unspecified; I25.2 Old myocardial infarction; Z79.02 Long term (current) use of antithrombotics/antiplatelets; Z79.82 Long term (current) use of aspirin; Z79.899 Other long term (current) drug therapy; Z82.49 Family history of ischemic heart disease and other diseases of the circulatory system; Z87.440 Personal history of urinary (tract) infections; Z87.891 Personal history of nicotine dependence
CPT/HCPCS: 36415; 71046; 76770; 80048; 80053; 81001; 81003; 82565; 83605; 84145; 85025; 85652; 86140; 87040; 87077; 87086; 87186; 87636; 93005; 96361; 96365; 96366; 96367; 96375; 99291

== ENCOUNTER 2024-10-04 15:57 | Emergency (ER) | payer MEDICARE, OTHER ==
--- NOTE | 2024-10-04 16:54 | ED ---
Skin/Abscess/FB HPI - General Chief complaint: Skin/Abscess/Foreign Body Stated complaint: L Leg Swelling Time Seen by Provider: 10/04/24 16:30 Source: patient, RN notes reviewed, old records reviewed Mode of arrival: ambulatory Limitations: no limitations - History of Present Illness MD complaint: rash, abscess/boil, discoloration - Related Data Home Medications Medication Instructions Recorded Confirmed Zinc 50 mg PO DAILY@109912/18/20 10/04/24 Aspirin EC [Ecotrin Low Dose] 81 mg PO BID@1100,229909/12/24 10/04/24 Atorvastatin [Lipitor] 80 mg PO HS@229909/12/24 10/04/24 NIFEdipine XL [Procardia XL] 60 mg PO DAILY@109909/12/24 10/04/24 Valsartan 320 mg PO HS@229909/12/24 10/04/24 carvediloL [Coreg] 3.125 mg PO BID@1099,229909/12/24 10/04/24 hydroCHLOROthiazide [Hydrodiuril] 25 mg PO DAILY@109909/12/24 10/04/24 Beet Root Powder Capsules Er 8,000 mg PO HS@229910/04/24 10/04/24 8,000mg Cholecalciferol [Vitamin D3 (125 125 mcg PO DAILY@109910/04/24 10/04/24 Mcg = 5000 Iu)] Magnesium Oxide [Magnesium] 500 mg PO HS@229910/04/24 10/04/24 [place] 500 mg PO DAILY@109910/04/24 10/04/24 [place] Iodine 225mg 225 mg PO DAILY@109910/04/24 10/04/24 Selenium 200 mcg PO DAILY@109910/04/24 10/04/24 Allergies Allergy/AdvReac Type Severity Reaction Status Date / Time No Known Allergies Allergy Verified 10/04/24 17:32 Review of Systems ROS Statement: Those systems with pertinent positive or pertinent negative responses have been documented in the HPI. ROS Other: All systems not noted in ROS Statement are negative. Past Medical History Past Medical History: Coronary Artery Disease (CAD), Hypertension, Myocardial Infarction (UT), Sleep Apnea/CPAP/BIPAP Additional Past Medical History / Comment(s): hypercholestremia Last Myocardial Infarction Date:: na History of Any Multi-Drug Resistant Organisms: None Reported Past Surgical History: Heart Catheterization With Stent Additional Past Surgical History / Comment(s): below the knee amputation. 2 fatty tumors removed. Past Anesthesia/Blood Transfusion Reactions: No Reported Reaction Date of Last Stent Placement:: na Past Psychological History: No Psychological Hx Reported Smoking Status: Former smoker Past Alcohol Use History: Rare Past Drug Use History: Marijuana - Past Family History Mother Family Medical History: Cancer (Bladder cancer), Congestive Heart Failure (CHF), Hypertension Father Family Medical History: Cancer, Hypertension Additional Family Medical History / Comment(s): prostate cancer Brother(s) Family Medical History: Congestive Heart Failure (CHF) Sister(s) Family Medical History: Cancer (Uterine cancer) General Exam Limitations: no limitations General appearance: alert, in no apparent distress Head exam: Present: atraumatic, normocephalic, normal inspection Eye exam: Present: normal appearance, PERRL, EOMI. Absent: scleral icterus, conjunctival injection, periorbital swelling ENT exam: Present: normal exam, mucous membranes moist Neck exam: Present: normal inspection. Absent: tenderness, meningismus, lymphadenopathy Respiratory exam: Present: normal lung sounds bilaterally. Absent: respiratory distress, wheezes, rales, rhonchi, stridor Cardiovascular Exam: Present: regular rate, normal rhythm, normal heart sounds. Absent: systolic murmur, diastolic murmur, rubs, gallop, clicks GI/Abdominal exam: Present: soft, normal bowel sounds. Absent: distended, tenderness, guarding, rebound, rigid Extremities exam: Present: normal inspection, full ROM, normal capillary refill. Absent: tenderness, pedal edema, joint swelling, calf tenderness Back exam: Present: normal inspection Neurological exam: Present: alert, oriented X3, CN II-XII intact Psychiatric exam: Present: normal affect, normal mood Skin exam: Present: warm, dry, intact, normal color. Absent: rash Course Vital Signs 10/04/24 16:17 Temperature 98.2 F Pulse Rate 86 Respiratory 15 Rate Blood Pressure 150/76 O2 Sat by Pulse 97 Oximetry - Reevaluation(s) Reevaluation #1: 10/04/24 16:53 Medical records reviewed Prior inpatient hospitalization for cellulitis reviewed Reevaluation #4: Was pt. sent in by a medical professional or institution (, PA, RELIEF MAN, urgent care, hospital, or half-way...) When possible be specific @ -no Did you speak to anyone other than the patient for history (EMS, parent, family, police, friend...)? What history was obtained from this source @ -no Did you review nursing and triage notes (agree or disagree)? Why? @ -agree Are old charts reviewed (outside hosp., previous admission, EMS record, old EKG, old radiological studies, urgent care reports/EKG's, half-way records)? Report findings @ -yes Differential Diagnosis (chest pain, altered mental status, abdominal pain women, abdominal pain men, vaginal bleeding, weakness, fever, dyspnea, syncope, headache, dizziness, GI bleed, back pain, seizure, CVA, palpatations, mental health, musculoskeletal)? @ -prior EKG interpreted by me (3pts min.). @ -yes X-rays interpreted by me (1pt min.). @ -yes negative for acute disease CT interpreted by me (1pt min.). @ -no U/S interpreted by me (1pt. min.). @ -no What testing was considered but not performed or refused? (CT, X-rays, U/S, labs)? Why? @ -none What meds were considered but not given or refused? Why? @ -none Did you discuss the management of the patient with other professionals (professionals i.e. , PA, RELIEF MAN, lab, RT, psych nurse, social economist, orthodontic assistant, teacher, building drafting officer, case repairer)? Give summary @ -no Was smoking cessation discussed for >3mins.? @ -no Was critical care preformed (if so, how long)? @ -no Were there social determinants of health that impacted care today? How? (Homelessness, low income, unemployed, alcoholism, drug addiction, transportation, low edu. Level, literacy, decrease access to med. care, half-way, rehab)? @ -none Was there de-escalation of care discussed even if they declined (Discuss DNR or withdrawal of care, Hospice)? DNR status @ -no What co-morbidities impacted this encounter? (DM, HTN, Smoking, COPD, CAD, Cancer, CVA, ARF, Chemo, Hep., AIDS, mental health diagnosis, sleep apnea, morbid obesity)? @ -none Was patient admitted / discharged? Hospital course, mention meds given and route, prescriptions, significant lab abnormalities, going to OR and other pertinent info. @ - Undiagnosed new problem with uncertain prognosis? @ -no Drug Therapy requiring intensive monitoring for toxicity (Heparin, Nitro, Insulin, Cardizem)? @ -no Were any procedures done? @ -no Diagnosis/symptom? @ - Acute, or Chronic, or Acute on Chronic? @ -Acute Uncomplicated (without systemic symptoms) or Complicated (systemic symptoms)? @ -Complicated Side effects of treatment? @ -no Exacerbation, Progression, or Severe Exacerbation? @ -exacerbation Poses a threat to life or bodily function? How? (Chest pain, [place], [place], pneumonia, PE, COPD, DKA, ARF, appy, cholecystitis, CVA, Diverticulitis, Homicidal, Suicidal, threat to staff... and all critical care pts) @ -yes Disposition Clinical Impression: Left leg pain, Leg edema, Left leg cellulitis Disposition: HOME SELF-CARE Condition: Good Instructions (If sedation given, give patient instructions): Cellulitis (ED), Leg Edema (ED) Is patient prescribed a controlled substance at d/c from ED?: No Referrals: Alli Spear [Primary Care Provider] - 1-2 days Time of Disposition: 18:15
[2024-10-04] MEDS: SULFAMETHOX-TMP 800-160MG 1 EACH TAB PO STA (16:57)
[2024-10-04] MEDS: CEPHALEXIN 500 MG CAP PO STA (16:58)
--- NOTE | 2024-10-04 18:02 | US ---
EXAMINATION TYPE: US venous doppler duplex LE LT DATE OF EXAM: 10/04/2024 5:23 PM COMPARISON: 09/13/2024 CLINICAL INDICATION: Male, 69 years old with history of pain; patient states left leg swelling mostly in calf/ ankle and slight pain. states hx cellulitis in leg. no hx dvt. takes 2 baby aspirin daily., Pain TECHNIQUE: The lower extremity deep venous system is examined utilizing real time linear array sonog mitesh with graded compression, color doppler sonography, and spectral doppler. SIDE PERFORMED: Left FINDINGS: VESSELS IMAGED: Common Femoral Vein Deep Femoral Vein Greater Saphenous Vein * Femoral Vein Popliteal Vein Small Saphenous Vein * Proximal Calf Veins (* superficial vessels) Left Leg: appears negative for dvt, Color Doppler imaging shows patency of the vessels. Spectral wav eforms are within normal limits. IMPRESSION: No ultrasound evidence for deep venous thrombosis. [facility], , 10/04/2024 6:00 PM
--- NOTE | 2024-10-04 18:38 | XR ---
EXAMINATION TYPE: XR ankle complete LT DATE OF EXAM: 10/04/2024 6:03 PM COMPARISON: None CLINICAL INDICATION: Male, 69 years old with history of pain; PHH, pain TECHNIQUE: XR ankle complete LT; frontal, lateral and oblique projections. FINDINGS: There is no evidence of acute osseous pathology. No evidence of subluxation or dislocation. Kager's fat pad is intact. Mild soft tissue swelling around the ankle. No radiopaque foreign bodies are ident ified. Calcified granuloma posterior medial subcutaneous tissues. IMPRESSION: 1. No evidence of acute fracture. 2. Extensive Subcutaneous swelling around the ankle likely secondary to underlying soft tissue injury . If this concern for fracture consider CT imaging [facility], , 10/04/2024 6:35 PM
[2024-10-04 18:41] VITALS: BP 123/67; PULSE 70; RESP 16; TEMP 97.9
== END 2024-10-04 18:41 | disposition home or self-care (01) ==
LOC: EC 15:57
DX: L03.116 Cellulitis of left lower limb (principal); Z87.891 Personal history of nicotine dependence
CPT/HCPCS: 99283